=== PATIENT | male | born 1950 | race American Indian/Alaskan Native ===

== ENCOUNTER 2018-09-18 14:52 | Inpatient (IN) | payer MEDICARE ==
[2018-09-18] MEDS ORDERED: ASPIRIN PO ONE (14:58)
--- NOTE | 2018-09-18 14:58 | Emergency Department Report ---
Blank Doc - Documentation Documentation: This is a 67-year-old male that presents with chest pain. Stated started this morning. stated has SOB and radiating to left neck area. PMH includes CHF, a-fib, pulmonary edema, end stage kidney disease This initial assessment diagnostic orders/clinical plan/treatment(s) is/are subject to change based on patient's health status, clinical progression and re- assessment by fellow clinical providers in the ED. Further treatment and workup at subsequent clinical providers discretion. Patient/guardians urged not to elope from ED s their condition may be serious if not clinically assessed and managed. Initial orders include: 1-labs 2- chest xray 3- EKG
[2018-09-18] MEDS ORDERED: ASPIRIN ONE (15:02)
[2018-09-18 15:31] LABS: Basophils % (Auto) 0.5 % (0.0-1.8); Eosinophils % (Auto) 0.6 % (0.0-4.3); Hematocrit 34.9 % (35.5-45.6); Hemoglobin 11.2 gm/dl (11.8-15.2); Lymphocytes # (Auto) 0.6 K/mm3 (1.2-5.4); Lymphocytes % (Auto) 7.6 % (13.4-35.0); Mean Corpuscular HGB Conc 32 % (32-34); Mean Corpuscular Volume 92 fl (84-94); Monocytes % (Auto) 13.1 % (0.0-7.3); Platelet Count 134 K/mm3 (140-440); Red Cell Distribution Width 17.1 % (13.2-15.2)
[2018-09-18 15:38] LABS: Partial Thromboplastin Time 37.1 Sec. (24.2-36.6)
[2018-09-18 15:45] LABS: Albumin 3.7 g/dL (3.9-5); Calcium 10.3 mg/dL (8.4-10.2)
--- NOTE | 2018-09-18 16:07 | XRay Report ---
FINAL REPORT EXAM: XR CHEST ROUTINE 2V HISTORY: Chest Pain TECHNIQUE: Frontal and lateral views of the chest. PRIORS: Chest x-ray May 25, 2018. FINDINGS: Stable cardiomegaly. Stable elevated right hemidiaphragm. Small bilateral pleural effusions. No pneumothorax. No large con solidation. Mildly prominent bilateral pulmonary markings. There are no suspicious osseous lesions. Right upper thoracic vascular stent is unchanged. IMPRESSION: Suspect mild pulmonary vascular congestion. Small bilateral pleural effusions. Stable cardiomegaly.
[2018-09-18 16:19] LABS: INR 1.89 (0.87-1.13)
[2018-09-18 16:26] LABS: Chol/HDL Ratio 4.14 %
--- NOTE | 2018-09-18 16:38 | Emergency Department Report ---
ED Chest Pain HPI - General Chief Complaint: Chest Pain Stated Complaint: SEVERE NECK PAIN/CHEST PAIN Time Seen by Provider: 09/18/18 14:54 Source: patient Mode of arrival: Ambulatory Limitations: No Limitations - History of Present Illness Complaint: chest pain -: Sudden, This morning Time: 10:00 Onset: during rest Pain Location: left chest Pain Radiation: neck Severity: severe Severity scale (0 -10): 8 Quality: aching, pressure Consistency: now resolved Improves With: medication-other Worsens With: nothing re: denies: nausea, vomting Other Symptoms: cough Treatments Prior to Arrival: aspirin Aspirin use within the Past 7 Days: (1) Yes - Related Data Home Medications Medication Instructions Recorded Confirmed Last Taken Captopril (Nf) [Capoten (Nf)] 25 mg PO BID 05/25/18 05/25/18 Unknown Cinacalcet HCl [Sensipar] 90 mg PO DAILY 05/25/18 05/25/18 Unknown Furosemide [Lasix TAB] 40 mg PO QDAY 05/25/18 05/25/18 Unknown Hydralazine HCl 50 mg PO Q8H 05/25/18 05/25/18 Unknown Magnesium Oxide [Magnesium] 500 mg PO DAILY 05/25/18 05/25/18 Unknown Mycophenolate [Cellcept] 250 mg PO BID 05/25/18 05/25/18 Unknown NIFEdipine [Nifedipine ER] 30 mg PO BID 05/25/18 05/25/18 Unknown Pantoprazole [Protonix TAB] 40 mg PO QDAY 05/25/18 05/25/18 Unknown Potassium Chloride [Klor-Con] 20 meq PO BID 05/25/18 05/25/18 Unknown Tacrolimus [Prograf] 1 mg PO Q12H 05/25/18 05/25/18 Unknown Warfarin [Coumadin] 7.5 mg PO QDAY 05/25/18 05/25/18 Unknown predniSONE [Prednisone] 5 mg PO DAILY 05/25/18 05/25/18 Unknown Previous Rx's Medication Instructions Recorded Last Taken Type Polyethylene Glycol 3350 [Miralax 17 gm PO QDAY #30 powd.pack 05/27/18 Unknown Rx 3350] Allergies Allergy/AdvReac Type Severity Reaction Status Date / Time iodine Allergy Hives Verified 09/18/18 15:29 IVP DYE Allergy Hives Uncoded 08/31/13 09:00 Heart Score - HEART Score History: Highly suspicious EKG: Non-specific Age: > 65 Risk factors: > 3 risk factors or hx of atherosclerotic disease Troponin: 1-3x normal limit HEART Score: 8 - Critical Actions Critical Actions: >7 pts:50-65% risk of adverse cardiac event. Early invasive measures ED Review of Systems ROS: Stated complaint: SEVERE NECK PAIN/CHEST PAIN Other details as noted in HPI Comment: All other systems reviewed and negative Constitutional: denies: chills, fever Eyes: denies: eye pain, eye discharge, vision change ENT: denies: ear pain, throat pain Respiratory: cough, shortness of breath. denies: wheezing Cardiovascular: chest pain, edema. denies: palpitations Endocrine: no symptoms reported Gastrointestinal: denies: abdominal pain, nausea, diarrhea Genitourinary: denies: urgency, dysuria Musculoskeletal: denies: back pain, joint swelling, arthralgia Skin: denies: rash, lesions Neurological: denies: headache, weakness, paresthesias Psychiatric: denies: anxiety, depression Hematological/Lymphatic: denies: easy bleeding, easy bruising ED Past Medical Hx - Past Medical History Hx Hypertension: Yes Hx Congestive Heart Failure: Yes Hx Renal Disease: Yes (TRANSPLANT) Additional medical history: afib,PULMONARY EDEMA,ESRD - Surgical History Additional Surgical History: TRANSPLANT - Social History Smoking Status: Unknown if ever smoked Substance Use Type: None - Medications Home Medications: Home Medications Medication Instructions Recorded Confirmed Last Taken Type Captopril (Nf) [Capoten (Nf)] 25 mg PO BID 05/25/18 05/25/18 Unknown History Cinacalcet HCl [Sensipar] 90 mg PO DAILY 05/25/18 05/25/18 Unknown History Furosemide [Lasix TAB] 40 mg PO QDAY 05/25/18 05/25/18 Unknown History Hydralazine HCl 50 mg PO Q8H 05/25/18 05/25/18 Unknown History Magnesium Oxide [Magnesium] 500 mg PO DAILY 05/25/18 05/25/18 Unknown History Mycophenolate [Cellcept] 250 mg PO BID 05/25/18 05/25/18 Unknown History NIFEdipine [Nifedipine ER] 30 mg PO BID 05/25/18 05/25/18 Unknown History Pantoprazole [Protonix TAB] 40 mg PO QDAY 05/25/18 05/25/18 Unknown History Potassium Chloride [Klor-Con] 20 meq PO BID 05/25/18 05/25/18 Unknown History Tacrolimus [Prograf] 1 mg PO Q12H 05/25/18 05/25/18 Unknown History Warfarin [Coumadin] 7.5 mg PO QDAY 05/25/18 05/25/18 Unknown History predniSONE [Prednisone] 5 mg PO DAILY 05/25/18 05/25/18 Unknown History Polyethylene Glycol 3350 [Miralax 17 gm PO QDAY #30 powd.pack 05/27/18 Unknown Rx 3350] ED Physical Exam - General Limitations: No Limitations General appearance: alert, in no apparent distress - Head Head exam: Present: atraumatic, normocephalic - Eye Eye exam: Present: normal appearance, PERRL - ENT ENT exam: Present: normal exam, mucous membranes moist - Neck Neck exam: Present: normal inspection, full ROM. Absent: tenderness, meningismus - Respiratory Respiratory exam: Present: rales. Absent: respiratory distress - Cardiovascular Cardiovascular Exam: Present: regular rate, irregular rhythm, S3. Absent: systolic murmur, diastolic murmur, rubs, gallop - GI/Abdominal GI/Abdominal exam: Present: soft, normal bowel sounds. Absent: tenderness - Rectal Rectal exam: Present: deferred - Extremities Exam Extremities exam: Present: normal inspection, full ROM, normal capillary refill, pedal edema - Back Exam Back exam: Present: normal inspection, full ROM - Neurological Exam Neurological exam: Present: alert, oriented X3, CN II-XII intact - Psychiatric Psychiatric exam: Present: normal affect, normal mood - Skin Skin exam: Present: warm, dry, intact, normal color. Absent: rash ED Course Vital Signs 09/18/18 15:00 Temperature 97.6 F Pulse Rate 80 Respiratory 20 Rate Blood Pressure 154/105 O2 Sat by Pulse 98 Oximetry - Consultations Consultation #1: 09/18/18 17:34 I called and spoke with Dr Cody at [place] kidney transplant team and he recommend admitting the patient to the hospital here at [facility]. Consultation #2: 09/18/18 17:35 Dr Hess to admit patient for further management. LILY score - Lily Score Age > 65: (1) Yes Aspirin use within the Past 7 Days: (1) Yes 3 or more CAD Risk Factors: (1) Yes 2 or more Angina events in past 24 hrs: (1) Yes Known CAD with more than 50% Stenosis: (1) Yes Elevated Cardiac Markers: (1) Yes ST Deviation Greater than 0.5mm: (0) No LILY Score: 6 ED Medical Decision Making - Lab Data Result diagrams: 09/18/18 15:15 09/18/18 15:15 Lab Results 09/18/18 09/18/18 09/18/18 Range/Units 15:15 15:15 15:15 WBC 7.4 (4.5-11.0) K/mm3 RBC 3.80 (3.65-5.03) M/mm3 Hgb 11.2 L (11.8-15.2) gm/dl Hct 34.9 L (35.5-45.6) % MCV 92 (84-94) fl MCH 29 (28-32) pg MCHC 32 (32-34) % RDW 17.1 H (13.2-15.2) % Plt Count 134 L (140-440) K/mm3 Lymph % (Auto) 7.6 L (13.4-35.0) % [place] % (Auto) 13.1 H (0.0-7.3) % Eos % (Auto) 0.6 (0.0-4.3) % Baso % (Auto) 0.5 (0.0-1.8) % Lymph # 0.6 L (1.2-5.4) K/mm3 [place] # 1.0 H (0.0-0.8) K/mm3 Eos # 0.0 (0.0-0.4) K/mm3 Baso # 0.0 (0.0-0.1) K/mm3 Seg Neutrophils % 78.2 H (40.0-70.0) % Seg Neutrophils # 5.8 (1.8-7.7) K/mm3 PT 22.1 H (12.2-14.9) Sec. INR 1.89 H (0.87-1.13) APTT 37.1 H (24.2-36.6) Sec. Sodium 141 (137-145) mmol/L Potassium 3.8 (3.6-5.0) mmol/L Chloride 106.6 (98-107) mmol/L Carbon Dioxide 24 (22-30) mmol/L Anion Gap 14 mmol/L BUN 37 H (9-20) mg/dL Creatinine 2.4 H (0.8-1.5) mg/dL Estimated GFR 33 ml/min BUN/Creatinine Ratio 15 % Glucose 90 (75-100) mg/dL Calcium 10.3 H (8.4-10.2) mg/dL Total Bilirubin 0.60 (0.1-1.2) mg/dL AST 12 (5-40) units/L ALT 10 (7-56) units/L Alkaline Phosphatase 77 (35-129) units/L Troponin T 0.100 H (0.00-0.029) ng/mL Total Protein 6.0 L (6.3-8.2) g/dL Albumin 3.7 L (3.9-5) g/dL Albumin/Globulin Ratio 1.6 % Triglycerides 83 (2-149) mg/dL Cholesterol 236 H (50-199) mg/dL LDL Cholesterol Direct 182 H (50-130) mg/dL HDL Cholesterol 57 (40-59) mg/dL Cholesterol/HDL Ratio 4.14 % - EKG Data -: EKG Interpreted by Wa Rate: normal (64) - EKG Data When compared to previous EKG there are: no significant change (Compared to old EKG on 05/25/2019) Interpretation: nonspecific ST-T wave alicia, LVH 09/18/18 16:36 Atrial Fibrillation, Old anterior infarct. Lateral T wave inversion. No STEMI. - Radiology Data Radiology results: report reviewed, image reviewed CXR showed pleural effusion with increased pulmonary vascular markings consistent with CHF. - Medical Decision Making Chest Pain. ACS r/o M.I. Chronic kidney Disease. H/O [facility] transplant in 2014. Elevated Troponin, Patient is on Coumadin. I will admit to the hospitalist for further management and consult Cardiology. Critical care attestation.: If time is entered above; I have spent that time in minutes in the direct care of this critically ill patient, excluding procedure time. ED Disposition Clinical Impression: Elevated troponin, Kidney transplant recipient, ACS (acute coronary syndrome) Pulmonary edema Qualifiers: Chronicity: acute Qualified Code(s): J81.0 - Acute pulmonary edema CHF (congestive heart failure) Qualifiers: Heart failure type: diastolic Heart failure chronicity: chronic Qualified Code(s): I50.32 - Chronic diastolic (congestive) heart failure CKD (chronic kidney disease) Qualifiers: Chronic kidney disease stage: unspecified stage Qualified Code(s): N18.9 - Chronic kidney disease, unspecified Atrial fibrillation Qualifiers: Atrial fibrillation type: persistent Qualified Code(s): I48.1 - Persistent atrial fibrillation Disposition: OP ADMIT IP TO THIS HOSP Is pt being admited?: Yes Does the pt Need Aspirin: Yes Condition: Stable Instructions: Pulmonary Edema (ED) Time of Disposition: 17:40
[2018-09-18] MEDS ORDERED: NITRO-BID 2% TP ONE ×2 (17:06→17:27)
--- NOTE | 2018-09-18 17:32 | History and Physical Report ---
History of Present Illness Chief complaint: My neck hurts History of present illness: 67 YO Male with HTN, Atrial Fib on Therapeutic Anticoagulation, CKD S/P Renal Transplant on Graft Rejection Therapy, Malnutrition presents to ED for evaluation. Pt states that he has experienced sudden onset of pain in his neck that radiated down into his chest. Pt states that the pain is 8/10, severe, dull, radiates to and from his left neck, intermittent, not worsened with exertion or relieved with rest. Pt denies shortness of breath, fever, chills, palpitations, NVD, diaphoresis, trauma. Pt acknowledges decreased exercise chris erance. Pt transported to [facility] for further care and evaluation by his . Pt seen and evaluated in ED and found to have chest pain, Acute on Chronic Renal failure, as well as diastolic CHF. Pt admitted to telemetry. Cardiology team and Nephrology team consulted in ED. Past History Past Medical History: atrial fib, hypertension, renal failure Past Surgical History: valve replacement, Other (renal transplant, AVF) Social history: , lives with family. denies: smoking, alcohol abuse, prescription drug abuse Family history: CAD, hypertension, stroke Medications and Allergies Allergies Allergy/AdvReac Type Severity Reaction Status Date / Time iodine Allergy Hives Verified 09/18/18 15:29 IVP DYE Allergy Hives Uncoded 08/31/13 09:00 Home Medications Medication Instructions Recorded Confirmed Last Taken Type Captopril (Nf) [Capoten (Nf)] 25 mg PO BID 05/25/18 09/18/18 Unknown History Cinacalcet HCl [Sensipar] 90 mg PO HS 05/25/18 09/18/18 Unknown History Furosemide [Lasix TAB] 80 mg PO QDAY 05/25/18 09/18/18 Unknown History Hydralazine HCl 50 mg PO Q8H 05/25/18 09/18/18 Unknown History Mycophenolate [Cellcept] 250 mg PO BID 05/25/18 09/18/18 Unknown History NIFEdipine [Nifedipine ER] 60 mg PO BID 05/25/18 09/18/18 Unknown History Pantoprazole [Protonix TAB] 40 mg PO QDAY 05/25/18 09/18/18 Unknown History Potassium Chloride [Klor-Con] 20 meq PO BID 05/25/18 09/18/18 Unknown History Tacrolimus [Prograf] 1 mg PO Q12H 05/25/18 09/18/18 Unknown History Warfarin [Coumadin] 7.5 mg PO QDAY 05/25/18 09/18/18 Unknown History predniSONE [Prednisone] 5 mg PO DAILY 05/25/18 09/18/18 Unknown History Docusate Sodium [Colace CAP] 100 mg PO DAILY 09/18/18 09/18/18 Unknown History Multivitamin [Multiple Vitamins] 1 tab PO DAILY 09/18/18 09/18/18 Unknown His tory Review of Systems Constitutional: no weight loss, no weight gain, no fever, no chills Ears, nose, mouth and throat: no ear pain, no ear discharge, no tinnitis, no decreased hearing, no nose pain, no nasal congestion Cardiovascular: chest pain, no orthopnea, no palpitations, no edema, no shortness of breath, no dyspnea on exertion, no paroxysmal nocturnal dyspnea Respiratory: no cough, no cough with sputum, no excessive sputum, no hemoptysis Gastrointestinal: no nausea, no vomiting, no diarrhea Genitourinary Male: no dysuria, no hematuria, no flank pain Rectal: no pain, no incontinence, no bleeding Musculoskeletal: no neck stiffness, no neck pain, no shooting arm pain, no arm numbness/tingling Integumentary: no rash, no pruritis, no redness, no sores, no wounds Neurological: no paralysis, no weakness, no parathesias, no numbness, no tingling Psychiatric: no anxiety, no memory loss, no change in sleep habits, no sleep disturbances, no insomnia, no hypersomnia Endocrine: no cold intolerance, no heat intolerance, no polyphagia, no excessive thirst, no polydipsia, no polyuria Hematologic/Lymphatic: no easy bruising, no easy bleeding, no lymphadenopathy, no lymphedema Allergic/Immunologic: no urticaria, no allergic rhinitis, no persistent infections, no anaphylaxis Exam - Constitutional Vitals: Temp Pulse Resp BP Pulse Ox 97.6 F 80 20 154/105 98 09/18/18 15:00 09/18/18 15:00 09/18/18 15:00 09/18/18 15:00 09/18/18 15:00 General appearance: Present: mild distress - EENT Eyes: Present: PERRL ENT: hearing intact, clear oral mucosa - Neck Neck: Present: supple, normal ROM - Respiratory Respiratory effort: normal Respiratory: bilateral: CTA - Cardiovascular Heart Sounds: Present: S1 & S2. Absent: rub, click - Extremities Extremities: pulses symmetrical, No edema Peripheral Pulses: within normal limits - Abdominal General gastrointestinal: Present: soft, non-tender, non-distended, normal bowel sounds Male genitourinary: Present: normal - Integumentary Integumentary: Present: clear, warm, dry - Musculoskeletal Musculoskeletal: gait normal, strength equal bilaterally - Psychiatric Psychiatric: appropriate mood/affect, intact judgment & insight - Neurologic Neurologic: CNII-XII intact, moves all extremities Results - Labs CBC & Chem 7: 09/18/18 15:15 09/18/18 15:15 Labs: Abnormal lab results 09/18/18 09/18/18 09/18/18 Range/Units 15:15 15:15 15:15 Hgb 11.2 L (11.8-15.2) gm/dl Hct 34.9 L (35.5-45.6) % RDW 17.1 H (13.2-15.2) % Plt Count 134 L (140-440) K/mm3 Lymph % (Auto) 7.6 L (13.4-35.0) % [place] % (Auto) 13.1 H (0.0-7.3) % Lymph # 0.6 L (1.2-5.4) K/mm3 [place] # 1.0 H (0.0-0.8) K/mm3 Seg Neutrophils % 78.2 H (40.0-70.0) % PT 22.1 H (12.2-14.9) Sec. INR 1.89 H (0.87-1.13) APTT 37.1 H (24.2-36.6) Sec. BUN 37 H (9-20) mg/dL Creatinine 2.4 H (0.8-1.5) mg/dL Calcium 10.3 H (8.4-10.2) mg/dL Troponin T 0.100 H (0.00-0.029) ng/mL Total Protein 6.0 L (6.3-8.2) g/dL Albumin 3.7 L (3.9-5) g/dL Cholesterol 236 H (50-199) mg/dL LDL Cholesterol Direct 182 H (50-130) mg/dL Assessment and Plan - Patient Problems (1) ARF (acute renal failure) with tubular necrosis Current Visit: Yes Status: Acute Plan to address problem: IVF resuscitation, nephrology consulted, monitor uop q shift, avoid nephrotoxic agents. (2) HTN (hypertension) Current Visit: Yes Status: Acute Qualifiers: Hypertension type: essential hypertension Qualified Code(s): I10 - Essential (primary) hypertension Plan to address problem: monitor bp q shift, (3) Diastolic CHF Current Visit: Yes Status: Suspected Qualifiers: Heart failure chronicity: acute on chronic Qualified Code(s): I50.33 - Acute on chronic diastolic (congestive) heart failure Plan to address problem: Admit to telemetry, strict I/O, monitor uop q shift, daily weight, monitor bp q shift, cardiology consulted in ED, bnp, chest x ray, pulse oximetry (4) Atrial fibrillation Current Visit: Yes Status: Acute Qualifiers: Atrial fibrillation type: persistent Qualified Code(s): I48.1 - Persistent atrial fibrillation Plan to address problem: continue therapeutic anticoagulation, repeat INR, Initial INR is subtherqpeutic. (5) Kidney transplant recipient Current Visit: Yes Status: Acute Plan to address problem: Nephrology consulted in ED, continue prehospital medication. (6) Chest pain Current Visit: Yes Status: Acute Plan to address problem: Admit to telemetry, serial cardiac enzymes, cardiology consulted in ED, D dimer, therapeutic anticoagulation, review echo, morphine, supplemental oxygen,nitro, CT Neck to evaluate for pain that radiates to and from neck but is not reproducible upon palpitation, normal auscultation of neck vessels on exam. (7) DVT prophylaxis Current Visit: No Status: Acute Plan to address problem: SCD to BLE while in bed,
[2018-09-18] MEDS ORDERED: SODIUM CHLORIDE FLUSH SYRINGE 10 ML IV PRN ×2 (19:14→19:16)
[2018-09-18] MEDS ORDERED: ZOFRAN IV PRN (19:14)
[2018-09-18] MEDS ORDERED: TYLENOL PO PRN (19:14)
[2018-09-18] MEDS ORDERED: PROVENTIL IH PRN (19:14)
[2018-09-18] MEDS ORDERED: PEPCID PO SCH (22:00)
[2018-09-18] MEDS ORDERED: APRESOLINE IV PRN (22:24)
[2018-09-18] MEDS: PEPCID PO SCH (22:45)
[2018-09-18] MEDS: SODIUM CHLORIDE FLUSH SYRINGE 10 ML IV SCH (22:45)
[2018-09-19] MEDS ORDERED: NON-FORMULARY (Hydralazine Hcl [Hydralazine Hcl] 50 MG) PO SCH (07:45)
[2018-09-19 09:18] LABS: Hematocrit 34.8 % (35.5-45.6); Hemoglobin 11.4 gm/dl (11.8-15.2); Mean Corpuscular HGB Conc 33 % (32-34); Mean Corpuscular Volume 90 fl (84-94); Red Blood Count 3.89 M/mm3 (3.65-5.03); Red Cell Distribution Width 17.3 % (13.2-15.2)
[2018-09-19 09:29] LABS: Calcium 10.7 mg/dL (8.4-10.2)
[2018-09-19 10:00] LABS: Platelet Count 61 K/mm3 (140-440)
[2018-09-19] MEDS ORDERED: PROTONIX PO SCH (10:00)
[2018-09-19] MEDS ORDERED: NON-FORMULARY (Nifedipine [Nifedipine Er] 60 MG) PO SCH (10:00)
[2018-09-19] MEDS ORDERED: MULTIVITAMIN PO SCH (10:00)
[2018-09-19] MEDS ORDERED: COUMADIN PO SCH ×2 (10:00→17:00)
--- NOTE | 2018-09-19 10:40 | Cat Scan Report ---
CT SCAN OF THE CERVICAL SPINE: HISTORY: Neck pain. TECHNIQUE: Contiguous 1.25 mm axial images of the cervical spine were obtained. Sagittal and coronal reformatted images. FINDINGS: No relevant comparison at this facility. There is reversal of normal cervical lordosis. There appears to be fusion of the C4-5 disc space which may be congenital. There is severe degenerative disc disease at C3-4, C5-6 and C6-7. Moderate bilateral uncovertebral spurring is suspected at these levels bilaterally. The remaining disc levels are within normal limits. The facet joints are in appropriate relationship. No significant hypertrophic changes. No obvious acute fracture, bony destruction or bone lesion. Although intraspinal contents can be obscured on CT, no large epidural process is appreciated. IMPRESSION: Reversal of the normal cervical lordosis. Severe degenerative disc disease as outlined above. Apparent congenital disc fusion at C4-5. No acute process is detected on noncontrast CT.
--- NOTE | 2018-09-19 12:20 | Consultation ---
HISTORY OF PRESENT ILLNESS: The patient is a 67-year-old male who normally goes to [place] and he has a history of heart failure, leaky valve, hypertension and kidney transplant. It has been a while since he has had any stress testing or echocardiography. He is on medications for atrial fibrillation. He presented with neck pain that radiated to the chest and had a pleuritic component. It also would hurt to cough. There was no tenderness. Did not describe any exertional chest pain, he is relatively inactive. He occasionally has dyspnea on exertion. He has been having ankle edema. He cannot tell me which valve leaks. He does not watch his weight. 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 There is no history of coronary disease or strokes. The pain was prolonged and continues to be there to a mild degree. PAST MEDICAL HISTORY: Smoking: None. Alcohol: No heavy use. MEDICATIONS: See the nurse's list. OPERATIONS: Renal transplant. ALLERGIES: IODINE, IVP DYE. REVIEW OF SYSTEMS: He is inactive due to right knee problems. He did not describe any other medical problems or complaints. PHYSICAL EXAMINATION: GENERAL: Well-developed, well-nourished, no acute distress, alert, oriented and cooperative. Mental status normal. EYES, NOSE, AND THROAT: Unremarkable. NECK: Reveals JVD. There are no bruits. Neck is supple, no masses. LUNGS: Diminished breath sounds. No labored respirations. No rales or rhonchi. HEART: Irregular rhythm with a grade 2 systolic murmur along the left sternal border and a grade 2 diastolic murmur heard on both sides of the sternum. ABDOMEN: Soft, nontender, no masses. EXTREMITIES: No cyanosis, clubbing. Mild pedal edema. Peripheral pulses are intact, but diminished. NEUROLOGICAL: Symmetrical. DIAGNOSTIC DATA: EKG: Atrial fibrillation, possible prior septal infarct, LVH with repolarization abnormality. IMPRESSION: 1. Atypical chest pain suggestive of musculoskeletal etiology and no significant elevation of troponin. Troponin is probably elevated due to chronic kidney disease. Watch for evidence of pulmonary embolus or aortic dissection. 2. Congestive heart failure. 3. Aortic regurgitation murmur. 4. Uncontrolled hypertension. 5. Chronic kidney disease, status post renal transplant. 6. Hyperlipidemia. 7. Atrial fibrillation, on anticoagulation. 8. Thrombocytopenia. PLAN: Treat for heart failure, hypertension and perform echocardiography. Encourage dietary restrictions, daily weights, daily blood pressures. Thank you for this consultation. JOB# [id number] MORTEZA/TARA
[2018-09-19] MEDS: PEPCID PO SCH ×2 (12:37→22:07)
[2018-09-19] MEDS: LASIX PO SCH (12:37)
[2018-09-19] MEDS: CELLCEPT PO SCH ×2 (12:37→22:07)
[2018-09-19] MEDS: DELTASONE PO SCH (12:37)
[2018-09-19] MEDS: COLACE PO SCH (12:37)
[2018-09-19] MEDS ORDERED: APRESOLINE PO SCH ×2 (14:00)
--- NOTE | 2018-09-19 14:14 | Progress Note ---
Assessment and Plan (1) Chest pain monitor with serial cardiac enzymes, cont therapeutic anticoagulation, review echo, place on morphine, supplemental oxygen,nitro patch, CT Neck to evaluate for pain that radiates to and from neck but is not reproducible upon palpitation, normal auscultation of neck vessels on exam. cardiology consulted in ED - will follow recommendation (2) HTN (hypertension) monitor bp q shift, resume home meds (3) Diastolic CHF strict I/O, monitor uop q shift, daily weight, monitor bp q shift, cardiology consulted in ED, Preserved EF on echo on 05/2018 (4) Atrial fibrillation continue therapeutic anticoagulation, repeat INR, Initial INR is subtherqpeutic. (5) Kidney transplant recipient Nephrology consulted in ED, continue prehospital medication. (6) CKD with h/o renal transplant cont IVF resuscitation, nephrology consulted, monitor uop q shift, avoid nephrotoxic agents. cont home meds - anti graft rejection therapy (7) DVT prophylaxis SCD to BLE while in bed, Brief History: 67 YO Male with HTN, Atrial Fib on Therapeutic Anticoagulation, CKD S/P Renal Transplant on Graft Rejection Therapy, Malnutrition presents to ED for evaluation of sudden onset of pain in his neck that radiated down into his chest. Pt transported to [facility] for further care and evaluation by his . Pt seen and evaluated in ED and found to have chest pain, possible diastolic CHF. Pt admitted to telemetry. Cardiology team and Nephrology team consulted in ED. Hospitalist Physical exam: GENERAL: well-developed and well-nourished lying on bed appeared to be in no discomfort. HEENT: Normocephalic. Atraumatic. No conjunctival congestion or icterus. Patient has moist mucous membranes. NECK: Supple. Trachea midline. CHEST/LUNGS: Clear to auscultated bilaterally, breathing nonlabored. No wheezes crackles or rhonchi. HEART/CARDIOVASCULAR: Regular in rate and rhythm. S1 and S2 positive. ABDOMEN: Abdomen is soft, nontender. Patient has normal bowel sounds. SKIN: There is no rash. Warm and dry. NEURO: No focal motor deficit. Follows command. MUSCULOSKELETAL: No joint effusion or tenderness. EXTRIMITY: No edema, no cyanosis or clubbing. PSYCH: Cooperative. Subjective Date of service: 09/19/18 Interval history: Patient seen and examined. Medical records and medication list reviewed. No acute event overnight noted by the RN. Patient c/o intermittent chest pain but denies difficulty breathing. Patient is tolerating diet. Discussed plan of care at bedside with patient. Objective - Constitutional Vitals: Vital Signs - 12hr 09/19/18 09/19/18 09/19/18 04:50 08:54 10:38 Temperature 98.2 F 97.5 F L Pulse Rate 58 L 67 69 Respiratory 16 18 Rate Blood Pressure 159/84 173/97 O2 Sat by Pulse 97 96 Oximetry - Labs CBC & Chem 7: 09/19/18 08:41 09/19/18 08:41 Labs: Abnormal lab results 09/18/18 09/18/18 09/18/18 Range/Units 15:15 15:15 15:15 Hgb 11.2 L (11.8-15.2) gm/dl Hct 34.9 L (35.5-45.6) % RDW 17.1 H (13.2-15.2) % Plt Count 134 L (140-440) K/mm3 Lymph % (Auto) 7.6 L (13.4-35.0) % [place]roy[place] % (Auto) 13.1 H (0.0-7.3) % Lymph # 0.6 L (1.2-5.4) K/mm3 [place] # 1.0 H (0.0-0.8) K/mm3 Seg Neutrophils % 78.2 H (40.0-70.0) % PT 22.1 H (12.2-14.9) Sec. INR 1.89 H (0.87-1.13) APTT 37.1 H (24.2-36.6) Sec. D-Dimer (0-234) ng/mlDDU Chloride (98-107) mmol/L Carbon Dioxide (22-30) mmol/L BUN 37 H (9-20) mg/dL Creatinine 2.4 H (0.8-1.5) mg/dL Calcium 10.3 H (8.4-10.2) mg/dL Troponin T 0.100 H (0.00-0.029) ng/mL Total Protein 6.0 L (6.3-8.2) g/dL Albumin 3.7 L (3.9-5) g/dL Cholesterol 236 H (50-199) mg/dL LDL Cholesterol Direct 182 H (50-130) mg/dL 09/18/18 09/18/18 09/18/18 Range/Units 15:15 17:59 22:45 Hgb (11.8-15.2) gm/dl Hct (35.5-45.6) % RDW (13.2-15.2) % Plt Count (140-440) K/mm3 Lymph % (Auto) (13.4-35.0) % Arroyo % (Auto) (0.0-7.3) % Lymph # (1.2-5.4) K/mm3 [place] # (0.0-0.8) K/mm3 Seg Neutrophils % (40.0-70.0) % PT (12.2-14.9) Sec. INR (0.87-1.13) APTT (24.2-36.6) Sec. D-Dimer 766.2 H (0-234) ng/mlDDU Chloride (98-107) mmol/L Carbon Dioxide (22-30) mmol/L BUN (9-20) mg/dL Creatinine (0.8-1.5) mg/dL Calcium (8.4-10.2) mg/dL Troponin T 0.102 H* 0.091 H (0.00-0.029) ng/mL Total Protein (6.3-8.2) g/dL Albumin (3.9-5) g/dL Cholesterol (50-199) mg/dL LDL Cholesterol Direct (50-130) mg/dL 09/18/18 09/19/18 09/19/18 Range/Units 22:45 01:05 08:41 Hgb 11.4 L (11.8-15.2) gm/dl Hct 34.8 L (35.5-45.6) % RDW 17.3 H (13.2-15.2) % Plt Count 61 L (140-440) K/mm3 Lymph % (Auto) (13.4-35.0) % Arroyo % (Auto) (0.0-7.3) % Lymph # (1.2-5.4) K/mm3 [place] # (0.0-0.8) K/mm3 Seg Neutrophils % (40.0-70.0) % PT 23.1 H (12.2-14.9) Sec. INR 2.00 H (0.87-1.13) APTT (24.2-36.6) Sec. D-Dimer (0-234) ng/mlDDU Chloride (98-107) mmol/L Carbon Dioxide (22-30) mmol/L BUN (9-20) mg/dL Creatinine (0.8-1.5) mg/dL Calcium (8.4-10.2) mg/dL Troponin T 0.092 H (0.00-0.029) ng/mL Total Protein (6.3-8.2) g/dL Albumin (3.9-5) g/dL Cholesterol (50-199) mg/dL LDL Cholesterol Direct (50-130) mg/dL 09/19/18 Range/Units 08:41 Hgb (11.8-15.2) gm/dl Hct (35.5-45.6) % RDW (13.2-15.2) % Plt Count (140-440) K/mm3 Lymph % (Auto) (13.4-35.0) % Arroyo % (Auto) (0.0-7.3) % Lymph # (1.2-5.4) K/mm3 [place] # (0.0-0.8) K/mm3 Seg Neutrophils % (40.0-70.0) % PT (12.2-14.9) Sec. INR (0.87-1.13) APTT (24.2-36.6) Sec. D-Dimer (0-234) ng/mlDDU Chloride 107.1 H (98-107) mmol/L Carbon Dioxide 20 L (22-30) mmol/L BUN 32 H (9-20) mg/dL Creatinine 2.2 H (0.8-1.5) mg/dL Calcium 10.7 H (8.4-10.2) mg/dL Troponin T (0.00-0.029) ng/mL Total Protein (6.3-8.2) g/dL Albumin (3.9-5) g/dL Cholesterol (50-199) mg/dL LDL Cholesterol Direct (50-130) mg/dL
[2018-09-19] MEDS: PROGRAF PO SCH ×2 (16:27→22:12)
[2018-09-19] MEDS: POTASSIUM CHLORIDE PO SCH ×2 (16:27→22:08)
[2018-09-19] MEDS: APRESOLINE PO SCH ×2 (16:27→22:07)
[2018-09-19] MEDS: PROCARDIA XL PO SCH ×2 (16:27→22:07)
[2018-09-19] MEDS: HALFPRIN EC PO SCH (16:30)
[2018-09-19] MEDS: SODIUM CHLORIDE FLUSH SYRINGE 10 ML IV SCH ×2 (21:30→22:14)
[2018-09-19] MEDS ORDERED: NON-FORMULARY (Cinacalcet Hcl [Sensipar] 90 MG) PO SCH (22:00)
[2018-09-19] MEDS ORDERED: SENSIPAR PO SCH (22:00)
[2018-09-20] MEDS: APRESOLINE PO SCH ×2 (05:31→15:52)
[2018-09-20 07:44] LABS: INR 1.72 (0.87-1.13)
--- NOTE | 2018-09-20 10:08 | Consultation ---
History of Present Illness - History of Present Illness Thank you for the consultation Patient was evaluated on 09/19/2018 Time of service 9:45 in the morning Source of information: Patient himself as well as clinic records History of presenting illness Patient is 67-year-old -[place] male who has been admitted here for wo rkup of chest pain, patient has known history of kidney transplant in fact was last seen in our office on 05/25/2018 he does have history of cough chronic swelling in both lower extremity as well as the kidney transplant in January 2015 patient also has had BK virus infection. He has issues with noncompliance with his fluid and sodium intake and occasionally does have worsening swelling this time however doing much better he also suffers from chronic hypercalcemia, secondary hyperparathyroidism as well as anemia of chronic kidney disease. Patient concurrently does have history of cardiomyopathy as well as congestive heart failure and history of proteinuria. He is currently not been taking any form of non-steroidal drugs. 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: No acute distress HEENT: Normocephalic/atraumatic skull oral mucosa moist minimal pallor no icterus or uremic order Neck: Supple without any thyromegaly nodular mass or JVD Chest: Clear to auscultation anteriorly few faint basilar crackles otherwise unremarkable Heart: Regular rate and rhythm S1 and S2 heard no S3-S4 no pericardial rub Abdomen: Soft nontender no guarding rigidity rebound organomegaly no suprapubic masses, no CVA tenderness no renal bruit Back: No CVA tenderness Derm: No petechial rashes dry skin Extremity: Pulses palpable no peripheral cyanosis, 1+ edema dry skin Neurological: Alert awake follows commands Psychiatric: No agitation and aggression Labs and x-rays: Were reviewed from this admission Assessment and plan; Chest pain: Workup in progress Hypertension and volume: Patient needs to do better with fluid and sodium issues this has been a chronic issue in the outpatient setting Pending a CT scan of the neck Kidney transplant recipient continue the current dose of immunosuppressants, continue to monitor renal function avoid nephrotoxic medication History of congestive heart failure cardiomyopathy, proteinuria, secondary hyperparathyroidism He must follow renal and cardiac diet ad a detailed discussion with patient about the plan of care from renal standpoint. All questions were answered labs and pertinent imaging findings were explained to the patient and simple Jordanian. Advised patient to make an appointment for follow-up within a week of the discharge, for proper renal care We'll continue to follow and make recommendation from renal standpoint Thank you for the consultation. Past History Past Medical History: atrial fib, hypertension, renal failure Past Surgical History: valve replacement, Other (renal transplant, AVF) Social history: , lives with family. denies: smoking, alcohol abuse, pr escription drug abuse Family history: CAD, hypertension, stroke Medications and Allergies Allergies Allergy/AdvReac Type Severity Reaction Status Date / Time iodine Allergy Hives Verified 09/18/18 15:29 IVP DYE Allergy Hives Uncoded 08/31/13 09:00 Home Medications Medication Instructions Recorded Confirmed Last Taken Type Captopril (Nf) [Capoten (Nf)] 25 mg PO BID 05/25/18 09/18/18 Unknown History Cinacalcet HCl [Sensipar] 90 mg PO HS 05/25/18 09/18/18 Unknown History Furosemide [Lasix TAB] 80 mg PO QDAY 05/25/18 09/18/18 Unknown History Hydralazine HCl 50 mg PO Q8H 05/25/18 09/18/18 Unknown History Mycophenolate [Cellcept] 250 mg PO BID 05/25/18 09/18/18 Unknown History NIFEdipine [Nifedipine ER] 60 mg PO BID 05/25/18 09/18/18 Unknown History Pantoprazole [Protonix TAB] 40 mg PO QDAY 05/25/18 09/18/18 Unknown History Potassium Chloride [Klor-Con] 20 meq PO BID 05/25/18 09/18/18 Unknown History Tacrolimus [Prograf] 1 mg PO Q12H 05/25/18 09/18/18 Unknown History Warfarin [Coumadin] 7.5 mg PO QDAY 05/25/18 09/18/18 Unknown History predniSONE [Prednisone] 5 mg PO DAILY 05/25/18 09/18/18 Unknown History Docusate Sodium [Colace CAP] 100 mg PO DAILY 09/18/18 09/18/18 Unknown History Multivitamin [Multiple Vitamins] 1 tab PO DAILY 09/18/18 09/18/18 Unknown History Active Meds: Active Medications Acetaminophen (Tylenol) 650 mg PO Q4H PRN PRN Reason: Pain MILD(1-3)/Fever >100.5/NAVARRETE Albuterol (Proventil) 2.5 mg IH Q4HRT PRN PRN Reason: Shortness Of Breath Aspirin (Halfprin Ec) 81 mg PO QDAY [facility] Last Admin: 09/19/18 16:30 Dose: 81 mg Documented by: Atorvastatin Calcium (Lipitor) 40 mg PO QHS [facility] Last Admin: 09/19/18 22:07 Dose: 40 mg Documented by: Cinacalcet (Sensipar) 90 mg PO QHS [facility] Last Admin: 09/19/18 22:07 Dose: 90 mg Documented by: Docusate Sodium (Colace) 100 mg PO DAILY [facility] Last Admin: 09/19/18 12:37 Dose: 100 mg Documented by: Famotidine (Pepcid) 10 mg PO BID [facility] Last Admin: 09/19/18 22:07 Dose: 10 mg Documented by: Furosemide (Lasix) 80 mg PO QDAY [facility] Last Admin: 09/19/18 12:37 Dose: 80 mg Documented by: Hydralazine HCl (Apresoline) 10 mg IV Q6H PRN PRN Reason: Hypertension Last Admin: 09/18/18 22:45 Dose: 10 mg Documented by: Hydralazine HCl (Apresoline) 50 mg PO Q8HR [facility] Last Admin: 09/20/18 05:31 Dose: 50 mg Documented by: Mycophenolate Mofetil (Cellcept) 250 mg PO BID [facility] Last Admin: 09/19/18 22:07 Dose: 250 mg Documented by: Nifedipine (Procardia Xl) 60 mg PO BID [facility] Last Admin: 09/19/18 22:07 Dose: 60 mg Documented by: Ondansetron HCl (Zofran) 4 mg IV Q8H PRN PRN Reason: Nausea And Vomiting Pantoprazole Sodium (Protonix) 40 mg PO QDAY [facility] Last Admin: 09/19/18 12:37 Dose: 40 mg Documented by: Potassium Chloride (Potassium Chloride) 20 meq PO BID [facility] Last Admin: 09/19/18 22:08 Dose: 20 meq Documented by: Prednisone (Deltasone) 5 mg PO DAILY [facility] Last Admin: 09/19/18 12:37 Dose: 5 mg Documented by: Sodium Chloride (Sodium Chloride Flush Syringe 10 Ml) 10 ml IV BID [facility] Last Admin: 09/19/18 22:14 Dose: 10 ml Documented by: Sodium Chloride (Sodium Chloride Flush Syringe 10 Ml) 10 ml IV PRN PRN PRN Reason: LINE FLUSH Tacrolimus (Prograf) 1 mg PO Q12H [facility] Last Admin: 09/19/18 22:12 Dose: 1 mg Documented by: Warfarin Sodium (Coumadin) 7.5 mg PO DAILY@1700 [facility] Last Admin: 09/19/18 16:31 Dose: 7.5 mg Documented by: Exam - Vital Signs Vital signs: Vital Signs Temp Pulse Resp BP Pulse Ox 97.6 F 80 20 154/105 98 09/18/18 15:00 09/18/18 15:00 09/18/18 15:00 09/18/18 15:00 09/18/18 15:00 Results - Lab Results 09/19/18 08:41 09/19/18 08:41 Most recent lab results Calcium 10.7 mg/dL (8.4-10.2) H 09/19/18 08:41
--- NOTE | 2018-09-20 10:11 | Progress Note ---
Subjective Interval history: Patient was seen today for follow-up on multiple renal related issues Events of this hospitalization noted Patient claims to be taking Sensipar in the outpatient setting His chest pain and neck pain is better Patient denies having any chest pain pressure or shortness of breath Vitals labs intake output medications were reviewed Social history: Reviewed Allergies: Reviewed Family history: Reviewed Physical examination HEENT: Oral mucosa moist no pallor or icterus Neck: Supple no JVD Chest: Clear to auscultation anteriorly CVS: Regular rate and rhythm S1 and S2 heard Abdomen: Soft nontender no suprapubic masses no organomegaly appreciable Extremity: Dry skin less than 1+ peripheral edema Musculoskeletal: No joint effusion noted in knees and ankle Neurological: Alert awake Dermatology: No petechial rashes Psychiatry: No evidence of any agitation and aggression noted Assessment and plan Kidney transplant recipient: Continue the current doses of immunosuppressants, including prednisone CellCept as well as tacrolimus Renal function has been stable creatinine was 2.4 in May 2018 Congestive heart failure hypertension continue with diuretic for now, ejection fraction appears to be preserved Atrial fibrillation currently and anticoagulation Mild metabolic acidosis: Patient needs to be monitored for now Hypercalcemia chronic to monitor and follow check parathyroid level avoid any calcium or multivitamin, continue with Sensipar for now Creatinine currently around 2.4 Anemia likely in chronic kidney disease patient also does have thrombocytopenia needs to be monitored, avoid hydralazine in patients with thrombocytopenia Patient was adequately counseled and educated regarding multiple renal related issues Pertinent lab findings were discussed with patient, patient does exhibit good understanding of renal issues We'll continue to follow and make recommendation from renal standpoint Objective - Vital Signs Vital signs: Vital Signs - 12hr 09/19/18 09/20/18 09/20/18 23:30 05:29 05:31 Temperature 98.4 F 97.5 F L Pulse Rate 60 59 L 61 Respiratory 18 16 Rate Blood Pressure 171/82 147/74 147/74 O2 Sat by Pulse 97 93 Oximetry 09/20/18 09/20/18 08:27 08:28 Temperature 99.4 F Pulse Rate 89 Respiratory 20 Rate Blood Pressure 149/84 O2 Sat by Pulse 97 99 Oximetry - Lab 09/19/18 08:41 09/19/18 08:41 Most recent lab results Calcium 10.7 mg/dL (8.4-10.2) H 09/19/18 08:41 Medications & Allergies - Medications Allergies/Adverse Reactions: Allergies iodine Allergy (Verified 09/18/18 15:29) Hives IVP DYE Allergy (Uncoded 08/31/13 09:00) Hives Home Medications: Home Medications Medication Instructions Recorded Confirmed Last Taken Type Captopril (Nf) [Capoten (Nf)] 25 mg PO BID 05/25/18 09/18/18 Unknown History Cinacalcet HCl [Sensipar] 90 mg PO HS 05/25/18 09/18/18 Unknown History Furosemide [Lasix TAB] 80 mg PO QDAY 05/25/18 09/18/18 Unknown History Hydralazine HCl 50 mg PO Q8H 05/25/18 09/18/18 Unknown History Mycophenolate [Cellcept] 250 mg PO BID 05/25/18 09/18/18 Unknown History NIFEdipine [Nifedipine ER] 60 mg PO BID 05/25/18 09/18/18 Unknown History Pantoprazole [Protonix TAB] 40 mg PO QDAY 05/25/18 09/18/18 Unknown History Potassium Chloride [Klor-Con] 20 meq PO BID 05/25/18 09/18/18 Unknown History Tacrolimus [Prograf] 1 mg PO Q12H 05/25/18 09/18/18 Unknown History Warfarin [Coumadin] 7.5 mg PO QDAY 05/25/18 09/18/18 Unknown History predniSONE [Prednisone] 5 mg PO DAILY 05/25/18 09/18/18 Unknown History Docusate Sodium [Colace CAP] 100 mg PO DAILY 09/18/18 09/18/18 Unknown History Multivitamin [Multiple Vitamins] 1 tab PO DAILY 09/18/18 09/18/18 Unknown H istory Active Medications: Generic Name Dose Route Start Last Admin Trade Name Freq PRN Reason Stop Dose Admin Acetaminophen 650 mg 09/18/18 19:14 Tylenol PO Q4H PRN Pain MILD(1-3)/Fever >100.5/NAVARRETE Albuterol 2.5 mg 09/18/18 19:14 Proventil IH Q4HRT PRN Shortness Of Breath Aspirin 81 mg 09/19/18 10:00 09/19/18 16:30 Halfprin Ec PO 81 mg QDAY [facility] Administration Atorvastatin Calcium 40 mg 09/19/18 22:00 09/19/18 22:07 Lipitor PO 40 mg QHS [facility] Administration Cinacalcet 90 mg 09/19/18 22:00 09/19/18 22:07 Sensipar PO 90 mg QHS [facility] Administration Docusate Sodium 100 mg 09/19/18 10:00 09/19/18 12:37 Colace PO 100 mg DAILY [facility] Administration Famotidine 10 mg 09/18/18 22:00 09/19/18 22:07 Pepcid PO 10 mg BID [facility] Administration Furosemide 80 mg 09/19/18 10:00 09/19/18 12:37 Lasix PO 80 mg QDAY [facility] Administration Hydralazine HCl 10 mg 09/18/18 22:24 09/18/18 22:45 Apresoline IV 10 mg Q6H PRN Administration Hypertension Hydralazine HCl 50 mg 09/19/18 14:00 09/20/18 05:31 Apresoline PO 50 mg Q8HR [facility] Administration Mycophenolate Mofetil 250 mg 09/19/18 10:00 09/19/18 22:07 Cellcept PO 250 mg BID [facility] Administration Nifedipine 60 mg 09/19/18 13:15 09/19/18 22:07 Procardia Xl PO 60 mg BID [facility] Administration Ondansetron HCl 4 mg 09/18/18 19:14 Zofran IV Q8H PRN Nausea And Vomiting Pantoprazole Sodium 40 mg 09/19/18 10:00 09/19/18 12:37 Protonix PO 40 mg QDAY [facility] Administration Potassium Chloride 20 meq 09/19/18 10:00 09/19/18 22:08 Potassium Chloride PO 20 meq BID [facility] Administration Prednisone 5 mg 09/19/18 10:00 09/19/18 12:37 Deltasone PO 5 mg DAILY [facility] Administration Sodium Chloride 10 ml 09/18/18 22:00 09/19/18 22:14 Sodium Chloride Flush Syringe 10 Ml IV 10 ml BID [facility] Administration Sodium Chloride 10 ml 09/18/18 19:14 Sodium Chloride Flush Syringe 10 Ml IV PRN PRN LINE FLUSH Tacrolimus 1 mg 09/19/18 08:00 09/19/18 22:12 Prograf PO 1 mg Q12H [facility] Administration Warfarin Sodium 7.5 mg 09/19/18 17:00 09/19/18 16:31 Coumadin PO 7.5 mg DAILY@1700 [facility] Administration
[2018-09-20] MEDS: PROCARDIA XL PO SCH (10:40)
[2018-09-20] MEDS: DELTASONE PO SCH (10:41)
[2018-09-20] MEDS: PROGRAF PO SCH (10:41)
[2018-09-20] MEDS: CELLCEPT PO SCH (10:41)
[2018-09-20] MEDS: HALFPRIN EC PO SCH (10:41)
[2018-09-20] MEDS: LASIX PO SCH (10:41)
[2018-09-20] MEDS: COLACE PO SCH (10:41)
[2018-09-20] MEDS: POTASSIUM CHLORIDE PO SCH (10:41)
--- NOTE | 2018-09-20 11:05 | Progress Note ---
Assessment and Plan Hypertension, poorly controlled Chronic renal failure prior renal transplant Valvular heart disease moderate AI by echo 11/2017. mild AI with severe LA dilatation. Normal EF 55% by echo 05/2018. Atrial fibrillation, persistent on anticoagulation with Coumadin. H/O Diastolic heart failure H/O Prostate cancer treated with brachytherapy and radiation Marked cachexia Hypertension Thrombocytopenia Conservative cardiac management. 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 Subjective Date of service: 09/20/18 Interval history: Patient reports he is feeling better. He denies chest pain. Noted a significant drop in platelets, from 134,000 on yesterday to 61,000 today. Objective Vital Signs Temp Pulse Pulse Resp BP Pulse Ox 09/20/18 08:28 99 09/20/18 08:27 99.4 F 89 20 149/84 97 09/20/18 05:31 61 147/74 09/20/18 05:29 97.5 F L 59 L 16 147/74 93 09/19/18 23:30 98.4 F 60 18 171/82 97 09/19/18 22:07 70 159/91 09/19/18 22:00 70 20 97 09/19/18 21:43 64 18 156/91 97 09/19/18 19:10 51 L 09/19/18 15:43 59 L 168/86 98 - Physical Examination General: No Apparent Distress HEENT: Positive: PERRL Cardiac: Positive: irregularly irregular, Systolic Murmur Lungs: Positive: Decreased Breath Sounds Neuro: Positive: Grossly Intact - Labs and Meds Coagulation 09/20/18 Range/Units 07:19 PT 20.6 H (12.2-14.9) Sec. INR 1.72 H (0.87-1.13)
--- NOTE | 2018-09-20 15:02 | Discharge Summary ---
Providers - Providers Date of Admission: 09/18/18 19:14 Date of discharge: 09/20/18 Attending physician: DEANGELO VINCENT 09/18/18 Consult to Cardiac Rehabilitation [CONS] Routine Reason For Exam: Phase I 09/18/18 17:42 Consult to Physician [CONS] Routine Comment: Consulting Provider: ERIN PLASCENCIA Physician Instructions: Reason For Exam: Chest Pain, Elevated Troponin 09/18/18 19:16 Consult to Physician [CONS] Routine Comment: Consulting Provider: AUNG ALAMO Physician Instructions: Reason For Exam: renal failure Primary care physician: DOROTHEA ADAMES Hospitalization Condition: Stable Hospital course: Patient is a 67 yo man with a history of HTN, Atrial Fib on Therapeutic Anticoagulation, CKD S/P Renal Transplant on Graft Rejection Therapy, Malnutrition presents to ED for evaluation of sudden onset of pain in his neck that radiated down into his chest. Pt transported to [facility] for further care and evaluation by his . Pt seen and evaluated in ED and found to have chest pain, Pt admitted to telemetry. Cardiology team and Nephrology team consulted in ED. Chest pain, msk, costochondritis suspected, Cardiology evaluated HTN (hypertension), poorly controlled, monitor bp q shift, resume home meds Chronic Diastolic CHF, not acute Kidney transplant recipient, Nephrology consulted in ED, continue prehospital medication. CKD 3/4, with h/o renal transplant,at baseline Valvular heart disease, moderate AI by echo 11/2017. Mild AI with severe LA dilatation. Normal EF 55% by echo 05/2018. Atrial fibrillation, persistent, on anticoagulation with Coumadin. H/O Diastolic heart failure H/O Prostate cancer treated with brachytherapy and radiation Thrombocytopenia Neck pain; osteoarthritis, nothing acute on CT neck Disposition: DC-01 TO HOME OR SELFCARE Time spent for discharge: 33 minutes Core Measure Documentation - Palliative Care Palliative Care/ Comfort Measures: Not Applicable - Core Measures Any of the following diagnoses?: none - VTE Discharge Requirements Deep Vein Thrombosis/Pulmonary Embolism Present on Admission: No Has pt received <5 days of overlap therapy or INR<2.0: No Anticoagulant overlap therapy prescribed at discharge: No Contraindication No Overlap Therapy order at DC: Not Indicated Exam - Physical Exam Narrative exam: Hospitalist Physical exam: GENERAL: well-developed and well-nourished lying on bed appeared to be in no discomfort. HEENT: Normocephalic. Atraumatic. No conjunctival congestion or icterus. Patient has moist mucous membranes. NECK: Supple. Trachea midline. CHEST/LUNGS: Clear to auscultated bilaterally, breathing nonlabored. No wheezes crackles or rhonchi. HEART/CARDIOVASCULAR: Regular in rate and rhythm. S1 and S2 positive. ABDOMEN: Abdomen is soft, nontender. Patient has normal bowel sounds. SKIN: There is no rash. Warm and dry. NEURO: No focal motor deficit. Follows command. MUSCULOSKELETAL: No joint effusion or tenderness. EXTRIMITY: No edema, no cyanosis or clubbing. PSYCH: Cooperative. - Constitutional Vitals: Temp Pulse Resp BP Pulse Ox 99.4 F 85 20 149/84 99 09/20/18 08:27 09/20/18 10:00 09/20/18 08:27 09/20/18 08:27 09/20/18 08:28 Plan Activity: other (no strenous activity unless cleared by Cardiology) Diet: low salt, diabetic Follow up with: DOROTHEA ADAMES [Primary Care Provider] - 7 Days ERIN PLASCENCIA MD [Staff Physician] - 3 Days Forms: Warfarin Discharge Instruction
[2018-09-20 15:30] VITALS: BP 147/81
== END 2018-09-20 20:40 | disposition home or self-care (01) | DRG 205 ==
LOC: ED 14:52 → 4A 19:14
PROVIDERS: ADMIT Internal Medicine; ATTEND Internal Medicine
DX: M94.0 Chondrocostal junction syndrome [Tietze] (principal); N17.0 Acute kidney failure with tubular necrosis; Z94.0 Kidney transplant status; I50.32 Chronic diastolic (congestive) heart failure; I13.0 Hypertensive heart and chronic kidney disease with heart failure and stage 1 through stage 4 chronic kidney disease, or unspecified chronic kidney disease; I48.1 Persistent atrial fibrillation; E46 Unspecified protein-calorie malnutrition; I42.9 Cardiomyopathy, unspecified; E87.2 Acidosis; I38 Endocarditis, valve unspecified; R64 Cachexia; N25.81 Secondary hyperparathyroidism of renal origin; N18.4 Chronic kidney disease, stage 4 (severe); E83.52 Hypercalcemia; R07.89 Other chest pain; M19.91 Primary osteoarthritis, unspecified site; D63.1 Anemia in chronic kidney disease; Z85.46 Personal history of malignant neoplasm of prostate; D69.6 Thrombocytopenia, unspecified; Z68.20 Body mass index [BMI] 20.0-20.9, adult; Z82.49 Family history of ischemic heart disease and other diseases of the circulatory system
CPT/HCPCS: 36415; 71046; 72125; 80048; 80053; 80061; 84484; 85025; 85027; 85379; 85610; 85730; 87116; 93005; 93010; G0378; A9270-GY; J0360; J7507; J7512; J7517

== ENCOUNTER 2019-04-05 12:19 | Inpatient (IN) | payer MEDICARE ==
--- NOTE | 2019-04-05 12:31 | Event Note ---
ED Screening Note Date of service: 04/05/19 Time: 12:30 ED Screening Note: was sent by PCP for abnormal labs bilateral kidney transplant This initial assessment/diagnostic orders/clinical plan/treatment(s) is/are subject to change based on patients health status, clinical progression and re-assessment by fellow clinical providers in the ED. Further treatment and workup at subsequent clinical providers discretion. Patient/guardian urged not to elope from the ED as their condition may be serious if not clinically assessed and managed. Initial orders include: labs ordered
[2019-04-05 14:02] LABS: Basophils # (Auto) 0.1 K/mm3 (0.0-0.1); Eosinophils % (Auto) 0.2 % (0.0-4.3); Hematocrit 28.7 % (35.5-45.6); Hemoglobin 9.2 gm/dl (11.8-15.2); Lymphocytes # (Auto) 0.3 K/mm3 (1.2-5.4); Lymphocytes % (Auto) 3.5 % (13.4-35.0); Mean Corpuscular HGB Conc 32 % (32-34); Mean Corpuscular Volume 90 fl (84-94); Monocytes # (Auto) 0.6 K/mm3 (0.0-0.8); Monocytes % (Auto) 7.4 % (0.0-7.3); Platelet Count 182 K/mm3 (140-440); Red Blood Count 3.18 M/mm3 (3.65-5.03); Red Cell Distribution Width 16.9 % (13.2-15.2)
[2019-04-05 14:13] LABS: Calcium 11.4 mg/dL (8.4-10.2)
[2019-04-05] MEDS ORDERED: NACL 0.9% 500 ML 500 ML IV ONE (14:57)
--- NOTE | 2019-04-05 14:59 | Emergency Department Report ---
ED General Adult HPI - General Chief complaint: Recheck/Abnormal Lab/Rx Stated complaint: ABNORMAL LAB WORK/KIDNEY Time Seen by Provider: 04/05/19 12:29 Source: RN notes reviewed, old records reviewed Mode of arrival: Wheelchair Limitations: Altered Mental Status, Physical Limitation - History of Present Illness Initial comments: This is a 68-year-old gentleman. This patient is not known to this provider previously. History obtained from old medical records and from nursing documentation. Past medical records/history include hypertension, A. fib on anticoagulation, renal insufficiency, status post renal transplant, in the past has been on graft rejection therapy, uncertain if on antirejection meds at this time, malnutrition, left upper extremity fistula Patient reportedly sent to the ER for evaluation of worsening renal insufficiency as per primary care doctor. However, the patient is altered. He cannot tell me why he is here. He cannot answer whether or not he is having any pain. He does not know what medications he is taking. We have attempted to contact the patient's or collateral information, and left a voicemail for call back, as nobody has answered. In the emergency room, the patient is sleepy but arousable, moving 4 extremities and protecting his airway. No additional history is available at this time. -: unknown Radiation: other Quality: other Consistency: other Improves with: other Worsens with: other Associated Symptoms: other - Related Data Home Medications Medication Instructions Recorded Confirmed Last Taken Captopril (Nf) [Capoten (Nf)] 25 mg PO BID 05/25/18 09/18/18 Unknown Cinacalcet HCl [Sensipar] 90 mg PO HS 05/25/18 09/18/18 Unknown Furosemide [Lasix TAB] 80 mg PO QDAY 05/25/18 09/18/18 Unknown Hydralazine HCl 50 mg PO Q8H 05/25/18 09/18/18 Unknown Mycophenolate [Cellcept] 250 mg PO BID 05/25/18 09/18/18 Unknown NIFEdipine [Nifedipine ER] 60 mg PO BID 05/25/18 09/18/18 Unknown Pantoprazole [Protonix TAB] 40 mg PO QDAY 05/25/18 09/18/18 Unknown Potassium Chloride [Klor-Con] 20 meq PO BID 05/25/18 09/18/18 Unknown Tacrolimus [Prograf] 1 mg PO Q12H 05/25/18 09/18/18 Unknown Warfarin [Coumadin] 7.5 mg PO QDAY 05/25/18 09/18/18 Unknown predniSONE [Prednisone] 5 mg PO DAILY 05/25/18 09/18/18 Unknown Docusate Sodium [Colace CAP] 100 mg PO DAILY 09/18/18 09/18/18 Unknown Multivitamin [Multiple Vitamins] 1 tab PO DAILY 09/18/18 09/18/18 Unknown Allergies Allergy/AdvReac Type Severity Reaction Status Date / Time iodine Allergy Hives Verified 09/18/18 15:29 IVP DYE Allergy Hives Uncoded 08/31/13 09:00 ED Review of Systems ROS: Stated complaint: ABNORMAL LAB WORK/KIDNEY Other details as noted in HPI Comment: Unobtainable due to pts medical conditions ED Past Medical Hx - Past Medical History Hx Hypertension: Yes Hx Heart Attack/AMI: No Hx Congestive Heart Failure: Yes Hx Deep Vein Thrombosis: No Hx Renal Disease: No Hx Kidney Stones: No Additional medical history: afib,PULMONARY EDEMA,ESRD - Surgical History Hx Coronary Stent: No Hx Pacemaker: No Hx Internal Defibrillator: No Additional Surgical History: TRANSPLANT - Social History Smoking Status: Never Smoker Substance Use Type: None - Medications Home Medications: Home Medications Medication Instructions Recorded Confirmed Last Taken Type Captopril (Nf) [Capoten (Nf)] 25 mg PO BID 05/25/18 09/18/18 Unknown History Cinacalcet HCl [Sensipar] 90 mg PO HS 05/25/18 09/18/18 Unknown History Furosemide [Lasix TAB] 80 mg PO QDAY 05/25/18 09/18/18 Unknown History Hydralazine HCl 50 mg PO Q8H 05/25/18 09/18/18 Unknown History Mycophenolate [Cellcept] 250 mg PO BID 05/25/18 09/18/18 Unknown History NIFEdipine [Nifedipine ER] 60 mg PO BID 05/25/18 09/18/18 Unknown History Pantoprazole [Protonix TAB] 40 mg PO QDAY 05/25/18 09/18/18 Unknown History Potassium Chloride [Klor-Con] 20 meq PO BID 05/25/18 09/18/18 Unknown History Tacrolimus [Prograf] 1 mg PO Q12H 05/25/18 09/18/18 Unknown History Warfarin [Coumadin] 7.5 mg PO QDAY 05/25/18 09/18/18 Unknown History predniSONE [Prednisone] 5 mg PO DAILY 05/25/18 09/18/18 Unknown History Docusate Sodium [Colace CAP] 100 mg PO DAILY 09/18/18 09/18/18 Unknown History Multivitamin [Multiple Vitamins] 1 tab PO DAILY 09/18/18 09/18/18 Unknown History ED Physical Exam - General Limitations: Altered Mental Status General appearance: lethargic - Head Head exam: Present: atraumatic, normocephalic - Eye Eye exam: Present: normal appearance, PERRL, EOMI - ENT ENT exam: Present: normal exam, normal orophraynx, mucous membranes moist, normal external ear exam - Neck Neck exam: Present: normal inspection. Absent: tenderness, meningismus - Respiratory Respiratory exam: Present: decreased breath sounds. Absent: respiratory distress, wheezes, rales, rhonchi, stridor - Cardiovascular Cardiovascular Exam: Present: regular rate, irregular rhythm, normal heart sounds. Absent: bradycardia, tachycardia, systolic murmur, diastolic murmur, r ubs, gallop - GI/Abdominal GI/Abdominal exam: Present: soft. Absent: distended, tenderness, guarding, rebound, rigid, pulsatile mass - Rectal Rectal exam: Present: normal inspection, normal rectal tone, heme (-) stool, ot her (chaperoned by manolo Jiménez). Absent: heme (+) stool, black stool, bloody stool - Extremities Exam Extremities exam: Present: normal inspection (left upper extremity fistula, noted, with no redness, pus or streaking), pedal edema, other (2+ pulses noted in the bilateral upper, lower extremities. Compartments soft. No long bony tenderness. The pelvis is stable.). Absent: tenderness, calf tenderness - Back Exam Back exam: Absent: tenderness, CVA tenderness (R), CVA tenderness (L), paraspinal tenderness, vertebral tenderness - Neurological Exam Neurological exam: Present: altered, other (patient groans when he is examined. Occasionally moves 4 extremities. There is no facial droop. A detailed neurologic examination is not possible secondary to altered mental status) - Skin Skin exam: Present: warm ED Course Vital Signs 04/05/19 04/05/19 04/05/19 12:28 14:08 16:04 Temperature 98.1 F 97.5 F L Pulse Rate 78 60 70 Respiratory 22 16 16 Rate Blood Pressure 147/60 Blood Pressure 176/83 164/59 [Right] O2 Sat by Pulse 93 96 100 Oximetry 04/05/19 04/05/19 17:22 18:27 Temperature 98 F Pulse Rate 64 76 Respiratory 16 16 Rate Blood Pressure Blood Pressure 152/92 178/82 [Right] O2 Sat by Pulse 98 98 Oximetry - Reevaluation(s) Reevaluation #1: 04/05/19 16:10 Differential diagnosis, including but not limited to: Intracranial hemorrhage, intra-abdominal hemorrhage, pneumonia, urinary tract infection, acute on chronic renal insufficiency, toxic encephalopathy, metabolic encephalopathy, multifocal encephalopathy Assessment and plan: 68-year-old gentleman, with evidence of worsening renal insufficiency, today, creatinine is 2.1, also found to have pulmonary vascular congestion and lower extremity edema, without documented fever. Hemoglobin, hematocrit lower than when compared to prior values. The patient is guaiac negative. No additional collateral information is available at this time. We have consulted nephrology, Dr. Irene, and her group will follow in cons ultation. CT scan of the brain, abdomen and pelvis pending at this time. Patient guaiac-negative on rectal exam. Additional laboratory studies ordered. Patient appears to be volume overloaded, therefore, we will withhold fluids at this time. We will discuss diuretics with nephrology. Plan to admit once initial diagnostics have resulted. Reevaluation #2: 04/05/19 18:[address] Yang to admit Reevaluation #3: 04/05/19 18:31 ct abd pelvis negative for acute disease ED Medical Decision Making - Lab Data Result diagrams: 04/05/19 13:40 04/05/19 13:40 Vital Signs 04/05/19 04/05/19 12:28 14:08 Temperature 98.1 F Pulse Rate 78 60 Respiratory 22 16 Rate Blood Pressure 147/60 Blood Pressure 176/83 [Right] O2 Sat by Pulse 93 96 Oximetry Temp Pulse Resp BP Pulse Ox 98.1 F 60 16 176/83 96 04/05/19 12:28 04/05/19 14:08 04/05/19 14:08 04/05/19 14:08 04/05/19 14:08 Lab Results 08/28/19 08/28/19 08/28/19 Range/Units 13:40 13:40 15:20 WBC 8.4 (4.5-11.0) K/mm3 RBC 3.18 L (3.65-5.03) M/mm3 Hgb 9.2 L (11.8-15.2) gm/dl Hct 28.7 L (35.5-45.6) % MCV 90 (84-94) fl MCH 29 (28-32) pg MCHC 32 (32-34) % RDW 16.9 H (13.2-15.2) % Plt Count 182 (140-440) K/mm3 Lymph % (Auto) 3.5 L (13.4-35.0) % [place] % (Auto) 7.4 H (0.0-7.3) % Eos % (Auto) 0.2 (0.0-4.3) % Baso % (Auto) 1.0 (0.0-1.8) % Lymph # 0.3 L (1.2-5.4) K/mm3 [place] # 0.6 (0.0-0.8) K/mm3 Eos # 0.0 (0.0-0.4) K/mm3 Baso # 0.1 (0.0-0.1) K/mm3 Seg Neutrophils % 87.9 H (40.0-70.0) % Seg Neutrophils # 7.3 (1.8-7.7) K/mm3 PT 30.7 H (12.2-14.9) Sec. INR 3.01 H (0.87-1.13) Sodium 142 (137-145) mmol/L Potassium 3.8 (3.6-5.0) mmol/L Chloride 101.2 (98-107) mmol/L Carbon Dioxide 24 (22-30) mmol/L Anion Gap 21 mmol/L BUN 76 H (9-20) mg/dL Creatinine 4.1 H (0.8-1.5) mg/dL Estimated GFR 18 ml/min BUN/Creatinine Ratio 19 % Glucose 118 H (75-100) mg/dL Calcium 11.4 H (8.4-10.2) mg/dL - EKG Data -: EKG Interpreted by [facility] - EKG Data 04/05/19 16:33 This is atrial fibrillation, slow ventricular rate, 66 bpm, motion artifact, QTC 444 ms, no endorsement of chest pain, the EKG is abnormal, the EKG is not cons istent with ST elevation myocardial infarction - Radiology Data Radiology results: report reviewed, image reviewed Print Report Referring Physician: NEDA JOHNS Patient Name: SARAH THORNE Date of : 1950 Sex: Male Report Date: 2019-04-05 Report Status: Finalized Findings [facility] [address] [place] [address] XRay Report Signed Patient: SARAH THORNE MR#: [id number] : 1950 Acct:[id number] Age/Sex: 68 / M ADM Date: 04/05/19 Loc: ED Attending Dr: Ordering Physician: NEDA JOHNS MD Date of Service: 04/05/19 Procedure(s): XR chest 1V ap Accession Number(s): [id number] cc: NEDA JOHNS MD Fluoro Time In Minutes: CHEST 1 VIEW 04/05/2019 3:00 PM INDICATION / CLINICAL INFORMATION: Altered mental status. COMPARISON: 2 views of the chest from 09/18/2018. FINDINGS: SUPPORT DEVICES: None. HEART / MEDIASTINUM: Stable cardiomegaly and central vascular congestion. The right brachycephalic vein stent is unchanged. LUNGS / PLEURA: Generalized interstitial prominence is nonspecific. A small left pleural effusion is again seen. No pneumothorax is seen. ADDITIONAL FINDINGS: No significant additional findings. IMPRESSION: 1. No acute abnormality of the chest. 2. Additional stable findings as above. Signer Name: Pako Patricia MD Signed: 04/05/2019 3:22 PM Workstation Name: [id number] Transcribed By: ISIDRA Dictated By: Pako Patricia MD Electronically Authenticated By: Pako Patricia MD Signed Date/Time: 04/05/19 1522 COMPARISON: 01/14/2015 FINDINGS: There is a small right pleural effusion. Soft tissue contrast is poor due to lack of intra-abdominal fat. Small low-density liver lesions are probably cysts and appear unchanged. The spleen, pancreas and adrenal glands are grossly normal. There are atrophic, cystic kidneys consistent with chronic renal failure with renal calculi and calcifications seen as well. There is moderate vascular calcification without aneurysm. No gross gallbladder or biliary tree abnormality. No fluid or adenopathy in the upper abdomen. CT of the pelvis shows an apparent right iliac fossa renal transplant. Penile prosthesis is seen with reservoir in the left pelvis and brachytherapy seeds in the prostate. There is generalized soft tissue edema. There is no definite bowel obstruction or inflammatory process. In particular there is no intraperitoneal or retroperitoneal hemorrhage. IMPRESSION: No definite acute abnormality. Automated exposure control was utilized to diminish radiation dose. Signer Name: Keegan Johnson MD Signed: 04/05/2019 6:05 PM Workstation Name: [id number] Transcribed By: MAGGIE Dictated By: Keegan Johnson MD Electronically Au thenticated By: Keegan Johnson MD Signed Date/Time: 04/05/[address] head negative for acute findings Critical care attestation.: If time is entered above; I have spent that time in minutes in the direct care of this critically ill patient, excluding procedure time. ED Disposition Clinical Impression: Acute on chronic renal failure, Encephalopathy acute Disposition: DC-09 OP ADMIT IP TO THIS HOSP Is pt being admited?: Yes Condition: Fair Referrals: MADHU FLOYD MD [Primary Care Provider] - 3-5 Days
--- NOTE | 2019-04-05 15:27 | XRay Report ---
CHEST 1 VIEW 04/05/2019 3:00 PM INDICATION / CLINICAL INFORMATION: Altered mental status. COMPARISON: 2 views of the chest from 09/18/2018. FINDINGS: SUPPORT DEVICES: None. HEART / MEDIASTINUM: Stable cardiomegaly and central vascular congestion. The right brachycephalic ve in stent is unchanged. LUNGS / PLEURA: Generalized interstitial prominence is nonspecific. A small left pleural effusion is again seen. No pneumothorax is seen. ADDITIONAL FINDINGS: No significant additional findings. IMPRESSION: 1. No acute abnormality of the chest. 2. Additional stable findings as above. Signer Name: Pako Patricia MD Signed: 04/05/2019 3:22 PM Workstation Name: [id number]
[2019-04-05 15:56] LABS: INR 3.01 (0.87-1.13)
[2019-04-05 16:00] LABS: Partial Thromboplastin Time 65.1 Sec. (24.2-36.6)
--- NOTE | 2019-04-05 16:27 | Consultation ---
History of Present Illness - Reason for Consult acute renal failure - History of Present Illness 68-year-old gentleman with medical history significant for hypertension,congestive heart failure , Previous ESRD with Left arm AVF follows at [facility] follows with Dr. dial, Kidney transplant january 2015 now with worsening renal function , per office records creatinine was 3. 8 on 03/14 , creatinine was 2. 49, 05/2018 , creatinine was 3.11 on December 01 2018 . he admits to edema , denies any PND symptoms , denies any NSAID use , denies any dysuria or hematuria. He was thought to be confused in the emergency room. However was able to provide some history for me His medications include : Tacrolimus 1mg q 12hrs Cellcept 500mg 3 tabs bid Prednisone 5mg daily pantoprazole 40mg qd, sensipar 90mg warfarin 7.5mg qd potassium 20meq qd torsemide 40mg daily nifedipine 60mg daily Medications and Allergies Allergies Allergy/AdvReac Type Severity Reaction Status Date / Time iodine Allergy Hives Verified 09/18/18 15:29 IVP DYE Allergy Hives Uncoded 08/31/13 09:00 Home Medications Medication Instructions Recorded Confirmed Last Taken Type Captopril (Nf) [Capoten (Nf)] 25 mg PO BID 05/25/18 09/18/18 Unknown History Cinacalcet HCl [Sensipar] 90 mg PO HS 05/25/18 09/18/18 Unknown History Furosemide [Lasix TAB] 80 mg PO QDAY 05/25/18 09/18/18 Unknown History Hydralazine HCl 50 mg PO Q8H 05/25/18 09/18/18 Unknown History Mycophenolate [Cellcept] 250 mg PO BID 05/25/18 09/18/18 Unknown History NIFEdipine [Nifedipine ER] 60 mg PO BID 05/25/18 09/18/18 Unknown History Pantoprazole [Protonix TAB] 40 mg PO QDAY 05/25/18 09/18/18 Unknown History Potassium Chloride [Klor-Con] 20 meq PO BID 05/25/18 09/18/18 Unknown History Tacrolimus [Prograf] 1 mg PO Q12H 05/25/18 09/18/18 Unknown History Warfarin [Coumadin] 7.5 mg PO QDAY 05/25/18 09/18/18 Unknown History predniSONE [Prednisone] 5 mg PO DAILY 05/25/18 09/18/18 Unknown History Docusate Sodium [Colace CAP] 100 mg PO DAILY 09/18/18 09/18/18 Unknown History Multivitamin [Multiple Vitamins] 1 tab PO DAILY 09/18/18 09/18/18 Unknown History Review of Systems Constitutional: weight gain, no fever, no chills Ears, nose, mouth and throat: no ear pain, no ear discharge Cardiovascular: edema, no chest pain, no orthopnea, no palpitations, no shortness of breath Respiratory: no cough Gastrointestinal: no abdominal pain, no nausea, no vomiting Genitourinary Male: no dysuria, no hematuria Musculoskeletal: no neck stiffness, no neck pain Integumentary: no deferred, no rash, no blisters Neurological: no head injury, no transient paralysis Psychiatric: no anxiety, no memory loss Endocrine: no cold intolerance, no heat intolerance Hematologic/Lymphatic: no easy bruising, no easy bleeding Exam - Vital Signs Vital signs: Vital Signs Temp Pulse Resp BP Pulse Ox 98.1 F 78 22 147/60 93 04/05/19 12:28 04/05/19 12:28 04/05/19 12:28 04/05/19 12:28 04/05/19 12:28 - General Appearance General appearance: well-developed, well-nourished EENT: ATNC, PERRL Neck: Present: neck supple Respiratory: Clear to Ascultation Heart: regular, S1S2 Gastrointestinal: Present: normal, normoactive bowel sounds Integumentary: no rash Neurologic: alert and oriented x3, CN 3-12 intact Psychiatric: mood/affect appropriate Results - Lab Results 04/05/19 13:40 04/05/19 13:40 Most recent lab results Calcium 11.4 mg/dL (8.4-10.2) H 04/05/19 13:40 Magnesium 2.20 mg/dL (1.7-2.3) 04/05/19 15:20 - Image Kidney/bladder ultrasound: other (I reviewed chest x-ray with patchy opacities and perihilar opacity consistent with edema. ) Assessment and Plan - Patient Problems (1) Acute on chronic renal failure Current Visit: Yes Status: Acute Plan to address problem: Acute on chronic renal failure Creatinine has been worsening over the past year Apparently creatinine was 2.5 in May 2018 and then worsened to 3.1 in Amry of this year subsequently 3.8 early this month Obtain urinalysis Obtain renal ultrasound Obtain serologies We'll start diuretics Bumex 1 mg daily Strict input and output Check tacrolimus level (2) CHF (congestive heart failure) Current Visit: No Status: Acute Qualifiers: Heart failure type: diastolic Heart failure chronicity: chronic Qualified Code(s): I50.32 - Chronic diastolic (congestive) heart failure Plan to address problem: Congestive heart failure Chest x-ray with evidence of pulmonary congestion does have ankle edema. We'll starts Bumex 1 mg daily for now Low-salt diet Obtain echocardiogram (3) Renal transplant failure and rejection Current Visit: Yes Status: Acute Plan to address problem: Renal transplant failure Unclear if there is evidence of rejection Also unclear if the kidney has been biopsy in the past by transplant nephrology We'll need to discuss with patient's primary transplant [facility] possible nephrosclerosis versus rejection We'll need to determine if he needs to be transferred to [place] for further measures and treatment of a transplant versus dialysis if his renal function worsens Check tacrolimus level (4) HTN (hypertension) Current Visit: Yes Status: Acute Plan to address problem: Hypertension uncontrolled Resume home medications list obtained from clinic
[2019-04-05] MEDS ORDERED: BUMEX IV ONE (16:48)
[2019-04-05] MEDS ORDERED: PROCARDIA XL PO ONE (17:00)
--- NOTE | 2019-04-05 17:34 | Cat Scan Report ---
CT of the head without contrast INDICATION: Acute altered mental status.. TECHNIQUE: Routine CT head without contrast. All CT scans at this location are performed using CT dos e reduction for ALARA by means of automated exposure control. COMPARISON: None. FINDINGS: BRAIN / INTRACRANIAL CONTENTS: No acute hemorrhage, mass effect, midline shift, or hydrocephalus. No appreciable acute large territorial or lacunar infarct. There is a tiny chronic-appearing lacune in t he left thalamus. There are moderate areas of hypoattenuation in the white matter of the cerebral hem ispheres. Given the location and appearance, these most likely reflect chronic microvascular angiopat hic change. These are considered to be advanced (even for the patient's age) and probably indicate ch ronic hypertension, diabetes, and/or chronic kidney disease. This also appears to be resulting in kristine tral volume loss with ex vacuo dilation of the ventricular system. ORBITS: Glaucoma reservoir present in the left orbit. SINUSES / MASTOIDS: There is nonaggressive fluid partially opacifying the right mastoid and right mid dle ear with under aeration of the right mastoid, likely developmental. ADDITIONAL FINDINGS: None. IMPRESSION: 1. No acute hemorrhage or other acute intracranial abnormality. 2. Moderate cerebral white matter hypoattenuation with pattern most suggestive of chronic microvascul ar angiopathic change. 3. Chronic appearing lacunar infarct in the left thalamus. Signer Name: Jim Cruz MD Signed: 04/05/2019 5:29 PM Workstation Name: [id number]
--- NOTE | 2019-04-05 18:10 | Cat Scan Report ---
CT of the abdomen and pelvis without contrast INDICATION: Abdominal pain, bleeding COMPARISON: 01/14/2015 FINDINGS: There is a small right pleural effusion. Soft tissue contrast is poor due to lack of intra- abdominal fat. Small low-density liver lesions are probably cysts and appear unchanged. The spleen, p ancreas and adrenal glands are grossly normal. There are atrophic, cystic kidneys consistent with chr onic renal failure with renal calculi and calcifications seen as well. There is moderate vascular nico cification without aneurysm. No gross gallbladder or biliary tree abnormality. No fluid or adenopathy in the upper abdomen. CT of the pelvis shows an apparent right iliac fossa renal transplant. Penile prosthesis is seen with reservoir in the left pelvis and brachytherapy seeds in the prostate. There is generalized soft tiss ue edema. There is no definite bowel obstruction or inflammatory process. In particular there is no i ntraperitoneal or retroperitoneal hemorrhage. IMPRESSION: No definite acute abnormality. Automated exposure control was utilized to diminish radiation dose. Signer Name: Keegan Johnson MD Signed: 04/05/2019 6:05 PM Workstation Name: [id number]
[2019-04-05 20:36] LABS: Bilirubin,Urine Negative (Negative); Blood,Urine Small (Negative); Color,Urine Yellow (Yellow)
[2019-04-05 20:37] LABS: Mucus,Urine Few /HPF; Urobilinogen,Urine < 2.0 mg/dL (<2.0)
--- NOTE | 2019-04-05 20:47 | Ultrasound Report ---
] Renal transplant ultrasound INDICATION: Renal failure FINDINGS: The renal transplant measures 9 cm in length. It shows good cortical thickness of normal ec hogenicity. No cystic or solid renal masses. There is no hydronephrosis or obstruction. There is good arterial flow to the right kidney with no definite evidence for renal artery occlusion. The [facility] r ight kidney measures 6.9 cm in length and may be hydronephrotic. Signer Name: Keegan Johnson MD Signed: 04/05/2019 8:42 PM Workstation Name: [id number]
[2019-04-05] MEDS ORDERED: CELLCEPT PO SCH (22:00)
[2019-04-05] MEDS ORDERED: CAPTOPRIL 25 MG PO SCH (22:30)
[2019-04-05] MEDS ORDERED: TYLENOL PO PRN (22:38)
[2019-04-05] MEDS ORDERED: DILAUDID IV PRN (22:38)
[2019-04-05] MEDS ORDERED: SODIUM CHLORIDE FLUSH SYRINGE 10 ML IV PRN (22:38)
[2019-04-05] MEDS ORDERED: REGLAN IV PRN (22:38)
[2019-04-05] MEDS ORDERED: ZOFRAN IV PRN (22:38)
[2019-04-05] MEDS ORDERED: PROGRAF PO SCH (23:00)
[2019-04-05] MEDS ORDERED: NACL 0.9% 1000 ML 1,000 ML IV SCH (23:00)
[2019-04-06] MEDS: CELLCEPT PO SCH ×2 (04:25→10:05)
[2019-04-06] MEDS: PROCARDIA XL PO SCH ×3 (04:26→16:52)
[2019-04-06] MEDS: PROGRAF PO SCH ×3 (04:26→19:00)
[2019-04-06] MEDS: POTASSIUM CHLORIDE PO SCH ×2 (04:27→10:05)
[2019-04-06] MEDS: APRESOLINE PO SCH ×3 (04:38→12:51)
[2019-04-06 05:22] LABS: Basophils # (Auto) 0.1 K/mm3 (0.0-0.1); Basophils % (Auto) 1.3 % (0.0-1.8); Eosinophils % (Auto) 0.3 % (0.0-4.3); Hemoglobin 7.9 gm/dl (11.8-15.2); Lymphocytes # (Auto) 0.3 K/mm3 (1.2-5.4); Mean Corpuscular HGB Conc 32 % (32-34); Mean Corpuscular Volume 91 fl (84-94); Monocytes # (Auto) 0.6 K/mm3 (0.0-0.8); Monocytes % (Auto) 6.3 % (0.0-7.3); Platelet Count 206 K/mm3 (140-440); Red Blood Count 2.73 M/mm3 (3.65-5.03); Red Cell Distribution Width 16.7 % (13.2-15.2)
[2019-04-06 05:35] LABS: Albumin 2.9 g/dL (3.9-5); Calcium 11.6 mg/dL (8.4-10.2)
--- NOTE | 2019-04-06 07:47 | History and Physical Report ---
History of Present Illness Date of examination: 04/05/19 Date of admission: 04/05/19 18:06 Chief complaint: Worsening renal function per PCP History of present illness: 68-year-old AAM with pmh of hypertension, A. fib on anticoagulation, renal insufficiency, status post renal transplant, in the past has been on graft rejection therapy, uncertain if on antirejection meds at this time, malnutrition, left upper extremity fistula presents to ED for evaluation of wo rsening renal insufficiency as per primary care doctor. However, the patient is altered. He cannot tell why he is here. He cannot answer whether or not he is having any pain. He does not know what medications he is taking. We have attempted to contact the patient's or collateral information, and left a voicemail for call back, as nobody has answered. In the emergency room, the patient is sleepy but arousable, moving 4 extremities and protecting his airway. No additional history is available at this time. Past Medical History Hypertension: Yes Congestive Heart Failure: Yes Additional medical history: A fib PULMONARY EDEMA ESRD Surgical History Additional Surgical History:Renal TRANSPLANT Social History Smoking Status: Never Smoker Substance Use Type: None Family History Htn Medications Home Medications: Home Medications Medication Instructions Recorded Confirmed Last Taken Type Captopril (Nf) [Capoten (Nf)] 25 mg PO BID 05/25/18 09/18/18 Unknown History Cinacalcet HCl [Sensipar] 90 mg PO HS 05/25/18 09/18/18 Unknown History Furosemide [Lasix TAB] 80 mg PO QDAY 05/25/18 09/18/18 Unknown History Hydralazine HCl 50 mg PO Q8H 05/25/18 09/18/18 Unknown History Mycophenolate [Cellcept] 250 mg PO BID 05/25/18 09/18/18 Unknown History NIFEdipine [Nifedipine ER] 60 mg PO BID 05/25/18 09/18/18 Unknown History Pantoprazole [Protonix TAB] 40 mg PO QDAY 05/25/18 09/18/18 Unknown History Potassium Chloride [Klor-Con] 20 meq PO BID 05/25/18 09/18/18 Unknown History Tacrolimus [Prograf] 1 mg PO Q12H 05/25/18 09/18/18 Unknown History Warfarin [Coumadin] 7.5 mg PO QDAY 05/25/18 09/18/18 Unknown History predniSONE [Prednisone] 5 mg PO DAILY 05/25/18 09/18/18 Unknown History Docusate Sodium [Colace CAP] 100 mg PO DAILY 09/18/18 09/18/18 Unknown History Multivitamin [Multiple Vitamins] 1 tab PO DAILY 09/18/18 09/18/18 Unknown History Review of Systems ROS: Stated complaint: ABNORMAL LAB WORK/KIDNEY Other details as noted in HPI Comment: Unobtainable due to pts medical conditions Medications and Allergies Allergies Allergy/AdvReac Type Severity Reaction Status Date / Time iodine Allergy Hives Verified 09/18/18 15:29 IVP DYE Allergy Hives Uncoded 08/31/13 09:00 Home Medications Medication Instructions Recorded Confirmed Last Taken Type Captopril (Nf) [Capoten (Nf)] 25 mg PO BID 05/25/18 09/18/18 Unknown History Cinacalcet HCl [Sensipar] 90 mg PO HS 05/25/18 09/18/18 Unknown History Furosemide [Lasix TAB] 80 mg PO QDAY 05/25/18 09/18/18 Unknown History Hydralazine HCl 50 mg PO Q8H 05/25/18 09/18/18 Unknown History Mycophenolate [Cellcept] 250 mg PO BID 05/25/18 09/18/18 Unknown History NIFEdipine [Nifedipine ER] 60 mg PO BID 05/25/18 09/18/18 Unknown History Pantoprazole [Protonix TAB] 40 mg PO QDAY 05/25/18 09/18/18 Unknown History Potassium Chloride [Klor-Con] 20 meq PO BID 05/25/18 09/18/18 Unknown History Tacrolimus [Prograf] 1 mg PO Q12H 05/25/18 09/18/18 Unknown History Warfarin [Coumadin] 7.5 mg PO QDAY 05/25/18 09/18/18 Unknown History predniSONE [Prednisone] 5 mg PO DAILY 05/25/18 09/18/18 Unknown History Docusate Sodium [Colace CAP] 100 mg PO DAILY 09/18/18 09/18/18 Unknown History Multivitamin [Multiple Vitamins] 1 tab PO DAILY 09/18/18 09/18/18 Unknown H istory Active Meds: Active Medications Acetaminophen (Tylenol) 650 mg PO Q4H PRN PRN Reason: Pain MILD(1-3)/Fever >100.5/NAVARRETE Cinacalcet (Sensipar) 90 mg PO HS [facility] Docusate Sodium (Colace) 100 mg PO DAILY [facility] Famotidine (Pepcid) 10 mg PO BID [facility] Hydralazine HCl (Apresoline) 50 mg PO Q8H [facility] Last Admin: 04/06/19 04:38 Dose: 50 mg Documented by: Hydromorphone HCl (Dilaudid) 0.5 mg IV Q3H PRN PRN Reason: Pain , Severe (7-10) Sodium Chloride (Nacl 0.9% 1000 Ml) 1,000 mls @ 75 mls/hr IV DIRECT [facility] Metoclopramide HCl (Reglan) 5 mg IV Q6H PRN PRN Reason: Nausea And Vomiting Miscellaneous Medication (Captopril (Nf)) 25 mg PO BID [facility] Multivitamins (Theragran Tab) 1 each PO DAILY [facility] Mycophenolate Mofetil (Cellcept) 250 mg PO BID [facility] Last Admin: 04/06/19 04:25 Dose: 250 mg Documented by: Nifedipine (Procardia Xl) 60 mg PO BID@0800,1700 [facility] Last Admin: 04/06/19 04:26 Dose: 60 mg Documented by: Ondansetron HCl (Zofran) 4 mg IV Q8H PRN PRN Reason: Nausea And Vomiting Pantoprazole Sodium (Protonix) 40 mg PO QDAY [facility] Potassium Chloride (Potassium Chloride) 20 meq PO BID [facility] Last Admin: 04/06/19 04:27 Dose: 20 meq Documented by: Prednisone (Deltasone) 5 mg PO DAILY [facility] Sodium Chloride (Sodium Chloride Flush Syringe 10 Ml) 10 ml IV BID [facility] Sodium Chloride (Sodium Chloride Flush Syringe 10 Ml) 10 ml IV PRN PRN PRN Reason: LINE FLUSH Tacrolimus (Prograf) 1 mg PO Q12HR [facility] Last Admin: 04/06/19 04:26 Dose: 1 mg Documented by: Tacrolimus (Prograf) 1 mg PO Q12HR [facility] Last Admin: 04/06/19 04:35 Dose: 1 mg Documented by: Warfarin Sodium (Coumadin) 7.5 mg PO QDAY [facility]; Protocol Exam - Constitutional Vitals: Temp Pulse Resp BP Pulse Ox 97.5 F L 85 18 178/84 96 04/06/19 02:00 04/06/19 02:00 04/06/19 02:00 04/06/19 02:00 04/06/19 02:00 General appearance: Present: no acute distress, well-nourished - EENT Eyes: Present: PERRL ENT: hearing intact, clear oral mucosa - Neck Neck: Present: supple, normal ROM - Respiratory Respiratory effort: normal Respiratory: bilateral: CTA - Cardiovascular Heart Sounds: Present: S1 & S2. Absent: rub, click - Extremities Extremities: no ischemia, pulses intact, pulses symmetrical, No edema Peripheral Pulses: within normal limits - Abdominal General gastrointestinal: Present: soft, non-tender, non-distended, normal bowel sounds Male genitourinary: Present: normal - Integumentary Integumentary: Present: clear, warm, dry - Musculoskeletal Musculoskeletal: strength equal bilaterally, generalized weakness - Psychiatric Psychiatric: other (Lethargic) - Neurologic Neurologic: CNII-XII intact, moves all extremities Results - Labs CBC & Chem 7: 04/06/19 04:49 04/06/19 04:49 Labs: Laboratory Last Values WBC 9.5 K/mm3 (4.5-11.0) 04/06/19 04:49 RBC 2.73 M/mm3 (3.65-5.03) L 04/06/19 04:49 Hgb 7.9 gm/dl (11.8-15.2) L 04/06/19 04:49 Hct 25.0 % (35.5-45.6) L 04/06/19 04:49 MCV 91 fl (84-94) 04/06/19 04:49 MCH 29 pg (28-32) 04/06/19 04:49 MCHC 32 % (32-34) 04/06/19 04:49 RDW 16.7 % (13.2-15.2) H 04/06/19 04:49 Plt Count 206 K/mm3 (140-440) 04/06/19 04:49 Lymph % (Auto) 3.0 % (13.4-35.0) L 04/06/19 04:49 [place] % (Auto) 6.3 % (0.0-7.3) 04/06/19 04:49 Eos % (Auto) 0.3 % (0.0-4.3) 04/06/19 04:49 Baso % (Auto) 1.3 % (0.0-1.8) 04/06/19 04:49 Lymph # 0.3 K/mm3 (1.2-5.4) L 04/06/19 04:49 Rabun # 0.6 K/mm3 (0.0-0.8) 04/06/19 04:49 Eos # 0.0 K/mm3 (0.0-0.4) 04/06/19 04:49 Baso # 0.1 K/mm3 (0.0-0.1) 04/06/19 04:49 Seg Neutrophils % 89.1 % (40.0-70.0) H 04/06/19 04:49 Seg Neutrophils # 8.5 K/mm3 (1.8-7.7) H 04/06/19 04:49 PT 30.7 Sec. (12.2-14.9) H 04/05/19 15:20 INR 3.01 (0.87-1.13) H 04/05/19 15:20 APTT 65.1 Sec. (24.2-36.6) H* 04/05/19 15:20 Sodium 141 mmol/L (137-145) 04/06/19 04:49 Potassium 4.4 mmol/L (3.6-5.0) 04/06/19 04:49 Chloride 101.6 mmol/L (98-107) 04/06/19 04:49 Carbon Dioxide 22 mmol/L (22-30) 04/06/19 04:49 22 mmol/L 04/06/19 04:49 BUN 78 mg/dL (9-20) H 04/06/19 04:49 4.0 mg/dL (0.8-1.5) H 04/06/19 04:49 Estimated GFR 18 ml/min 04/06/19 04:49 20 % 04/06/19 04:49 Glucose 109 mg/dL (75-100) H 04/06/19 04:49 5.6 % (4-6) 04/05/19 13:40 Lactic Acid 0.80 mmol/L (0.7-2.0) 04/05/19 15:20 Calcium 11.6 mg/dL (8.4-10.2) H 04/06/19 04:49 Magnesium 2.20 mg/dL (1.7-2.3) 04/05/19 15:20 0.40 mg/dL (0.1-1.2) 04/06/19 04:49 AST 31 units/L (5-40) 04/06/19 04:49 ALT 12 units/L (7-56) 04/06/19 04:49 87 units/L (35-129) 04/06/19 04:49 18.0 umol/L (25-60) L 04/05/19 15:20 22 units/L (55-170) L 04/05/19 15:20 NT-Pro-B Natriuret Pep > 30029 pg/mL (0-900) H 04/05/19 15:38 6.3 g/dL (6.3-8.2) 04/06/19 04:49 2.9 g/dL (3.9-5) L 04/06/19 04:49 0.9 % 04/06/19 04:49 TSH 3.670 mlU/mL (0.270-4.200) 04/05/19 15:20 Yellow (Yellow) 04/05/19 19:58 Slightly cloudy (Clear) 04/05/19 19:58 6.0 (5.0-7.0) 04/05/19 19:58 Ur Specific [place] 1.010 (1.003-1.030) 04/05/19 19:58 100 mg/dl mg/dL (Negative) 04/05/19 19:58 Negative mg/dL (Negative) 04/05/19 19:58 Negative mg/dL (Negative) 04/05/19 19:58 Small (Negative) A 04/05/19 19:58 Negative (Negative) 04/05/19 19:58 Negative (Negative) 04/05/19 19:58 < 2.0 mg/dL (<2.0) 04/05/19 19:58 Ur Leukocyte Esterase Large (Negative) 04/05/19 19:58 28.0 /HPF (0.0-6.0) H 04/05/19 19:58 5.0 /HPF (0.0-6.0) 04/05/19 19:58 U Epithel Cells (Auto) < 1.0 /HPF (0-13.0) 04/05/19 19:58 Few /HPF 04/05/19 19:58 Salicylates < 0.3 mg/dL (2.8-20.0) L 04/05/19 15:20 Acetaminophen < 5.0 ug/mL (10.0-30.0) L 04/05/19 15:20 Plasma/Serum Alcohol < 0.01 % (0-0.07) 04/05/19 15:20 Short CBC 04/05/19 04/06/19 Range/Units 13:40 04:49 WBC 8.4 9.5 (4.5-11.0) K/mm3 Hgb 9.2 L 7.9 L (11.8-15.2) gm/dl Hct 28.7 L 25.0 L (35.5-45.6) % Plt Count 182 206 (140-440) K/mm3 BMP 04/05/19 04/06/19 13:40 04:49 Sodium 142 141 Potassium 3.8 4.4 Chloride 101.2 101.6 Carbon Dioxide 24 22 BUN 76 H 78 H Creatinine 4.1 H 4.0 H Glucose 118 H 109 H Calcium 11.4 H 11.6 H Cardiac Enzymes 04/05/19 Range/Units 15:20 Total Creatine Kinase 22 L (55-170) units/L Liver Function 04/06/19 Range/Units 04:49 Total Bilirubin 0.40 (0.1-1.2) mg/dL AST 31 (5-40) units/L ALT 12 (7-56) units/L Alkaline Phosphatase 87 (35-129) units/L Albumin 2.9 L (3.9-5) g/dL Urine 04/05/19 Range/Units 19:58 Urine Color Yellow (Yellow) Urine pH 6.0 (5.0-7.0) Ur Specific [place] 1.010 (1.003-1.030) Urine Protein 100 mg/dl (Negative) mg/dL Urine Glucose (UA) Negative (Negative) mg/dL - Imaging and Cardiology EKG: report reviewed (Afib LVH) Chest x-ray: report reviewed (NAF) CT scan - abdomen: report reviewed (NAF) CT Scan - head: report reviewed Imaging and Cardiology: Head CT IMPRESSION: 1. No acute hemorrhage or other acute intracranial abnormality. 2. Moderate cerebral white matter hypoattenuation with pattern most suggestive of chronic microvascular angiopathic change. 3. Chronic appearing lacunar infarct in the left thalamus. Assessment and Plan Advance Directives: Yes (Full code) VTE prophylaxis?: Chemical Plan of care discussed with patient/family: Yes - Patient Problems (1) DION (acute kidney injury) Current Visit: Yes Status: Acute Plan to address problem: Baseline BUN?Cr was 32/2.2 on 09/19/18 Today BUn/cr is 76/4.1 IV fluids for now On Iv Lasix 80 mg po qd Will hold for one or 2 days Will also get Echo --for EF He maybe getting excessive lasix (2) HTN (hypertension) Current Visit: Yes Status: Chronic Qualifiers: Hypertension type: essential hypertension Qualified Code(s): I10 - Esse ntial (primary) hypertension Plan to address problem: Cont antihypertensives (3) Acute encephalopathy Current Visit: Yes Status: Acute Plan to address problem: Etiology unclear Dehydration??/Volume depletionFluid challenge (4) Afib Current Visit: Yes Status: Chronic Qualifiers: Atrial fibrillation type: chronic Qualified Code(s): I48.2 - Chronic atrial fibrillation Plan to address problem: COnt Coumadin (5) CHF (congestive heart failure) Current Visit: Yes Status: Chronic Qualifiers: Heart failure type: combined systolic and diastolic Plan to address problem: Check Echo for EF (6) GERD (gastroesophageal reflux disease) Current Visit: Yes Status: Chronic Qualifiers: Esophagitis presence: without esophagitis Qualified Code(s): K21.9 - Gastro-esophageal reflux disease without esophagitis Plan to address problem: on ppi's (7) DVT prophylaxis Current Visit: Yes Status: Acute Plan to address problem: On Heparin and GI prophylaxis
[2019-04-06] MEDS: COLACE PO SCH (09:11)
[2019-04-06] MEDS: PEPCID PO SCH (09:11)
[2019-04-06] MEDS: THERAGRAN Tab PO SCH (09:11)
[2019-04-06] MEDS: DELTASONE PO SCH (09:12)
[2019-04-06] MEDS: SODIUM CHLORIDE FLUSH SYRINGE 10 ML IV SCH (09:12)
[2019-04-06] MEDS: PROTONIX PO SCH (09:12)
--- NOTE | 2019-04-06 09:36 | Progress Note ---
Assessment and Plan - Patient Problems (1) Acute on chronic renal failure Current Visit: Yes Status: Acute Plan to address problem: Acute on chronic renal failure Creatinine has been worsening over the past year Apparently creatinine was 2.5 in May 2018 and then worsened to 3.1 in November of this year subsequently 3.8 early this month I reviewed urinalysis with isosthenuria possible tubular injury proteinuria noted with few red blood cells I reviewed renal ultrasound which showed normal kidney transplant allograft with good vascular supply Obtain serologies received diuretics Bumex 1 mg daily Strict input and output Check tacrolimus level (2) CHF (congestive heart failure) Current Visit: No Status: Acute Qualifiers: Heart failure type: diastolic Heart failure chronicity: chronic Qualified Code(s): I50.32 - Chronic diastolic (congestive) heart failure Plan to address problem: Congestive heart failure Chest x-ray with evidence of pulmonary congestion does have ankle edema. Received Bumex 1 mg daily for now Low-salt diet Obtain echocardiogram (3) Renal transplant failure and rejection Current Visit: Yes Status: Acute Plan to address problem: Renal transplant failure Unclear if there is evidence of rejection Also unclear if the kidney has been biopsy in the past by transplant nephrology We'll need to discuss with patient's primary transplant [employer] at [facility] possible nephrosclerosis versus rejection We'll need to determine if he needs to be transferred to [place] for further measures and treatment of a transplant versus dialysis if his renal function worsens Check tacrolimus level I have called the kidney transplant clinic at [facility] Awaiting callback from kidney transplant physician (4) HTN (hypertension) Current Visit: Yes Status: Chronic Qualifiers: Hypertension type: essential hypertension Qualified Code(s): I10 - Essential (primary) hypertension Plan to address problem: Hypertension uncontrolled Resume home medications list obtained from clinic Subjective Interval history: 68-year-old gentleman with medical history significant for hypertension,congestive heart failure , Previous ESRD with Left arm AVF follows at [facility] follows with Dr. dial, Kidney transplant january 2015 now with worsening renal function , per office records creatinine was 3. 8 on 03/14 , creatinine was 2. 49, 05/2018 , creatinine was 3.11 on December 01 2018. patient seen today He denies any orthopnea or pnd He appears frustrated about his care I called the [facility] kidney transplant group at [facility] and was told he was last seen on March [address] [place] and impression was was renal function in the setting of diuresis congestive heart failure and that he might need dialysis in the next year there was no plan to biopsy the patient per last clinic note. I discussed with the kidney tutor coordinator regarding his recent admission the kidney tutor coordinator Will arrange for the transplant conductor and engineer to contact us, I have provided a callback number Objective - Vital Signs Vital signs: Vital Signs - 12hr 04/06/19 04/06/19 04/06/19 02:00 07:58 08:27 Temperature 97.5 F L 97.9 F Pulse Rate 85 85 85 Respiratory 18 18 Rate Blood Pressure 178/84 121/58 121/58 O2 Sat by Pulse 96 96 Oximetry - General Appearance General appearance: well-developed, well-nourished EENT: ATNC, PERRL, mucous membranes moist Neck: no JVD Respiratory: Present: Clear to Ascultation Cardiology: regular, S1S2 Gastrointestinal: normal, normoactive bowel sounds Integumentary: no rash Neurologic: no focal deficit, CN 3-12 intact Musculoskeletal: deferred - Lab 04/06/19 04:49 04/06/19 04:49 Most recent lab results Calcium 11.6 mg/dL (8.4-10.2) H 04/06/19 04:49 Magnesium 2.20 mg/dL (1.7-2.3) 04/05/19 15:20 - Imaging Chest x-ray: image reviewed Medications & Allergies - Medications Allergies/Adverse Reactions: Allergies iodine Allergy (Verified 09/18/18 15:29) Hives IVP DYE Allergy (Uncoded 08/31/13 09:00) Hives Home Medications: Home Medications Medication Instructions Recorded Confirmed Last Taken Type Captopril (Nf) [Capoten (Nf)] 25 mg PO BID 05/25/18 04/06/19 04/04/19 08:00 History Cinacalcet HCl [Sensipar] 90 mg PO HS 05/25/18 04/06/19 04/04/19 21:00 History Furosemide [Lasix TAB] 80 mg PO QDAY 05/25/18 04/06/19 04/05/19 08:00 History Hydralazine HCl 50 mg PO Q8H 05/25/18 04/06/19 04/05/19 08:00 History Mycophenolate [Cellcept] 250 mg PO BID 05/25/18 04/06/19 04/05/19 08:00 History NIFEdipine [Nifedipine ER] 60 mg PO BID 05/25/18 04/06/19 04/05/19 08:00 History Pantoprazole [Protonix TAB] 40 mg PO QDAY 05/25/18 04/06/19 04/05/19 08:00 History Potassium Chloride [Klor-Con] 20 meq PO BID 05/25/18 04/06/19 04/05/19 08:00 History Tacrolimus [Prograf] 1 mg PO Q12H 05/25/18 04/06/19 04/05/19 08:00 History Warfarin [Coumadin] 7.5 mg PO QDAY 05/25/18 04/06/19 Unknown History predniSONE [Prednisone] 5 mg PO DAILY 05/25/18 04/06/19 04/05/19 08:00 History Docusate Sodium [Colace CAP] 100 mg PO DAILY 09/18/18 04/06/19 04/05/19 08:00 History Multivitamin [Multiple Vitamins] 1 tab PO DAILY 09/18/18 04/06/19 04/05/19 08:00 History Active Medications: Generic Name Dose Route Start Last Admin Trade Name Freq PRN Reason Stop Dose Admin Acetaminophen 650 mg 04/05/19 22:38 Tylenol PO Q4H PRN Pain MILD(1-3)/Fever >100.5/NAVARRETE Cinacalcet 90 mg 04/06/19 22:00 Sensipar PO HS [facility] Docusate Sodium 100 mg 04/06/19 10:00 04/06/19 09:11 Colace PO 100 mg DAILY [facility] Administration Famotidine 10 mg 04/06/19 10:00 04/06/19 09:11 Pepcid PO 10 mg BID [facility] Administration Heparin Sodium (Porcine) 5,000 unit 04/06/19 10:00 Heparin SUB-Q Q12HR [facility] Hydralazine HCl 50 mg 04/06/19 00:00 04/06/19 08:27 Apresoline PO Not Given Q8H [facility] Hydromorphone HCl 0.5 mg 04/05/19 22:38 Dilaudid IV Q3H PRN Pain , Severe (7-10) Sodium Chloride 1,000 mls @ 75 mls/hr 04/05/19 23:00 Nacl 0.9% 1000 Ml IV DIRECT [facility] Metoclopramide HCl 5 mg 04/05/19 22:38 Reglan IV Q6H PRN Nausea And Vomiting Miscellaneous Medication 25 mg 04/05/19 22:30 Captopril (Nf) PO BID [facility] Multivitamins 1 each 04/06/19 10:00 04/06/19 09:11 Theragran Tab PO 1 each DAILY [facility] Administration Mycophenolate Mofetil 250 mg 04/05/19 23:00 04/06/19 04:25 Cellcept PO 250 mg BID [facility] Administration Nifedipine 60 mg 04/05/19 22:30 04/06/19 08:28 Procardia Xl PO Not Given BID@0800,1700 [facility] Ondansetron HCl 4 mg 04/05/19 22:38 Zofran IV Q8H PRN Nausea And Vomiting Pantoprazole Sodium 40 mg 04/06/19 10:00 04/06/19 09:12 Protonix PO 40 mg QDAY [facility] Administration Potassium Chloride 20 meq 04/05/19 23:00 04/06/19 04:27 Potassium Chloride PO 20 meq BID [facility] Administration Prednisone 5 mg 04/06/19 10:00 04/06/19 09:12 Deltasone PO 5 mg DAILY [facility] Administration Sodium Chloride 10 ml 04/06/19 10:00 04/06/19 09:12 Sodium Chloride Flush Syringe 10 Ml IV 10 ml BID [facility] Administration Sodium Chloride 10 ml 04/05/19 22:38 Sodium Chloride Flush Syringe 10 Ml IV PRN PRN LINE FLUSH Tacrolimus 1 mg 04/06/19 19:00 Prograf PO Q12H [facility] Warfarin Sodium 7.5 mg 04/06/19 10:00 Coumadin PO QDAY [facility] Protocol
[2019-04-06] MEDS ORDERED: COUMADIN PO SCH ×3 (10:00→21:00)
[2019-04-06] MEDS ORDERED: HEPARIN SUB-Q SCH (10:00)
--- NOTE | 2019-04-06 12:24 | Progress Note ---
Assessment and Plan 68-year-old AAM with pmh of hypertension, A. fib on anticoagulation, renal insufficiency, status post renal transplant, in the past has been on graft rejection therapy, uncertain if on antirejection meds at this time, malnutrition, left upper extremity fistula presents to ED for evaluation of worsening renal insufficiency as per primary care doctor. However, the patient is altered. He cannot tell why he is here. He cannot answer whether or not he is having any pain. He does not know what medications he is taking. We have attempted to contact the patient's or collateral information, and left a voicemail for call back, as nobody has answered. In the emergency room, the patient is sleepy but arousable, moving 4 extremities and protecting his airway. No additional history is available at this time. - Acute on chronic renal failure Status post renal transplant Discussed with entry level lab technician and who intimated that the transplant unit at [place] was aware that patient's was undergoing rejection High biopsy of the kidney that showed interstitial changes. Recommended proceeding with renal replacement therapy - Acute metabolic encephalopathy Due to renal failure and other comorbid conditions Continue treatment of bilateral factors - Atrial fibrillation With controlled Anticoagulated with Coumadin - UTI Urine culture obtained F/u with the result of the same culture With IV Rocephin - GERD Continue PPI - Acute on chronic combined systolic and diastolic heart failure Diuresis, beta emily, we will hold ACEI because of acute on chronic renal failure DVT prophylaxis already on Coumadin CODE STATUS patient is full code Time spent 32 minutes Subjective Date of service: 04/06/19 Principal diagnosis: acute metabolic encephalopathy, acute on CKD, Interval history: Patient lying flat in bed in no obvious distress. Denies any chest pain. No fever. Objective - Exam Narrative Exam: Constitutional: Well-nourished well-developed. In no distress Head: Normocephalic atraumatic Eyes: Pupils are equal round and reactive to light Nose: No enlarged turbinates, no septal deviation. Mouth: Moist mucous membranes. Neck: Supple no thyromegaly. No bruit. No JVD Heart: Regular rate and rhythm, S1-S2 normal. No rubs murmurs or gallop Lungs: Please breath sounds bilaterally. no rales or rhonchi Abdomen: Soft, nontender. Bowel sound are present. Extremities: No edema, no cyanosis, no clubbing. Neuro: Alert oriented Oriented x3. No focal sensory or motor deficit. Skin: No rashes or hyperpigmented spots Musculoskeletal system: No joint pain or swelling Hematological: No petechia or subcutanous hemorrhages. Immunological: No multiple septic spots on the skin Lymphatic: No generalized lymphadenopathy Psychiatry: Euthymic. Calm. - Constitutional Vitals: Vital Signs - 12hr 04/06/19 04/06/19 04/06/19 02:00 07:58 08:27 Temperature 97.5 F L 97.9 F Pulse Rate 85 85 85 Respiratory 18 18 Rate Blood Pressure 178/84 121/58 121/58 O2 Sat by Pulse 96 96 Oximetry - Labs CBC & Chem 7: 04/06/19 04:49 04/06/19 04:49 Labs: Abnormal lab results 04/05/19 04/05/19 04/05/19 Range/Units 13:40 13:40 15:20 RBC 3.18 L (3.65-5.03) M/mm3 Hgb 9.2 L (11.8-15.2) gm/dl Hct 28.7 L (35.5-45.6) % RDW 16.9 H (13.2-15.2) % Lymph % (Auto) 3.5 L (13.4-35.0) % Mora % (Auto) 7.4 H (0.0-7.3) % Lymph # 0.3 L (1.2-5.4) K/mm3 Seg Neutrophils % 87.9 H (40.0-70.0) % Seg Neutrophils # (1.8-7.7) K/mm3 PT 30.7 H (12.2-14.9) Sec. INR 3.01 H (0.87-1.13) APTT 65.1 H* (24.2-36.6) Sec. BUN 76 H (9-20) mg/dL Creatinine 4.1 H (0.8-1.5) mg/dL Glucose 118 H (75-100) mg/dL Calcium 11.4 H (8.4-10.2) mg/dL Ammonia (25-60) umol/L Total Creatine Kinase (55-170) units/L NT-Pro-B Natriuret Pep (0-900) pg/mL Albumin (3.9-5) g/dL Urine Blood (Negative) Urine WBC (Auto) (0.0-6.0) /HPF Salicylates (2.8-20.0) mg/dL Acetaminophen (10.0-30.0) ug/mL 04/05/19 04/05/19 04/05/19 Range/Units 15:20 15:20 15:20 RBC (3.65-5.03) M/mm3 Hgb (11.8-15.2) gm/dl Hct (35.5-45.6) % RDW (13.2-15.2) % Lymph % (Auto) (13.4-35.0) % Mora % (Auto) (0.0-7.3) % Lymph # (1.2-5.4) K/mm3 Seg Neutrophils % (40.0-70.0) % Seg Neutrophils # (1.8-7.7) K/mm3 PT (12.2-14.9) Sec. INR (0.87-1.13) APTT (24.2-36.6) Sec. BUN (9-20) mg/dL Creatinine (0.8-1.5) mg/dL Glucose (75-100) mg/dL Calcium (8.4-10.2) mg/dL Ammonia 18.0 L (25-60) umol/L Total Creatine Kinase 22 L (55-170) units/L NT-Pro-B Natriuret Pep (0-900) pg/mL Albumin (3.9-5) g/dL Urine Blood (Negative) Urine WBC (Auto) (0.0-6.0) /HPF Salicylates < 0.3 L (2.8-20.0) mg/dL Acetaminophen (10.0-30.0) ug/mL 04/05/19 04/05/19 04/05/19 Range/Units 15:20 15:38 19:58 RBC (3.65-5.03) M/mm3 Hgb (11.8-15.2) gm/dl Hct (35.5-45.6) % RDW (13.2-15.2) % Lymph % (Auto) (13.4-35.0) % Mora % (Auto) (0.0-7.3) % Lymph # (1.2-5.4) K/mm3 Seg Neutrophils % (40.0-70.0) % Seg Neutrophils # (1.8-7.7) K/mm3 PT (12.2-14.9) Sec. INR (0.87-1.13) APTT (24.2-36.6) Sec. BUN (9-20) mg/dL Creatinine (0.8-1.5) mg/dL Glucose (75-100) mg/dL Calcium (8.4-10.2) mg/dL Ammonia (25-60) umol/L Total Creatine Kinase (55-170) units/L NT-Pro-B Natriuret Pep > 90838 H (0-900) pg/mL Albumin (3.9-5) g/dL Urine Blood Small A (Negative) Urine WBC (Auto) 28.0 H (0.0-6.0) /HPF Salicylates (2.8-20.0) mg/dL Acetaminophen < 5.0 L (10.0-30.0) ug/mL 04/06/19 04/06/19 Range/Units 04:49 04:49 RBC 2.73 L (3.65-5.03) M/mm3 Hgb 7.9 L (11.8-15.2) gm/dl Hct 25.0 L (35.5-45.6) % RDW 16.7 H (13.2-15.2) % Lymph % (Auto) 3.0 L (13.4-35.0) % Mora % (Auto) (0.0-7.3) % Lymph # 0.3 L (1.2-5.4) K/mm3 Seg Neutrophils % 89.1 H (40.0-70.0) % Seg Neutrophils # 8.5 H (1.8-7.7) K/mm3 PT (12.2-14.9) Sec. INR (0.87-1.13) APTT (24.2-36.6) Sec. BUN 78 H (9-20) mg/dL Creatinine 4.0 H (0.8-1.5) mg/dL Glucose 109 H (75-100) mg/dL Calcium 11.6 H (8.4-10.2) mg/dL Ammonia (25-60) umol/L Total Creatine Kinase (55-170) units/L NT-Pro-B Natriuret Pep (0-900) pg/mL Albumin 2.9 L (3.9-5) g/dL Urine Blood (Negative) Urine WBC (Auto) (0.0-6.0) /HPF Salicylates (2.8-20.0) mg/dL Acetaminophen (10.0-30.0) ug/mL
--- NOTE | 2019-04-06 13:19 | Consultation ---
History of Present Illness Consult date: 04/06/19 Consult reason: congestive heart failure History of present illness: 68-year-old man with multiple medical problems, ostensibly referred to the hospital by his outpatient doctor due to abnormal labs. Patient is unable to provide a history, it is unclear if he had any symptoms associated with the abnormal labs. Laboratory exam in the hospital show a chronic anemia, chronic kidney disease with current creatinine of 4.0, and a coagulopathy with INR of 3.0 on warfarin therapy. Medical history is notable for severe renal failure, status post renal transplant, permanent atrial fibrillation, sick sinus syndrome status post leadl ess pacemaker implant. Noninvasive cardiac workup with echocardiogram 8 months ago showed normal left ventricular systolic function, ejection fraction 55-60%, moderately severe left ventricular hypertrophy, and severe pulmonary hypertension with a pulmonary artery systolic pressure of 68. Patient is currently on the medical floor, breathing comfortably on room air, no acute distress. He appears markedly cachectic, chronically ill-appearing. EKG is atrial fibrillation with well-controlled ventricular rate, left ventricle hypertrophy with repolarization abnormalities of LVH. Chest x-ray reveals cardiomegaly and mild pulmonary vascular congestion. Past History Past Medical History: atrial fib, hypertension, renal failure Medications and Allergies Allergies Allergy/AdvReac Type Severity Reaction Status Date / Time iodine Allergy Hives Verified 09/18/18 15:29 IVP DYE Allergy Hives Uncoded 08/31/13 09:00 Home Medications Medication Instructions Recorded Confirmed Last Taken Type Captopril (Nf) [Capoten (Nf)] 25 mg PO BID 05/25/18 04/06/19 04/04/19 08:00 History Cinacalcet HCl [Sensipar] 90 mg PO HS 05/25/18 04/06/19 04/04/19 21:00 History Furosemide [Lasix TAB] 80 mg PO QDAY 05/25/18 04/06/19 04/05/19 08:00 History Hydralazine HCl 50 mg PO Q8H 05/25/18 04/06/19 04/05/19 08:00 History Mycophenolate [Cellcept] 250 mg PO BID 05/25/18 04/06/19 04/05/19 08:00 History NIFEdipine [Nifedipine ER] 60 mg PO BID 05/25/18 04/06/19 04/05/19 08:00 History Pantoprazole [Protonix TAB] 40 mg PO QDAY 05/25/18 04/06/19 04/05/19 08:00 History Potassium Chloride [Klor-Con] 20 meq PO BID 05/25/18 04/06/19 04/05/19 08:00 History Tacrolimus [Prograf] 1 mg PO Q12H 05/25/18 04/06/19 04/05/19 08:00 History Warfarin [Coumadin] 7.5 mg PO QDAY 05/25/18 04/06/19 Unknown History predniSONE [Prednisone] 5 mg PO DAILY 05/25/18 04/06/19 04/05/19 08:00 History Docusate Sodium [Colace CAP] 100 mg PO DAILY 09/18/18 04/06/19 04/05/19 08:00 Hi story Multivitamin [Multiple Vitamins] 1 tab PO DAILY 09/18/18 04/06/19 04/05/19 08:00 History Active Meds: Active Medications Acetaminophen (Tylenol) 650 mg PO Q4H PRN PRN Reason: Pain MILD(1-3)/Fever >100.5/NAVARRETE Carvedilol (Coreg) 3.125 mg PO BID [facility] Cinacalcet (Sensipar) 90 mg PO HS [facility] Docusate Sodium (Colace) 100 mg PO DAILY [facility] Last Admin: 04/06/19 09:11 Dose: 100 mg Documented by: Famotidine (Pepcid) 10 mg PO BID [facility] Last Admin: 04/06/19 09:11 Dose: 10 mg Documented by: Hydralazine HCl (Apresoline) 50 mg PO Q8H [facility] Last Admin: 04/06/19 12:51 Dose: 50 mg Documented by: Hydromorphone HCl (Dilaudid) 0.5 mg IV Q3H PRN PRN Reason: Pain , Severe (7-10) Sodium Chloride (Nacl 0.9% 1000 Ml) 1,000 mls @ 75 mls/hr IV DIRECT [facility] Ceftriaxone Sodium (Rocephin/Ns 1 Gm/50 Ml) 1 gm in 50 mls @ 100 mls/hr IV Q24HR [facility] Metoclopramide HCl (Reglan) 5 mg IV Q6H PRN PRN Reason: Nausea And Vomiting Miscellaneous Medication (Captopril (Nf)) 25 mg PO BID [facility] Multivitamins (Theragran Tab) 1 each PO DAILY [facility] Last Admin: 04/06/19 09:11 Dose: 1 each Documented by: Mycophenolate Mofetil (Cellcept) 250 mg PO BID [facility] Last Admin: 04/06/19 10:05 Dose: Not Given Documented by: Nifedipine (Procardia Xl) 60 mg PO BID@0800,1700 [facility] Last Admin: 04/06/19 08:28 Dose: Not Given Documented by: Ondansetron HCl (Zofran) 4 mg IV Q8H PRN PRN Reason: Nausea And Vomiting Pantoprazole Sodium (Protonix) 40 mg PO QDAY [facility] Last Admin: 04/06/19 09:12 Dose: 40 mg Documented by: Potassium Chloride (Potassium Chloride) 20 meq PO BID [facility] Last Admin: 04/06/19 10:05 Dose: Not Given Documented by: Prednisone (Deltasone) 5 mg PO DAILY [facility] Last Admin: 04/06/19 09:12 Dose: 5 mg Documented by: Sodium Chloride (Sodium Chloride Flush Syringe 10 Ml) 10 ml IV BID [facility] Last Admin: 04/06/19 09:12 Dose: 10 ml Documented by: Sodium Chloride (Sodium Chloride Flush Syringe 10 Ml) 10 ml IV PRN PRN PRN Reason: LINE FLUSH Tacrolimus (Prograf) 1 mg PO Q12H [facility] Warfarin Sodium (Coumadin) 7.5 mg PO QDAY [facility]; Protocol Review of Systems ROS unobtainable: due to mental status Physical Examination Vital Signs Temp Pulse Resp BP Pulse Ox 98.1 F 78 22 147/60 93 04/05/19 12:28 04/05/19 12:28 04/05/19 12:28 04/05/19 12:28 04/05/19 12:28 General appearance: no acute distress HEENT: Positive: PERRL Neck: Positive: neck supple Cardiac: Positive: irregularly irregular Lungs: Positive: Decreased Breath Sounds Neuro: Positive: Weakness Abdomen: Positive: Soft Male genitourinary: Positive: deferred Skin: Positive: Clear Extremities: Absent: edema Results 04/06/19 04:49 04/06/19 04:49 Cardiac Enzymes 04/06/19 Range/Units 04:49 AST 31 (5-40) units/L Coagulation 04/05/19 Range/Units 15:20 PT 30.7 H (12.2-14.9) Sec. INR 3.01 H (0.87-1.13) APTT 65.1 H* (24.2-36.6) Sec. CBC 04/05/19 04/06/19 Range/Units 13:40 04:49 WBC 8.4 9.5 (4.5-11.0) K/mm3 RBC 3.18 L 2.73 L (3.65-5.03) M/mm3 Hgb 9.2 L 7.9 L (11.8-15.2) gm/dl Hct 28.7 L 25.0 L (35.5-45.6) % Plt Count 182 206 (140-440) K/mm3 Lymph # 0.3 L 0.3 L (1.2-5.4) K/mm3 [place] # 0.6 0.6 (0.0-0.8) K/mm3 Eos # 0.0 0.0 (0.0-0.4) K/mm3 Baso # 0.1 0.1 (0.0-0.1) K/mm3 Comprehensive Metabolic Panel 04/05/19 04/06/19 Range/Units 13:40 04:49 Sodium 142 141 (137-145) mmol/L Potassium 3.8 4.4 (3.6-5.0) mmol/L Chloride 101.2 101.6 (98-107) mmol/L Carbon Dioxide 24 22 (22-30) mmol/L BUN 76 H 78 H (9-20) mg/dL Creatinine 4.1 H 4.0 H (0.8-1.5) mg/dL Glucose 118 H 109 H (75-100) mg/dL Calcium 11.4 H 11.6 H (8.4-10.2) mg/dL AST 31 (5-40) units/L ALT 12 (7-56) units/L Alkaline Phosphatase 87 (35-129) units/L Total Protein 6.3 (6.3-8.2) g/dL Albumin 2.9 L (3.9-5) g/dL EKG interpretations - Telemetry EKG Rhythm: Atrial Fibrillation Assessment and Plan - Patient Problems (1) Fluid overload Current Visit: Yes Status: Acute Plan to address problem: Patient's chest x-ray shows evidence of mild fluid overload, management of fluid overload will depend on status of renal function. (2) Chronic atrial fibrillation Current Visit: Yes Status: Acute Plan to address problem: Chronic atrial fibrillation on a rate control strategy and oral anticoagulation with warfarin.
[2019-04-06] MEDS: ROCEPHIN/NS 1 GM/50 ML 1 GM/50 ML BAG IV SCH (13:56)
[2019-04-06] MEDS: COREG PO SCH (13:58)
[2019-04-06] MEDS ORDERED: VANCOMYCIN PHARMACY TO DOSE IV SCH (15:00)
[2019-04-06] MEDS ORDERED: VANCOMYCIN/NS 1 GM/250 ML 1 GM/250 ML BAG IV ONE (16:00)
[2019-04-06] MEDS ORDERED: BUMEX IV ONE (16:42)
[2019-04-06] MEDS ORDERED: PROCRIT IV ONE (19:00)
[2019-04-06 20:31] LABS: INR 2.92 (0.87-1.13)
[2019-04-07] MEDS: CELLCEPT PO SCH ×3 (00:34→22:05)
[2019-04-07] MEDS: PEPCID PO SCH ×2 (00:34→09:42)
[2019-04-07] MEDS: SENSIPAR PO SCH ×2 (00:35→22:05)
[2019-04-07] MEDS: APRESOLINE PO SCH ×4 (00:36→20:00)
[2019-04-07] MEDS: SODIUM CHLORIDE FLUSH SYRINGE 10 ML IV SCH ×3 (00:37→22:05)
[2019-04-07 05:09] LABS: INR 2.97 (0.87-1.13)
[2019-04-07] MEDS: COREG PO SCH ×3 (07:50→22:00)
[2019-04-07] MEDS: PROGRAF PO SCH ×2 (08:00→18:50)
[2019-04-07] MEDS: PROCARDIA XL PO SCH ×2 (08:01→16:37)
--- NOTE | 2019-04-07 09:41 | Progress Note ---
Assessment and Plan Volume overload Chronic renal failure status post renal transplant with current creatinine of 4.0 Chronic anemia Permanent Afib on warfarin therapy Hx of Sick sinus syndrome status post leadless pacemaker implant. Hypertension Valvular heart disease An echocardiogram done this admission shows mild to moderate AI with severely dilated left. There is moderate left ventricular hypertrophy and moderate to severe pulmonary hypertension with a RVSP of 59. Normal left ventricular systolic function, ejection fraction 55-60% Conservative cardiac management. Subjective Date of service: 04/07/19 Principal diagnosis: acute metabolic encephalopathy, acute on CKD, Interval history: Patient denies chest pain, shortness of breath and palpitations. Objective Vital Signs Temp Pulse Resp BP BP Pulse Ox 04/07/19 08:01 125/64 04/07/19 07:40 97.6 F 70 20 90/56 04/07/19 07:39 97.6 F 70 20 90/56 98 04/07/19 01:51 98.4 F 85 18 142/76 95 04/06/19 19:02 97.7 F 75 18 129/56 100 04/06/19 16:31 71 127/69 99 04/06/19 14:00 97.6 F 18 111/75 04/06/19 13:58 82 136/69 04/06/19 13:48 77 95 04/06/19 12:51 82 136/69 04/06/19 10:48 12 - Physical Examination General: No Apparent Distress HEENT: Positive: PERRL Neck: Positive: neck supple Cardiac: Positive: irregularly irregular Lungs: Positive: Decreased Breath Sounds Neuro: Positive: Weakness Extremities: Present: +1 Edema - Labs and Meds Coagulation 04/06/19 04/07/19 Range/Units 19:57 04:11 PT 30.0 H 30.4 H (12.2-14.9) Sec. INR 2.92 H 2.97 H (0.87-1.13) - Imaging and Cardiology EKG: report reviewed (Afib LVH)
[2019-04-07] MEDS: THERAGRAN Tab PO SCH (09:42)
[2019-04-07] MEDS: DELTASONE PO SCH (09:43)
[2019-04-07] MEDS: COLACE PO SCH (09:43)
[2019-04-07] MEDS: PROTONIX PO SCH (09:44)
[2019-04-07] MEDS: BUMEX IV SCH (09:44)
[2019-04-07] MEDS ORDERED: VANCOMYCIN/NS 1 GM/250 ML 1 GM/250 ML BAG IV ONE (10:00)
[2019-04-07] MEDS: ROCEPHIN/NS 1 GM/50 ML 1 GM/50 ML BAG IV SCH (10:17)
[2019-04-07 10:27] LABS: Calcium 10.9 mg/dL (8.4-10.2)
--- NOTE | 2019-04-07 16:39 | Progress Note ---
Assessment and Plan - Patient Problems (1) Acute on chronic renal failure Current Visit: Yes Status: Acute Plan to address problem: Acute on chronic renal failure Creatinine has been worsening over the past year Apparently creatinine was 2.5 in May 2018 and then worsened to 3.1 in November of this year subsequently 3.8 early this month I reviewed urinalysis with isosthenuria possible tubular injury proteinuria noted with few red blood cells I reviewed renal ultrasound which showed normal kidney transplant allograft with good vascular supply received diuretics Bumex 1 mg daily Strict input and output Check tacrolimus level We'll need outpatient follow-up initiation of dialysis likely out patient's only if patient has worsening shortness of breath or deterioration of his kidney function (2) CHF (congestive heart failure) Current Visit: No Status: Acute Qualifiers: Heart failure type: diastolic Heart failure chronicity: chronic Qualified Code(s): I50.32 - Chronic diastolic (congestive) heart failure Plan to address problem: Congestive heart failure Chest x-ray with evidence of pulmonary congestion does have ankle edema. Received Bumex 1 mg daily for now Low-salt diet reviewed echocardiogram severe pulmonary hypertension with preserved ejection fraction (3) Renal transplant failure and rejection Current Visit: Yes Status: Acute Plan to address problem: Renal transplant failure Unclear if there is evidence of rejection Also unclear if the kidney has been biopsy in the past by transplant nephrology We'll need to discuss with patient's primary transplant [employer] at [facility] possible nephrosclerosis versus rejection We'll need to determine if he needs to be transferred to [place] for further measures and treatment of a transplant versus dialysis if his renal function worsens Check tacrolimus level I have called the kidney transplant clinic at [facility] Discussed with the goal for tacrolimus 3-5 (4) HTN (hypertension) Current Visit: Yes Status: Chronic Qualifiers: Hypertension type: essential hypertension Qualified Code(s): I10 - Essential (primary) hypertension Plan to address problem: Hypertension uncontrolled Resume home medications list obtained from clinic Subjective Principal diagnosis: acute metabolic encephalopathy, acute on CKD, Interval history: 68-year-old gentleman with medical history significant for hypertension,congestive heart failure , Previous ESRD with Left arm AVF follows at [facility] follows with Dr. dial, Kidney transplant january 2015 now with worsening renal function , per office records creatinine was 3. 8 on 03/14 , creatinine was 2. 49, 05/2018 , creatinine was 3.11 on December 01 2018. patient seen today He denies any orthopnea or pnd Urine output is not robust however he doesn't appear to be in any distress Obtain repeat chest x-ray I called the [facility] transplant group at [facility] and was told he was last seen on March [address] [place] however he has severe interstitial fibrosis and therefore the allograft is not expected to improve Objective - Vital Signs Vital signs: Vital Signs - 12hr 04/07/19 04/07/19 04/07/19 07:39 07:40 08:01 Temperature 97.6 F 97.6 F Pulse Rate 70 70 Respiratory 20 20 Rate Blood Pressure 90/56 125/64 Blood Pressure 90/56 [Right] O2 Sat by Pulse 98 Oximetry 04/07/19 04/07/19 04/07/19 09:49 10:00 12:12 Temperature Pulse Rate 76 70 Respiratory 16 Rate Blood Pressure 130/69 142/60 Blood Pressure [Right] O2 Sat by Pulse 96 Oximetry 04/07/19 04/07/19 12:23 13:00 Temperature 97.4 F L Pulse Rate 70 Respiratory Rate Blood Pressure 142/60 Blood Pressure [Right] O2 Sat by Pulse Oximetry - General Appearance General appearance: well-developed, well-nourished EENT: ATNC, PERRL, mucous membranes moist Neck: no JVD Respiratory: Present: Clear to Ascultation, Decreased Breath Sounds Cardiology: regular, S1S2 Gastrointestinal: normal, normoactive bowel sounds Integumentary: no rash Neurologic: alert and oriented x3, CN 3-12 intact Psychiatric: mood/affect appropriate - Lab 04/06/19 04:49 04/07/19 10:04 Most recent lab results Calcium 10.9 mg/dL (8.4-10.2) H 04/07/19 10:04 Magnesium 2.20 mg/dL (1.7-2.3) 04/05/19 15:20 - Imaging Chest x-ray: image reviewed (I reviewed CXR with hazy bilateral perihilar opacity) Medications & Allergies - Medications Allergies/Adverse Reactions: Allergies iodine Allergy (Verified 09/18/18 15:29) Hives IVP DYE Allergy (Uncoded 08/31/13 09:00) Hives Home Medications: Home Medications Medication Instructions Recorded Confirmed Last Taken Type Captopril (Nf) [Capoten (Nf)] 25 mg PO BID 05/25/18 04/06/19 04/04/19 08:00 History Cinacalcet HCl [Sensipar] 90 mg PO HS 05/25/18 04/06/19 04/04/19 21:00 History Furosemide [Lasix TAB] 80 mg PO QDAY 05/25/18 04/06/19 04/05/19 08:00 History Hydralazine HCl 50 mg PO Q8H 05/25/18 04/06/19 04/05/19 08:00 History Mycophenolate [Cellcept] 250 mg PO BID 05/25/18 04/06/19 04/05/19 08:00 History NIFEdipine [Nifedipine ER] 60 mg PO BID 05/25/18 04/06/19 04/05/19 08:00 History Pantoprazole [Protonix TAB] 40 mg PO QDAY 05/25/18 04/06/19 04/05/19 08:00 History Potassium Chloride [Klor-Con] 20 meq PO BID 05/25/18 04/06/19 04/05/19 08:00 History Tacrolimus [Prograf] 1 mg PO Q12H 05/25/18 04/06/19 04/05/19 08:00 History Warfarin [Coumadin] 7.5 mg PO QDAY 05/25/18 04/06/19 Unknown History predniSONE [Prednisone] 5 mg PO DAILY 05/25/18 04/06/19 04/05/19 08:00 History Docusate Sodium [Colace CAP] 100 mg PO DAILY 09/18/18 04/06/19 04/05/19 08:00 History Multivitamin [Multiple Vitamins] 1 tab PO DAILY 09/18/18 04/06/19 04/05/19 08:00 History Active Medications: Generic Name Dose Route Start Last Admin Trade Name Freq PRN Reason Stop Dose Admin Acetaminophen 650 mg 04/05/19 22:38 Tylenol PO Q4H PRN Pain MILD(1-3)/Fever >100.5/NAVARRETE Bumetanide 1 mg 04/07/19 10:00 04/07/19 09:44 Bumex IV 1 mg DAILY [facility] Administration Carvedilol 3.125 mg 04/06/19 13:00 04/07/19 09:49 Coreg PO 3.125 mg BID [facility] Administration Cinacalcet 90 mg 04/06/19 22:00 04/07/19 00:35 Sensipar PO 90 mg HS [facility] Administration Docusate Sodium 100 mg 04/06/19 10:00 04/07/19 09:43 Colace PO 100 mg DAILY [facility] Administration Hydralazine HCl 50 mg 04/06/19 12:00 04/07/19 12:23 Apresoline PO Not Given Q8H [facility] Hydromorphone HCl 0.5 mg 04/05/19 22:38 Dilaudid IV Q3H PRN Pain , Severe (7-10) Ceftriaxone Sodium 1 gm in 50 mls @ 100 mls/hr 04/06/19 14:00 04/07/19 10:17 Rocephin/Ns 1 Gm/50 Ml IV 100 mls/hr Q24HR [facility] Administration Metoclopramide HCl 5 mg 04/05/19 22:38 Reglan IV Q6H PRN Nausea And Vomiting Miscellaneous Medication 25 mg 04/05/19 22:30 Captopril (Nf) PO BID [facility] Multivitamins 1 each 04/06/19 10:00 04/07/19 09:42 Theragran Tab PO 1 each DAILY [facility] Administration Mycophenolate Mofetil 750 mg 04/06/19 22:00 04/07/19 10:00 Cellcept PO 750 mg BID [facility] Administration Nifedipine 60 mg 04/05/19 22:30 04/07/19 08:01 Procardia Xl PO 60 mg BID@0800,1700 [facility] Administration Ondansetron HCl 4 mg 04/05/19 22:38 Zofran IV Q8H PRN Nausea And Vomiting Pantoprazole Sodium 40 mg 04/06/19 10:00 04/07/19 09:44 Protonix PO 40 mg QDAY [facility] Administration Prednisone 5 mg 04/06/19 10:00 04/07/19 09:43 Deltasone PO 5 mg DAILY [facility] Administration Sodium Chloride 10 ml 04/06/19 10:00 04/07/19 10:18 Sodium Chloride Flush Syringe 10 Ml IV 10 ml BID [facility] Administration Sodium Chloride 10 ml 04/05/19 22:38 Sodium Chloride Flush Syringe 10 Ml IV PRN PRN LINE FLUSH Tacrolimus 1 mg 04/06/19 19:00 04/07/19 08:00 Prograf PO 1 mg Q12H [facility] Administration Warfarin Sodium 5 mg 04/07/19 17:00 Coumadin PO DAILY@1700 [facility]
[2019-04-07] MEDS ORDERED: COUMADIN PO SCH (17:00)
[2019-04-08 06:37] LABS: INR 3.71 (0.87-1.13)
[2019-04-08] MEDS: PROGRAF PO SCH ×2 (07:52→18:06)
[2019-04-08] MEDS: PROCARDIA XL PO SCH ×2 (07:53→17:12)
[2019-04-08] MEDS: ROCEPHIN/NS 1 GM/50 ML 1 GM/50 ML BAG IV SCH (10:22)
[2019-04-08] MEDS: CELLCEPT PO SCH ×2 (10:22→22:23)
[2019-04-08] MEDS: DELTASONE PO SCH (10:24)
[2019-04-08] MEDS: COREG PO SCH ×2 (10:24→22:23)
[2019-04-08] MEDS: COLACE PO SCH (10:24)
[2019-04-08] MEDS: PROTONIX PO SCH (10:24)
[2019-04-08] MEDS: THERAGRAN Tab PO SCH (10:24)
[2019-04-08] MEDS: BUMEX IV SCH (10:24)
[2019-04-08] MEDS: SODIUM CHLORIDE FLUSH SYRINGE 10 ML IV SCH ×2 (10:25→22:24)
[2019-04-08] MEDS: APRESOLINE PO SCH ×3 (10:25→21:21)
[2019-04-08 10:49] LABS: Calcium 9.8 mg/dL (8.4-10.2)
--- NOTE | 2019-04-08 11:26 | Progress Note ---
Assessment and Plan - Patient Problems (1) Fluid overload Current Visit: Yes Status: Acute Plan to address problem: Patient's chest x-ray shows evidence of mild fluid overload, management of fluid overload per nephrology recommendations. (2) Chronic atrial fibrillation Current Visit: Yes Status: Acute Plan to address problem: Chronic atrial fibrillation on a rate control strategy and oral anticoagulation with warfarin. Subjective Date of service: 04/08/19 Principal diagnosis: acute metabolic encephalopathy, acute on CKD, Interval history: Patient is comfortable in no acute distress. No new cardiac complaints. Objective Vital Signs Temp Pulse Resp BP Pulse Ox 04/08/19 07:37 97.8 F 77 20 190/99 99 04/08/19 01:42 97.4 F L 69 18 137/65 90 04/07/19 22:00 16 04/07/19 20:23 97.4 F L 73 18 146/60 94 04/07/19 16:46 70 138/64 93 04/07/19 13:00 97.4 F L 04/07/19 12:23 70 142/60 04/07/19 12:12 70 142/60 96 - Physical Examination General: No Apparent Distress, Cachectic HEENT: Positive: PERRL Neck: Positive: neck supple Cardiac: Positive: Reg Rate and Rhythm Lungs: Positive: Decreased Breath Sounds Neuro: Positive: Weakness Abdomen: Positive: Soft Skin: Positive: Clear Extremities: Absent: edema - Labs and Meds Coagulation 04/08/19 Range/Units 06:07 PT 36.2 H (12.2-14.9) Sec. INR 3.71 H (0.87-1.13) Comprehensive Metabolic Panel 04/08/19 Range/Units 10:02 Sodium 140 (137-145) mmol/L Potassium 3.4 L (3.6-5.0) mmol/L Chloride 104.3 (98-107) mmol/L Carbon Dioxide 19 L (22-30) mmol/L BUN 79 H (9-20) mg/dL Creatinine 3.9 H (0.8-1.5) mg/dL Glucose 138 H (75-100) mg/dL Calcium 9.8 (8.4-10.2) mg/dL - Imaging and Cardiology EKG: report reviewed (Afib LVH)
[2019-04-08] MEDS ORDERED: VANCOMYCIN 500 MG in NACL 0.9% 100 ML IV ONE (16:00)
--- NOTE | 2019-04-08 16:07 | Progress Note ---
Assessment and Plan 68-year-old AAM with pmh of hypertension, A. fib on anticoagulation, renal insufficiency, status post renal transplant, in the past has been on graft rejection therapy, uncertain if on antirejection meds at this time, malnutrition, left upper extremity fistula presents to ED for evaluation of worsening renal insufficiency as per primary care doctor. However, the patient is altered. He cannot tell why he is here. He cannot answer whether or not he is having any pain. He does not know what medications he is taking. We have attempted to contact the patient's or collateral information, and left a voicemail for call back, as nobody has answered. In the emergency room, the patient is sleepy but arousable, moving 4 extremities and protecting his airway. No additional history is available at this time. - Acute on chronic renal failure Status post renal transplant Discussed with siderographer and who intimated that the transplant unit at [place] was aware that patient's was undergoing rejection High biopsy of the kidney that showed interstitial changes. Recommended proceeding with renal replacement therapy when appropriate - Acute metabolic encephalopathy Due to renal failure and other comorbid conditions Continue treatment of underlying factorsl factors - Atrial fibrillation Rate controlled Anticoagulated with Coumadin - UTI Urine culture obtained No organism grown. Contaminated With IV Rocephin - GERD Continue PPI - Acute on chronic combined systolic and diastolic heart failure Diuresis, beta emily, we will hold ACEI because of acute on chronic renal failure DVT prophylaxis already on Coumadin CODE STATUS patient is full code Time spent 32 minutes Subjective Date of service: 04/08/19 Principal diagnosis: acute metabolic encephalopathy, acute on CKD, Interval history: Patient lying flat in bed in no obvious distress. Denies any chest pain. No fever. Objective - Exam Narrative Exam: Constitutional: Well-nourished well-developed. In no distress Head: Normocephalic atraumatic Eyes: Pupils are equal round and reactive to light Nose: No enlarged turbinates, no septal deviation. Mouth: Moist mucous membranes. Neck: Supple no thyromegaly. No bruit. No JVD Heart: Regular rate and rhythm, S1-S2 normal. No rubs murmurs or gallop Lungs: Please breath sounds bilaterally. no rales or rhonchi Abdomen: Soft, nontender. Bowel sound are present. Extremities: No edema, no cyanosis, no clubbing. Neuro: Alert oriented Oriented x3. No focal sensory or motor deficit. Skin: No rashes or hyperpigmented spots Musculoskeletal system: No joint pain or swelling Hematological: No petechia or subcutanous hemorrhages. Immunological: No multiple septic spots on the skin Lymphatic: No generalized lymphadenopathy Psychiatry: Euthymic. Calm. - Constitutional Vitals: Vital Signs - 12hr 04/08/19 04/08/19 07:37 14:01 Temperature 97.8 F 98.0 F Pulse Rate 77 Respiratory 20 20 Rate Blood Pressure 190/99 164/82 O2 Sat by Pulse 99 Oximetry - Labs CBC & Chem 7: 04/06/19 04:49 04/08/19 10:02 Labs: Abnormal lab results 04/08/19 04/08/19 Range/Units 06:07 10:02 PT 36.2 H (12.2-14.9) Sec. INR 3.71 H (0.87-1.13) Potassium 3.4 L (3.6-5.0) mmol/L Carbon Dioxide 19 L (22-30) mmol/L BUN 79 H (9-20) mg/dL Creatinine 3.9 H (0.8-1.5) mg/dL Glucose 138 H (75-100) mg/dL
[2019-04-08] MEDS ORDERED: COUMADIN NO DOSE TODAY PO ONE (17:00)
--- NOTE | 2019-04-08 17:13 | Progress Note ---
Assessment and Plan - Patient Problems (1) Acute on chronic renal failure Current Visit: Yes Status: Acute Plan to address problem: Acute on chronic renal failure Creatinine has been worsening over the past year Apparently creatinine was 2.5 in May 2018 and then worsened to 3.1 in November of this year subsequently 3.8 early this month I reviewed urinalysis with isosthenuria possible tubular injury proteinuria noted with few red blood cells I reviewed renal ultrasound which showed normal kidney transplant allograft with good vascular supply received diuretics Bumex 1 mg daily Strict input and output Check tacrolimus level PLEASE AVOID SUPRATHERAPEUTIC LEVELS OF VANCOMYCIN VANCOMYCIN TROUGH OF 16 TODAY AND AN ADDITIONAL DOSE WAS ORDERED. We'll need outpatient follow-up initiation of dialysis likely out patient's only if patient has worsening shortness of breath or deterioration of his kidney function (2) CHF (congestive heart failure) Current Visit: No Status: Acute Qualifiers: Heart failure type: diastolic Heart failure chronicity: chronic Qualified Code(s): I50.32 - Chronic diastolic (congestive) heart failure Plan to address problem: Congestive heart failure Chest x-ray with evidence of pulmonary congestion does have ankle edema. Received Bumex 1 mg daily for now Low-salt diet reviewed echocardiogram severe pulmonary hypertension with preserved ejection fraction (3) Renal transplant failure and rejection Current Visit: Yes Status: Acute Plan to address problem: Renal transplant failure Unclear if there is evidence of rejection Also unclear if the kidney has been biopsy in the past by transplant nephrology We'll need to discuss with patient's primary transplant Fin[facility] possible nephrosclerosis versus rejection We'll need to determine if he needs to be transferred to [place] for further measures and treatment of a transplant versus dialysis if his renal function worsens Check tacrolimus level I have called the kidney transplant clinic at [facility] Discussed with the goal for tacrolimus 3-5 (4) HTN (hypertension) Current Visit: Yes Status: Chronic Qualifiers: Hypertension type: essential hypertension Qualified Code(s): I10 - Essential (primary) hypertension Plan to address problem: Hypertension uncontrolled Resume home medications list obtained from clinic Subjective Principal diagnosis: acute metabolic encephalopathy, acute on CKD, Interval history: 68-year-old gentleman with medical history significant for hypertension,congestive heart failure , Previous ESRD with Left arm AVF follows at [facility] follows with Dr. dial, Kidney transplant january 2015 now with worsening renal function , per office records creatinine was 3. 8 on 03/14 , creatinine was 2. 49, 05/2018 , creatinine was 3.11 on December 01 2018. patient seen today He denies any orthopnea or pnd Denies any fevers or chills. Objective - Vital Signs Vital signs: Vital Signs - 12hr 04/08/19 04/08/19 07:37 14:01 Temperature 97.8 F 98.0 F Pulse Rate 77 Respiratory 20 20 Rate Blood Pressure 190/99 164/82 O2 Sat by Pulse 99 Oximetry - General Appearance General appearance: well-developed, well-nourished EENT: ATNC, PERRL Neck: no JVD Respiratory: Present: Clear to Ascultation Cardiology: regular, S1S2 Gastrointestinal: normal, normoactive bowel sounds Integumentary: no rash Neurologic: alert and oriented x3, CN 3-12 intact Musculoskeletal: deferred - Lab 04/06/19 04:49 04/08/19 10:02 Most recent lab results Calcium 9.8 mg/dL (8.4-10.2) 04/08/19 10:02 Magnesium 2.20 mg/dL (1.7-2.3) 04/05/19 15:20 - Imaging Chest x-ray: image reviewed (I reviewed CXR with patchy opacities. ) Medications & Allergies - Medications Allergies/Adverse Reactions: Allergies iodine Allergy (Verified 09/18/18 15:29) Hives IVP DYE Allergy (Uncoded 08/31/13 09:00) Hives Home Medications: Home Medications Medication Instructions Recorded Confirmed Last Taken Type Captopril (Nf) [Capoten (Nf)] 25 mg PO BID 05/25/18 04/06/19 04/04/19 08:00 His tory Cinacalcet HCl [Sensipar] 90 mg PO HS 05/25/18 04/06/19 04/04/19 21:00 History Furosemide [Lasix TAB] 80 mg PO QDAY 05/25/18 04/06/19 04/05/19 08:00 History Hydralazine HCl 50 mg PO Q8H 05/25/18 04/06/19 04/05/19 08:00 History Mycophenolate [Cellcept] 250 mg PO BID 05/25/18 04/06/19 04/05/19 08:00 History NIFEdipine [Nifedipine ER] 60 mg PO BID 05/25/18 04/06/19 04/05/19 08:00 History Pantoprazole [Protonix TAB] 40 mg PO QDAY 05/25/18 04/06/19 04/05/19 08:00 History Potassium Chloride [Klor-Con] 20 meq PO BID 05/25/18 04/06/19 04/05/19 08:00 History Tacrolimus [Prograf] 1 mg PO Q12H 05/25/18 04/06/19 04/05/19 08:00 History Warfarin [Coumadin] 7.5 mg PO QDAY 05/25/18 04/06/19 Unknown History predniSONE [Prednisone] 5 mg PO DAILY 05/25/18 04/06/19 04/05/19 08:00 History Docusate Sodium [Colace CAP] 100 mg PO DAILY 09/18/18 04/06/19 04/05/19 08:00 History Multivitamin [Multiple Vitamins] 1 tab PO DAILY 09/18/18 04/06/19 04/05/19 08:00 History Active Medications: Generic Name Dose Route Start Last Admin Trade Name Freq PRN Reason Stop Dose Admin Acetaminophen 650 mg 04/05/19 22:38 Tylenol PO Q4H PRN Pain MILD(1-3)/Fever >100.5/NAVARRETE Bumetanide 1 mg 04/07/19 10:00 04/08/19 10:24 Bumex IV 1 mg DAILY MASON Administration Carvedilol 3.125 mg 04/06/19 13:00 04/08/19 10:24 Coreg PO 3.125 mg BID MASON Administration Cinacalcet 90 mg 04/06/19 22:00 04/07/19 22:05 Sensipar PO 90 mg HS MASON Administration Docusate Sodium 100 mg 04/06/19 10:00 04/08/19 10:24 Colace PO 100 mg DAILY MASON Administration Hydralazine HCl 50 mg 04/06/19 12:00 04/08/19 14:35 Apresoline PO 50 mg Q8H MASON Administration Hydromorphone HCl 0.5 mg 04/05/19 22:38 Dilaudid IV Q3H PRN Pain , Severe (7-10) Ceftriaxone Sodium 1 gm in 50 mls @ 100 mls/hr 04/06/19 14:00 04/08/19 10:22 Rocephin/Ns 1 Gm/50 Ml IV 100 mls/hr Q24HR MASON Administration Vancomycin HCl 500 mg/ Sodium 110 mls @ 66.667 mls/hr 04/08/19 16:00 Chloride IV 04/08/19 17:38 ONCE ONE Metoclopramide HCl 5 mg 04/05/19 22:38 Reglan IV Q6H PRN Nausea And Vomiting Miscellaneous Medication 25 mg 04/05/19 22:30 Captopril (Nf) PO BID MASON Multivitamins 1 each 04/06/19 10:00 04/08/19 10:24 Theragran Tab PO 1 each DAILY MASON Administration Mycophenolate Mofetil 750 mg 04/06/19 22:00 04/08/19 10:22 Cellcept PO 750 mg BID MASON Administration Nifedipine 60 mg 04/05/19 22:30 04/08/19 07:53 Procardia Xl PO 60 mg BID@0800,1700 MASON Administration Ondansetron HCl 4 mg 04/05/19 22:38 Zofran IV Q8H PRN Nausea And Vomiting Pantoprazole Sodium 40 mg 04/06/19 10:00 04/08/19 10:24 Protonix PO 40 mg QDAY MASON Administration Prednisone 5 mg 04/06/19 10:00 04/08/19 10:24 Deltasone PO 5 mg DAILY MASON Administration Sodium Chloride 10 ml 04/06/19 10:00 04/08/19 10:25 Sodium Chloride Flush Syringe 10 Ml IV 10 ml BID MASON Administration Sodium Chloride 10 ml 04/05/19 22:38 Sodium Chloride Flush Syringe 10 Ml IV PRN PRN LINE FLUSH Tacrolimus 1 mg 04/06/19 19:00 04/08/19 07:52 Prograf PO 1 mg Q12H MASON Administration
--- NOTE | 2019-04-08 17:48 | XRay Report ---
Chest single view INDICATION: Dyspnea IMPRESSION: Severe bilateral cardiopulmonary edema with pleural effusions. Cardiomegaly Signer Name: Robert Yousif MD Signed: 04/08/2019 5:44 PM Workstation Name: [id number]
[2019-04-08] MEDS: SENSIPAR PO SCH (22:22)
[2019-04-09] MEDS ORDERED: APRESOLINE IV PRN (02:41)
[2019-04-09] MEDS: APRESOLINE PO SCH ×3 (05:00→20:39)
[2019-04-09] MEDS: PROGRAF PO SCH ×2 (06:17→18:03)
[2019-04-09 08:48] LABS: INR 3.44 (0.87-1.13)
--- NOTE | 2019-04-09 09:53 | Progress Note ---
Assessment and Plan Assessment and plan: 68-year-old AAM with pmh of hypertension, A. fib on anticoagulation, renal insufficiency, status post renal transplant, in the past has been on graft rejection therapy, uncertain if on antirejection meds at this time, malnutrition, left upper extremity fistula presents to ED for evaluation of worsening renal insufficiency as per primary care doctor. However, the patient is altered. He cannot tell why he is here. He cannot answer whether or not he is having any pain. He does not know what medications he is taking. We have attempted to contact the patient's or collateral information, and left a voicemail for call back, as nobody has answered. In the emergency room, the patient is sleepy but arousable, moving 4 extremities and protecting his airway. No additional history is available at this time. - Acute on chronic renal failure Status post renal transplant Discussed with general milling superintendent and who intimated that the transplant unit at [place] was aware that patient's was undergoing rejection High biopsy of the kidney that showed interstitial changes. Recommended proceeding with renal replacement therapy when appropriate - Acute metabolic encephalopathy Due to renal failure and other comorbid conditions Continue treatment of underlying factors factors - Atrial fibrillation Rate controlled Anticoagulated with Coumadin - UTI Urine culture obtained Blood cx yielded gram positive cocci in pairs for which pt was commence on Vanc and Rocephin vanc has been discontinued, [place] considering renal transplant Discussed with Pharmacy, start renally dosed po augmenting till ID eval culture showed E Fecalis. Will awit ID final input - GERD Continue PPI - Acute on chronic combined systolic and diastolic heart failure Diuresis, beta emily, we will hold ACEI because of acute on chronic renal failure DVT prophylaxis already on Coumadin CODE STATUS patient is full code Anticipate discharge in am History Interval history: Patient seen and examined, complaints of generalized weakness, no other major issues reported. Tolerating meds and diet Hospitalist Physical - Physical exam Narrative exam: Constitutional: Well-nourished well-developed. In no distress, generalized weakness Head: Normocephalic atraumatic Eyes: Pupils are equal round and reactive to light Nose: No enlarged turbinates, no septal deviation. Mouth: Moist mucous membranes. Neck: Supple no thyromegaly. No bruit. No JVD Heart: Regular rate and rhythm, S1-S2 normal. No rubs murmurs or gallop Lungs: Please breath sounds bilaterally. no rales or rhonchi Abdomen: Soft, nontender. Bowel sound are present. Extremities: No edema, no cyanosis, no clubbing. Neuro: Alert oriented Oriented x3. No focal sensory or motor deficit. Skin: No rashes or hyperpigmented spots Musculoskeletal system: No joint pain or swelling Hematological: No petechia or subcutanous hemorrhages. Immunological: No multiple septic spots on the skin Lymphatic: No generalized lymphadenopathy Psychiatry: Euthymic. Calm. - Constitutional Vitals: Temp Pulse Resp BP Pulse Ox 97.4 F L 54 L 18 126/59 98 04/09/19 07:26 04/09/19 07:26 04/09/19 07:26 04/09/19 07:26 04/09/19 07:26 General appearance: Present: no acute distress Results - Labs CBC & Chem 7: 04/06/19 04:49 04/09/19 09:30 Labs: Laboratory Last Values WBC 9.5 K/mm3 (4.5-11.0) 04/06/19 04:49 RBC 2.73 M/mm3 (3.65-5.03) L 04/06/19 04:49 Hgb 7.9 gm/dl (11.8-15.2) L 04/06/19 04:49 Hct 25.0 % (35.5-45.6) L 04/06/19 04:49 MCV 91 fl (84-94) 04/06/19 04:49 MCH 29 pg (28-32) 04/06/19 04:49 MCHC 32 % (32-34) 04/06/19 04:49 RDW 16.7 % (13.2-15.2) H 04/06/19 04:49 Plt Count 206 K/mm3 (140-440) 04/06/19 04:49 Lymph % (Auto) 3.0 % (13.4-35.0) L 04/06/19 04:49 [place] % (Auto) 6.3 % (0.0-7.3) 04/06/19 04:49 Eos % (Auto) 0.3 % (0.0-4.3) 04/06/19 04:49 Baso % (Auto) 1.3 % (0.0-1.8) 04/06/19 04:49 Lymph # 0.3 K/mm3 (1.2-5.4) L 04/06/19 04:49 [place] # 0.6 K/mm3 (0.0-0.8) 04/06/19 04:49 Eos # 0.0 K/mm3 (0.0-0.4) 04/06/19 04:49 Baso # 0.1 K/mm3 (0.0-0.1) 04/06/19 04:49 Seg Neutrophils % 89.1 % (40.0-70.0) H 04/06/19 04:49 Seg Neutrophils # 8.5 K/mm3 (1.8-7.7) H 04/06/19 04:49 PT 34.1 Sec. (12.2-14.9) H 04/09/19 08:08 INR 3.44 (0.87-1.13) H 04/09/19 08:08 APTT 65.1 Sec. (24.2-36.6) H* 04/05/19 15:20 Sodium 140 mmol/L (137-145) 04/08/19 10:02 Potassium 3.4 mmol/L (3.6-5.0) L 04/08/19 10:02 Chloride 104.3 mmol/L (98-107) 04/08/19 10:02 Carbon Dioxide 19 mmol/L (22-30) L 04/08/19 10:02 20 mmol/L 04/08/19 10:02 BUN 79 mg/dL (9-20) H 04/08/19 10:02 3.9 mg/dL (0.8-1.5) H 04/08/19 10:02 Estimated GFR 19 ml/min 04/08/19 10:02 20 % 04/08/19 10:02 Glucose 138 mg/dL (75-100) H 04/08/19 10:02 5.6 % (4-6) 04/05/19 13:40 Lactic Acid 0.80 mmol/L (0.7-2.0) 04/05/19 15:20 Calcium 9.8 mg/dL (8.4-10.2) 04/08/19 10:02 Magnesium 2.20 mg/dL (1.7-2.3) 04/05/19 15:20 0.40 mg/dL (0.1-1.2) 04/06/19 04:49 AST 31 units/L (5-40) 04/06/19 04:49 ALT 12 units/L (7-56) 04/06/19 04:49 87 units/L (35-129) 04/06/19 04:49 18.0 umol/L (25-60) L 04/05/19 15:20 22 units/L (55-170) L 04/05/19 15:20 NT-Pro-B Natriuret Pep > 43482 pg/mL (0-900) H 04/05/19 15:38 6.3 g/dL (6.3-8.2) 04/06/19 04:49 2.9 g/dL (3.9-5) L 04/06/19 04:49 0.9 % 04/06/19 04:49 TSH 3.670 mlU/mL (0.270-4.200) 04/05/19 15:20 Yellow (Yellow) 04/05/19 19:58 Slightly cloudy (Clear) 04/05/19 19:58 6.0 (5.0-7.0) 04/05/19 19:58 Ur Specific [place] 1.010 (1.003-1.030) 04/05/19 19:58 100 mg/dl mg/dL (Negative) 04/05/19 19:58 Negative mg/dL (Negative) 04/05/19 19:58 Negative mg/dL (Negative) 04/05/19 19:58 Small (Negative) A 04/05/19 19:58 Negative (Negative) 04/05/19 19:58 Negative (Negative) 04/05/19 19:58 < 2.0 mg/dL (<2.0) 04/05/19 19:58 Ur Leukocyte Esterase Large (Negative) 04/05/19 19:58 28.0 /HPF (0.0-6.0) H 04/05/19 19:58 5.0 /HPF (0.0-6.0) 04/05/19 19:58 U Epithel Cells (Auto) < 1.0 /HPF (0-13.0) 04/05/19 19:58 Few /HPF 04/05/19 19:58 Random Vancomycin 16.2 ug/mL (0-40.0) 04/08/19 13:27 Salicylates < 0.3 mg/dL (2.8-20.0) L 04/05/19 15:20 Acetaminophen < 5.0 ug/mL (10.0-30.0) L 04/05/19 15:20 Plasma/Serum Alcohol < 0.01 % (0-0.07) 04/05/19 15:20 Immunofix Electrophor see below 04/05/19 17:17 Active Medications - Current Medications Current Medications: Generic Name Dose Route Start Last Admin Trade Name Freq PRN Reason Stop Dose Admin Acetaminophen 650 mg 04/05/19 22:38 Tylenol PO Q4H PRN Pain MILD(1-3)/Fever >100.5/NAVARRETE Bumetanide 1 mg 04/07/19 10:00 04/08/19 10:24 Bumex IV 1 mg DAILY MASON Administration Carvedilol 3.125 mg 04/06/19 13:00 04/08/19 22:23 Coreg PO 3.125 mg BID MASON Administration Cinacalcet 90 mg 04/06/19 22:00 04/08/19 22:22 Sensipar PO 90 mg HS MASON Administration Docusate Sodium 100 mg 04/06/19 10:00 04/08/19 10:24 Colace PO 100 mg DAILY MASON Administration Hydralazine HCl 50 mg 04/06/19 12:00 04/09/19 05:00 Apresoline PO 50 mg Q8H MASON Administration Hydralazine HCl 10 mg 04/09/19 02:41 04/09/19 02:56 Apresoline IV 10 mg Q4HR PRN Administration Blood Pressure Hydromorphone HCl 0.5 mg 04/05/19 22:38 Dilaudid IV Q3H PRN Pain , Severe (7-10) Ceftriaxone Sodium 1 gm in 50 mls @ 100 mls/hr 04/06/19 14:00 04/08/19 10:22 Rocephin/Ns 1 Gm/50 Ml IV 100 mls/hr Q24HR MASON Administration Metoclopramide HCl 5 mg 04/05/19 22:38 Reglan IV Q6H PRN Nausea And Vomiting Miscellaneous Medication 25 mg 04/05/19 22:30 Captopril (Nf) PO BID MASON Multivitamins 1 each 04/06/19 10:00 04/08/19 10:24 Theragran Tab PO 1 each DAILY MASON Administration Mycophenolate Mofetil 750 mg 04/06/19 22:00 04/08/19 22:23 Cellcept PO 750 mg BID MASON Administration Nifedipine 60 mg 04/05/19 22:30 04/08/19 17:12 Procardia Xl PO 60 mg BID@0800,1700 MASON Administration Ondansetron HCl 4 mg 04/05/19 22:38 Zofran IV Q8H PRN Nausea And Vomiting Pantoprazole Sodium 40 mg 04/06/19 10:00 04/08/19 10:24 Protonix PO 40 mg QDAY MASON Administration Prednisone 5 mg 04/06/19 10:00 04/08/19 10:24 Deltasone PO 5 mg DAILY MASON Administration Sodium Chloride 10 ml 04/06/19 10:00 04/08/19 22:24 Sodium Chloride Flush Syringe 10 Ml IV 10 ml BID MASON Administration Sodium Chloride 10 ml 04/05/19 22:38 Sodium Chloride Flush Syringe 10 Ml IV PRN PRN LINE FLUSH Tacrolimus 1 mg 04/06/19 19:00 04/09/19 06:17 Prograf PO 1 mg Q12H MASON Administration Nutrition/Malnutrition Assess - Dietary Evaluation Nutrition/Malnutrition Findings: Nutrition Notes Start: 04/06/19 11:57 Freq: Status: Active Protocol: Document 04/06/19 12:00 LM (Rec: 04/06/19 12:38 LM [email or web address]) Nutrition Notes Need for Assessment generated from: Education,Low BMI Initial or Follow up Assessment Current Diagnosis Acute Kidney Injury,CKD(stage I-IV),Hypertension,Heart Failure Other Pertinent Diagnosis renal transplant failure Current Diet Renal diet Labs/Tests BUN 78 Cr 4.0 BG 109 Pertinent Medications Coumadin Height 5 ft 7 in Weight 49 kg Usual Body Weight 52 kg [place] Body Weight (kg) 67.27 BMI 16.9 Weight change and time frame 3-4 lb in 1.5 weeks Subjective/Other Information Screen for low BMI and Coumadin education. Pt ate 100 % of his breakfast this AM. Pt stated he lost 3-4 lb in 1.5 weeks. Pt stated his UBW is 114 lb. Noticed muscle wasting in wrists and legs. Burn Absent Trauma Absent Minimum of two criteria Yes Interpretation of Weight Loss (non- 1-2% in 1 week severe) Muscle Mass Mild Depletion (non-severe) #2 Nutrition Diagnosis Food and nutrition-related knowledge deficit Etiology No prior nutrition related coumadin/vitamin K education As Evidenced by Signs and Symptoms Pt statement of needing nutrition related coumadin/ vitamin K education #1 Nutrition Diagnosis Malnutrition Etiology CKD, chronic illness As Evidenced by Signs and Symptoms Muscle wasting of wrists, 3% weight loss in 1 week Is patient on ventilator? No Is Patient Ambulatory and/or Out of Bed No REE-([place] Jeor-confined to bed) 1468.296 Kcal/Kg value to use for calculation 40 Approximate Energy Requirements Using 1960 kcal/Kg Calculation Used for Recommendations Kcal/kg Additional Notes Protein: 59-74g (1.2-1.5g/kg) Fluids: 1 ml/kcal or per MD Nutrition Intervention Change Diet Order: Continue renal diet Add Supplement/Snack (indicate name/kcal Nepro vanilla BID /protein ) Provides kCal: 425 Provides Protein (gm) 19 Teaching Recipient Patient Learning Readiness Good Teaching Methods Discussion,Handout Response to Teaching Verbalize understanding Education Handouts Provided Vitamin K and medications Barriers to Learning No Barriers RD phone number provided Yes Patient aware of follow up options Yes Goal #1 Meet at least 80% of energy and protein needs Goal #2 Weight maintenance and/or gain Anticipated Discharge Needs: Renal diet Follow-Up By: 04/10/19 Additional Comments F/U for PO/ONS intakes
[2019-04-09 10:07] LABS: Calcium 9.6 mg/dL (8.4-10.2)
--- NOTE | 2019-04-09 10:25 | Consultation ---
History of Present Illness - Reason for Consult Consult date: 04/09/19 Bacteremia Requesting physician: JULIO MONTERO - History of Present Illness This patient is a 68-year old male with a past medical history of hypertension, A fib on anticoagulation, renal insufficiency, s/p kidney transplant in 2014, currently on immnosuppresent therapy (Celcept and Tacrolimus), left upper extremity fistula that presents to the ED on 04/05/19 for evaluation of worsening renal insufficiency as per primary care doctor and altered mental sta tus. On admission WBC 8.4, Creatinine 4.1, lactic Acid 0.8, Temperature 98.1, HR 60. UA with pyuria. WBC 28, large LE. Blood cultures grew E. Faecalis.. Head CT shows no acute hemorrhage or other acute interracial abnormality. Chronic microvasular angiopathic change. Chest xray shows severe bilateral cardiopulmonary edema with pleural effusions Renal ultrasound shows the renal transplant with no cystic or solid renal masses. No hydronephrosis or obstruction. The renal right kidney may be hydronephrotic. Review of Systems: General: no fever, no chills, nightsweats, unintentional weight change, or change in appetite Cutaneous: no rash, pruritus Head: no headaches or injury Eyes: no changes in vision, eye pain, double vision Ears: no ear pain, ear discharge, ringing or hearing loss Nose: no nose bleeding, stuffiness Mouth & throat: no bleeding gums, no horseness, no dental problems, or swollen glands Neck: no pain, node enlargement/lumps, tyroid enlargement or tenderness Respiratory: no cough, wheezing, sputum, hemoptysis, pleuritic chest pain Cardiovascular: no chest pain, leg edema, cyanosis, ROBISON, orthopnea Musculoskeletal:+ back pain., no decreased joint motion, bone or joint pain, joint swelling, Gastrointestinal: no nausea, vomiting, hematemesis, diarrhea, constipation, melena, bright red blood in stools, fecal incontinence, jaundice. +uterine contractions Genitourinary/Reproductive: no frequent urination, dysuria, hematuria, incontinence + condom cath Neurogical: no seizures, no headaches, no weakness, no paresthesias, no loss of speech or vision; no memory loss, no vertigo, no tremors, no numbness Psychiatric: stable mood; no excessive anxiety, sadness or moodiness Past History Past Medical History: atrial fib, hypertension, renal failure Medications and Allergies Allergies Allergy/AdvReac Type Severity Reaction Status Date / Time iodine Allergy Hives Verified 09/18/18 15:29 IVP DYE Allergy Hives Uncoded 08/31/13 09:00 Home Medications Medication Instructions Recorded Confirmed Last Taken Type Captopril (Nf) [Capoten (Nf)] 25 mg PO BID 05/25/18 04/06/19 04/04/19 08:00 Hist ory Cinacalcet HCl [Sensipar] 90 mg PO HS 05/25/18 04/06/19 04/04/19 21:00 History Furosemide [Lasix TAB] 80 mg PO QDAY 05/25/18 04/06/19 04/05/19 08:00 History Hydralazine HCl 50 mg PO Q8H 05/25/18 04/06/19 04/05/19 08:00 History Mycophenolate [Cellcept] 250 mg PO BID 05/25/18 04/06/19 04/05/19 08:00 History NIFEdipine [Nifedipine ER] 60 mg PO BID 05/25/18 04/06/19 04/05/19 08:00 History Pantoprazole [Protonix TAB] 40 mg PO QDAY 05/25/18 04/06/19 04/05/19 08:00 History Potassium Chloride [Klor-Con] 20 meq PO BID 05/25/18 04/06/19 04/05/19 08:00 History Tacrolimus [Prograf] 1 mg PO Q12H 05/25/18 04/06/19 04/05/19 08:00 History Warfarin [Coumadin] 7.5 mg PO QDAY 05/25/18 04/06/19 Unknown History predniSONE [Prednisone] 5 mg PO DAILY 05/25/18 04/06/19 04/05/19 08:00 History Docusate Sodium [Colace CAP] 100 mg PO DAILY 09/18/18 04/06/19 04/05/19 08:00 History Multivitamin [Multiple Vitamins] 1 tab PO DAILY 09/18/18 04/06/19 04/05/19 08:00 History Active Meds: Active Medications Acetaminophen (Tylenol) 650 mg PO Q4H PRN PRN Reason: Pain MILD(1-3)/Fever >100.5/NAVARRETE Bumetanide (Bumex) 1 mg IV DAILY [facility] Last Admin: 04/08/19 10:24 Dose: 1 mg Documented by: Carvedilol (Coreg) 3.125 mg PO BID [facility] Last Admin: 04/08/19 22:23 Dose: 3.125 mg Documented by: Cinacalcet (Sensipar) 90 mg PO HS [facility] Last Admin: 04/08/19 22:22 Dose: 90 mg Documented by: Docusate Sodium (Colace) 100 mg PO DAILY [facility] Last Admin: 04/08/19 10:24 Dose: 100 mg Documented by: Hydralazine HCl (Apresoline) 50 mg PO Q8H [facility] Last Admin: 04/09/19 05:00 Dose: 50 mg Documented by: Hydralazine HCl (Apresoline) 10 mg IV Q4HR PRN PRN Reason: Blood Pressure Last Admin: 04/09/19 02:56 Dose: 10 mg Documented by: Hydromorphone HCl (Dilaudid) 0.5 mg IV Q3H PRN PRN Reason: Pain , Severe (7-10) Ceftriaxone Sodium (Rocephin/Ns 1 Gm/50 Ml) 1 gm in 50 mls @ 100 mls/hr IV Q24HR [facility] Last Admin: 04/08/19 10:22 Dose: 100 mls/hr Documented by: Metoclopramide HCl (Reglan) 5 mg IV Q6H PRN PRN Reason: Nausea And Vomiting Miscellaneous Medication (Captopril (Nf)) 25 mg PO BID [facility] Multivitamins (Theragran Tab) 1 each PO DAILY [facility] Last Admin: 04/08/19 10:24 Dose: 1 each Documented by: Mycophenolate Mofetil (Cellcept) 750 mg PO BID [facility] Last Admin: 04/08/19 22:23 Dose: 750 mg Documented by: Nifedipine (Procardia Xl) 60 mg PO BID@0800,1700 [facility] Last Admin: 04/08/19 17:12 Dose: 60 mg Documented by: Ondansetron HCl (Zofran) 4 mg IV Q8H PRN PRN Reason: Nausea And Vomiting Pantoprazole Sodium (Protonix) 40 mg PO QDAY [facility] Last Admin: 04/08/19 10:24 Dose: 40 mg Documented by: Prednisone (Deltasone) 5 mg PO DAILY [facility] Last Admin: 04/08/19 10:24 Dose: 5 mg Documented by: Sodium Chloride (Sodium Chloride Flush Syringe 10 Ml) 10 ml IV BID [facility] Last Admin: 04/08/19 22:24 Dose: 10 ml Documented by: Sodium Chloride (Sodium Chloride Flush Syringe 10 Ml) 10 ml IV PRN PRN PRN Reason: LINE FLUSH Tacrolimus (Prograf) 1 mg PO Q12H [facility] Last Admin: 04/09/19 06:17 Dose: 1 mg Documented by: Physical Examination - Physical Exam Narrative exam: Constitutional: Alert, cooperative. No acute distress Head, Ears, Nose: Normocephalic, atraumatic. External ears, nose normal Eyes: Conjunctivae/corneas clear. No icterus. No ptosis. Neck: Supple, no meningeal signs Oral: dentition fair. No thrush Cardiovascular: S1, S2 normal. Respiratory: Good air entry, clear to auscultation bilaterally GI: Soft, non-tender; bowel sounds normal. No peritoneal signs Musculoskeletal: No pedal edema, no cyanosis., Left arm edematous. Skin: No rash or abscess. Hem/Lymphatic: No palpable cervical or supraclavicular nodes. No lymphangitis Psych: Mood ok. Affect normal Neurological: Awake, alert, oriented. Left AV fistula. +thrill - Constitutional Vitals: Vital Signs Temp Pulse Resp BP Pulse Ox 97.4 F L 54 L 18 126/59 98 04/09/19 07:26 04/09/19 07:26 04/09/19 07:26 04/09/19 07:26 04/09/19 07:26 Temperature -Last 24 Hours Temperature 97.4 F Temperature 97.6 F Temperature 97.5 F Temperature 98.0 F Results - Labs CBC & Chem 7: 04/06/19 04:49 04/09/19 09:30 Labs: Abnormal lab results 04/08/19 04/09/19 04/09/19 Range/Units 10:02 08:08 09:30 PT 34.1 H (12.2-14.9) Sec. INR 3.44 H (0.87-1.13) Potassium 3.4 L 3.1 L (3.6-5.0) mmol/L Chloride 107.8 H (98-107) mmol/L Carbon Dioxide 19 L 21 L (22-30) mmol/L BUN 79 H 77 H (9-20) mg/dL Creatinine 3.9 H 3.8 H (0.8-1.5) mg/dL Glucose 138 H 107 H (75-100) mg/dL - Imaging and Cardiology Chest x-ray: report reviewed ( severe bilateral cardiopulmonary edema with pl eural effusions ) CT Scan - head: report reviewed (no acute hemorrhage or other acute intracranial abnormality. Chronic microvasular angiopathic change. ) Assessment and Plan Renal ultrasound: The renal transplant measures 9 cm in length. It shows good cortical thickness of normal echogenicity. No cystic or solid renal masses. There is no hydronephrosis or obstruction. There is good arterial flow to the right kidney with no definite evidence for renal artery occlusion. The [place] right kidney measures 6.9 cm in length and may be hydronephrotic. Cultures: 04/05/19 Blood: Enterococcus faecalis, 4 out of 4 bottles, Hussein susceptible 04/05/19 Urine: 10-100 K of mixed culture > 2 organisms A/P: 68-year old male with a past medical history of hypertension, A fib on anticoagulation, renal insufficiency, s/p kidney transplant in 2014, (currently on immnosuppresent therapy Celcept and Tacrolimus), left upper extremity fistula that presents to the ED on 04/05/19 for evaluation of worsening renal insufficiency as per primary care doctor and altered mental status. Admitted with: 1. E. faecalis Bacteremia: 4 out of 4 bottles. Immunocompromised host,. Kidney transplant 2014..Source most likely UTI. UA with pyuria. Urine culture mixed. No fever . No leukocytosis. Left arm AVF. No central lines. No skin wounds TTE shows no valvular vegetation. Currently being treated with Ceftriaxone. 2. UTI: UA with pyuria.. WBC 28, large LE. Urine culture shows mixed culture of > 2 organisms. 3. Renal transplant failure and rejection: per nephrology unclear if there is evidence of rejection. Possible nephrosclerosis vs rejection. Possible transfer to [place] for further treatment . Nephrology following. 4. Acute on chronic Renal failure: Worsening creatinine over the past year. creatinine was 2.5 in May 2018 and then worsened to 3.1 in November of this year. Admission creatinine 4.0 ---> 3.8. 5. Acute Encephalopathy : Improved. Recommendations: -Repeat Blood cultures ordered to ensure clearance -Start Ampicillin 2 gm IV every 8 hours ( renally adjusted CrCl 17) - duration to be determined -Discontinue Ceftriaxone - If repeat BC are positive - will request [facility] M: [phone] O:[phone]
[2019-04-09] MEDS: CELLCEPT PO SCH ×2 (10:29→22:40)
[2019-04-09] MEDS: ROCEPHIN/NS 1 GM/50 ML 1 GM/50 ML BAG IV SCH (10:29)
[2019-04-09] MEDS: THERAGRAN Tab PO SCH (10:30)
[2019-04-09] MEDS: PROCARDIA XL PO SCH ×2 (10:30→17:53)
[2019-04-09] MEDS: DELTASONE PO SCH (10:30)
[2019-04-09] MEDS: BUMEX IV SCH (10:30)
[2019-04-09] MEDS: COREG PO SCH ×2 (10:30→22:40)
[2019-04-09] MEDS: PROTONIX PO SCH (10:30)
[2019-04-09] MEDS: COLACE PO SCH (10:30)
[2019-04-09] MEDS: SODIUM CHLORIDE FLUSH SYRINGE 10 ML IV SCH ×2 (10:31→22:40)
[2019-04-09] MEDS ORDERED: UNASYN/NS 3 GM/100 ML 3 GM/100 ML BAG IV SCH (14:00)
--- NOTE | 2019-04-09 14:05 | Progress Note ---
Assessment and Plan - Patient Problems (1) Fluid overload Current Visit: Yes Status: Acute Plan to address problem: Continue management as previously outlined. (2) Chronic atrial fibrillation Current Visit: Yes Status: Acute Plan to address problem: Chronic atrial fibrillation on a rate control strategy and oral anticoagulation with warfarin. Subjective Date of service: 04/09/19 Principal diagnosis: acute metabolic encephalopathy, acute on CKD, Interval history: Patient is on the medical floor, comfortable on bedrest, no new cardiac complaints. Objective Vital Signs Temp Pulse Resp BP Pulse Ox 04/09/19 07:26 97.4 F L 54 L 18 126/59 98 04/09/19 05:00 60 129/56 04/09/19 02:56 68 190/92 04/09/19 02:36 68 98 04/09/19 02:04 97.6 F 18 190/92 04/08/19 22:23 180/80 04/08/19 22:00 97 04/08/19 21:21 58 L 195/82 04/08/19 20:23 97.5 F L 58 L 18 195/82 97 - Physical Examination General: No Apparent Distress, Cachectic HEENT: Positive: PERRL Neck: Positive: neck supple Cardiac: Positive: Reg Rate and Rhythm Lungs: Positive: Decreased Breath Sounds Neuro: Positive: Grossly Intact, Weakness Abdomen: Positive: Soft Skin: Positive: Clear Extremities: Absent: edema - Labs and Meds Coagulation 04/09/19 Range/Units 08:08 PT 34.1 H (12.2-14.9) Sec. INR 3.44 H (0.87-1.13) Comprehensive Metabolic Panel 04/09/19 Range/Units 09:30 Sodium 145 (137-145) mmol/L Potassium 3.1 L (3.6-5.0) mmol/L Chloride 107.8 H (98-107) mmol/L Carbon Dioxide 21 L (22-30) mmol/L BUN 77 H (9-20) mg/dL Creatinine 3.8 H (0.8-1.5) mg/dL Glucose 107 H (75-100) mg/dL Calcium 9.6 (8.4-10.2) mg/dL - Imaging and Cardiology EKG: report reviewed (Afib LVH)
[2019-04-09] MEDS ORDERED: COUMADIN NO DOSE TODAY PO ONE (17:00)
--- NOTE | 2019-04-09 17:08 | Progress Note ---
Assessment and Plan - Patient Problems (1) Acute on chronic renal failure Current Visit: Yes Status: Acute Plan to address problem: Acute on chronic renal failure Creatinine has been worsening over the past year Apparently creatinine was 2.5 in May 2018 and then worsened to 3.1 in November of this year subsequently 3.8 early this month I reviewed urinalysis with isosthenuria possible tubular injury proteinuria noted with few red blood cells I reviewed renal ultrasound which showed normal kidney transplant allograft with good vascular supply received diuretics Bumex 1 mg daily Current creatinine : 3.8mg/dl Strict input and output Check tacrolimus level Current on vancomycin for Enterococcus. PLEASE AVOID SUPRATHERAPEUTIC LEVELS OF VANCOMYCIN VANCOMYCIN TROUGH OF 16 TODAY AND AN ADDITIONAL DOSE WAS ORDERED. We'll need outpatient follow-up initiation of dialysis likely out patient's only if patient has worsening shortness of breath or deterioration of his kidney function (2) CHF (congestive heart failure) Current Visit: No Status: Acute Qualifiers: Heart failure type: diastolic Heart failure chronicity: chronic Qualified Code(s): I50.32 - Chronic diastolic (congestive) heart failure Plan to address problem: Congestive heart failure Chest x-ray with evidence of pulmonary congestion does have ankle edema. Received Bumex 1 mg daily for now Low-salt diet reviewed echocardiogram severe pulmonary hypertension with preserved ejection fraction (3) Renal transplant failure and rejection Current Visit: Yes Status: Acute Plan to address problem: Renal transplant failure Unclear if there is evidence of rejection Also unclear if the kidney has been biopsy in the past by transplant nephrology We'll need to discuss with patient's primary transplant [facility] possible nephrosclerosis versus rejection We'll need to determine if he needs to be transferred to [place] for further measures and treatment of a transplant versus dialysis if his renal function worsens Check tacrolimus level I have called the kidney transplant clinic at [facility] Discussed with the goal for tacrolimus 3-5 (4) HTN (hypertension) Current Visit: Yes Status: Chronic Qualifiers: Hypertension type: essential hypertension Qualified Code(s): I10 - Essential (primary) hypertension Plan to address problem: Hypertension uncontrolled Resume home medications list obtained from clinic Subjective Principal diagnosis: acute metabolic encephalopathy, acute on CKD, Interval history: 68-year-old gentleman with medical history significant for hypertension,congestive heart failure , Previous ESRD with Left arm AVF follows at [facility] follows with Dr. dial, Kidney transplant january 2015 now with worsening renal function , per office records creatinine was 3. 8 on 03/14 , creatinine was 2. 49, 05/2018 , creatinine was 3.11 on December 01 2018. patient seen today He denies any orthopnea or pnd Denies any fevers or chills. Objective - Vital Signs Vital signs: Vital Signs - 12hr 04/09/19 04/09/19 07:26 14:04 Temperature 97.4 F L 98.2 F Pulse Rate 54 L 58 L Respiratory 18 18 Rate Blood Pressure 126/59 115/45 O2 Sat by Pulse 98 99 Oximetry - General Appearance General appearance: well-developed, well-nourished EENT: ATNC, PERRL Neck: no JVD Respiratory: Present: Clear to Ascultation Cardiology: regular, S1S2 Gastrointestinal: normal, normoactive bowel sounds Integumentary: no rash Neurologic: alert and oriented x3, CN 3-12 intact Musculoskeletal: deferred Psychiatric: mood/affect appropriate - Lab 04/06/19 04:49 04/09/19 09:30 Most recent lab results Calcium 9.6 mg/dL (8.4-10.2) 04/09/19 09:30 Magnesium 2.20 mg/dL (1.7-2.3) 04/05/19 15:20 - Imaging Chest x-ray: image reviewed (I reviewed CXR with patchy opacities perihilar are a. ) Medications & Allergies - Medications Allergies/Adverse Reactions: Allergies iodine Allergy (Verified 09/18/18 15:29) Hives IVP DYE Allergy (Uncoded 08/31/13 09:00) Hives Home Medications: Home Medications Medication Instructions Recorded Confirmed Last Taken Type Captopril (Nf) [Capoten (Nf)] 25 mg PO BID 05/25/18 04/06/19 04/04/19 08:00 History Cinacalcet HCl [Sensipar] 90 mg PO HS 05/25/18 04/06/19 04/04/19 21:00 History Furosemide [Lasix TAB] 80 mg PO QDAY 05/25/18 04/06/19 04/05/19 08:00 History Hydralazine HCl 50 mg PO Q8H 05/25/18 04/06/19 04/05/19 08:00 History Mycophenolate [Cellcept] 250 mg PO BID 05/25/18 04/06/19 04/05/19 08:00 History NIFEdipine [Nifedipine ER] 60 mg PO BID 05/25/18 04/06/19 04/05/19 08:00 History Pantoprazole [Protonix TAB] 40 mg PO QDAY 05/25/18 04/06/19 04/05/19 08:00 History Potassium Chloride [Klor-Con] 20 meq PO BID 05/25/18 04/06/19 04/05/19 08:00 History Tacrolimus [Prograf] 1 mg PO Q12H 05/25/18 04/06/19 04/05/19 08:00 History Warfarin [Coumadin] 7.5 mg PO QDAY 05/25/18 04/06/19 Unknown History predniSONE [Prednisone] 5 mg PO DAILY 05/25/18 04/06/19 04/05/19 08:00 History Docusate Sodium [Colace CAP] 100 mg PO DAILY 09/18/18 04/06/19 04/05/19 08:00 History Multivitamin [Multiple Vitamins] 1 tab PO DAILY 09/18/18 04/06/19 04/05/19 08:00 History Active Medications: Generic Name Dose Route Start Last Admin Trade Name Freq PRN Reason Stop Dose Admin Acetaminophen 650 mg 04/05/19 22:38 Tylenol PO Q4H PRN Pain MILD(1-3)/Fever >100.5/NAVARRETE Bumetanide 1 mg 04/07/19 10:00 04/09/19 10:30 Bumex IV 1 mg DAILY [facility] Administration Carvedilol 3.125 mg 04/06/19 13:00 04/09/19 10:30 Coreg PO 3.125 mg BID [facility] Administration Cinacalcet 90 mg 04/06/19 22:00 04/08/19 22:22 Sensipar PO 90 mg HS [facility] Administration Docusate Sodium 100 mg 04/06/19 10:00 04/09/19 10:30 Colace PO 100 mg DAILY [facility] Administration Hydralazine HCl 50 mg 04/06/19 12:00 04/09/19 13:29 Apresoline PO 50 mg Q8H [facility] Administration Hydralazine HCl 10 mg 04/09/19 02:41 04/09/19 02:56 Apresoline IV 10 mg Q4HR PRN Administration Blood Pressure Hydromorphone HCl 0.5 mg 04/05/19 22:38 Dilaudid IV Q3H PRN Pain , Severe (7-10) Ampicillin Sodium 2 gm in 100 mls @ 100 mls/hr 04/09/19 14:00 Ampicillin/Ns 2 Gm/100 Ml IV 04/11/19 22:59 Q8HR [facility] Metoclopramide HCl 5 mg 04/05/19 22:38 Reglan IV Q6H PRN Nausea And Vomiting Miscellaneous Medication 25 mg 04/05/19 22:30 Captopril (Nf) PO BID [facility] Multivitamins 1 each 04/06/19 10:00 04/09/19 10:30 Theragran Tab PO 1 each DAILY [facility] Administration Mycophenolate Mofetil 750 mg 04/06/19 22:00 04/09/19 10:29 Cellcept PO 750 mg BID [facility] Administration Nifedipine 60 mg 04/05/19 22:30 04/09/19 10:30 Procardia Xl PO 60 mg BID@0800,1700 [facility] Administration Ondansetron HCl 4 mg 04/05/19 22:38 Zofran IV Q8H PRN Nausea And Vomiting Pantoprazole Sodium 40 mg 04/06/19 10:00 04/09/19 10:30 Protonix PO 40 mg QDAY [facility] Administration Prednisone 5 mg 04/06/19 10:00 04/09/19 10:30 Deltasone PO 5 mg DAILY [facility] Administration Sodium Chloride 10 ml 04/06/19 10:00 04/09/19 10:31 Sodium Chloride Flush Syringe 10 Ml IV 10 ml BID [facility] Administration Sodium Chloride 10 ml 04/05/19 22:38 Sodium Chloride Flush Syringe 10 Ml IV PRN PRN LINE FLUSH Tacrolimus 1 mg 04/06/19 19:00 04/09/19 06:17 Prograf PO 1 mg Q12H [facility] Administration
[2019-04-09] MEDS: AMPICILLIN/NS 2 GM/100 ML 2 GM/100 ML BAG IV SCH ×2 (17:54→22:38)
[2019-04-09] MEDS: SENSIPAR PO SCH (22:40)
[2019-04-10] MEDS: APRESOLINE PO SCH ×3 (04:21→21:00)
[2019-04-10] MEDS: AMPICILLIN/NS 2 GM/100 ML 2 GM/100 ML BAG IV SCH ×3 (05:54→22:20)
[2019-04-10 08:27] LABS: INR 3.62 (0.87-1.13)
[2019-04-10] MEDS: PROGRAF PO SCH ×2 (08:28→22:21)
[2019-04-10] MEDS: PROCARDIA XL PO SCH ×2 (08:28→16:12)
[2019-04-10 09:15] LABS: Calcium 9.1 mg/dL (8.4-10.2)
[2019-04-10] MEDS: COLACE PO SCH (10:40)
[2019-04-10] MEDS: DELTASONE PO SCH (10:40)
[2019-04-10] MEDS: PROTONIX PO SCH (10:40)
[2019-04-10] MEDS: THERAGRAN Tab PO SCH (10:40)
[2019-04-10] MEDS: SODIUM CHLORIDE FLUSH SYRINGE 10 ML IV SCH ×2 (10:41→22:21)
[2019-04-10] MEDS: BUMEX IV SCH (10:41)
[2019-04-10] MEDS: COREG PO SCH ×2 (10:49→22:20)
[2019-04-10] MEDS: CELLCEPT PO SCH ×2 (12:18→22:19)
--- NOTE | 2019-04-10 13:00 | Progress Note ---
Assessment and Plan Cultures: 04/05/19 Blood: Enterococcus faecalis, 4 out of 4 bottles, Hussein susceptible 04/05/19 Urine: 10-100 K of mixed culture > 2 organisms 04/09/2019 Blood culture pending A/P: 68-year old male with a past medical history of hypertension, A fib on anticoagulation, renal insufficiency, s/p kidney transplant in 2014 (currently on immnosuppresent therapy Cellcept and Tacrolimus), left upper extremity fistula that presents to the ED on 04/05/19 for evaluation of worsening renal insufficiency as per primary care doctor and altered mental status. Admitted with: 1. E. faecalis Bacteremia: 4 out of 4 bottles. Immunocompromised host s/p Kidney transplant 2014. Source most likely UTI. UA with pyuria. Urine culture mixed. No central lines. No skin wounds. TTE shows no valvular vegetation. Cu rrently being treated with Ampicillin. 2. UTI: UA with pyuria.. WBC 28, large LE. Urine culture shows mixed culture of > 2 organisms. 3. Renal transplant failure and rejection: per nephrology unclear if there is evidence of rejection. Possible nephrosclerosis vs rejection. Possible transfer to [place] for further treatment . Nephrology following. 4. Acute on chronic Renal failure: Worsening creatinine over the past year. creatinine was 2.5 in May 2018 and then worsened to 3.1 in November of this year. Admission creatinine 4.0 ---> 3.8. 5. Acute Encephalopathy: Resolved. Recommendations: -F/u Repeat Blood cultures ordered to ensure clearance -Continue Ampicillin 2 gm IV every 8 hours ( renally adjusted) - duration to be determined -If repeat BC are positive - will request [facility] Will follow. Dr Johnson to round tomorrow Lida Vargas MD Subjective Date of service: 04/10/19 Principal diagnosis: acute metabolic encephalopathy, acute on CKD, Interval history: Patient feels better, sitting up on PT, no fever. Objective - Exam Narrative Exam: General: alert pleasant in NAD Head, Ears, Nose: Normocephalic, atraumatic. External ears, nose normal Eyes: Conjunctivae/corneas clear. No icterus. No ptosis. Neck: Supple, no meningeal signs Oral: dentition fair. No thrush Cardiovascular: S1, S2 normal. Respiratory: Good air entry, clear to auscultation bilaterally GI: Soft, non-tender; bowel sounds normal. No peritoneal signs Musculoskeletal: No pedal edema, no cyanosis., Left arm edematous. Skin: No rash or abscess. Hem/Lymphatic: No palpable cervical or supraclavicular nodes. No lymphangitis Psych: Mood ok. Affect normal Neurological: Awake, alert, oriented. Left AV fistula. +thrill - Constitutional Vitals: Vital Signs Temp Pulse Resp BP Pulse Ox 97.8 F 61 20 148/65 97 04/10/19 07:27 04/10/19 12:21 04/10/19 07:27 04/10/19 12:21 04/10/19 08:29 Temperature -Last 24 Hours Temperature 97.8 F Temperature 97.7 F Temperature 97.6 F Temperature 98.2 F - Labs CBC & Chem 7: 04/06/19 04:49 04/10/19 08:29 Labs: Abnormal lab results 04/10/19 04/10/19 Range/Units 07:51 08:29 PT 35.5 H (12.2-14.9) Sec. INR 3.62 H (0.87-1.13) Sodium 147 H (137-145) mmol/L Potassium 3.0 L (3.6-5.0) mmol/L Chloride 107.4 H (98-107) mmol/L BUN 77 H (9-20) mg/dL Creatinine 3.9 H (0.8-1.5) mg/dL
[2019-04-10] MEDS ORDERED: K-DUR PO ONE (15:00)
--- NOTE | 2019-04-10 16:00 | Progress Note ---
Assessment and Plan - Patient Problems (1) Acute on chronic renal failure Current Visit: Yes Status: Acute Plan to address problem: Acute on chronic renal failure Creatinine has been worsening over the past year Apparently creatinine was 2.5 in May 2018 and then worsened to 3.1 in November of this year subsequently 3.8 early this month I reviewed urinalysis with isosthenuria possible tubular injury proteinuria noted with few red blood cells I reviewed renal ultrasound which showed normal kidney transplant allograft with good vascular supply received diuretics Bumex 1 mg daily Will hold Bumex today. Current creatinine : 3.9mg/dl Strict input and output Check tacrolimus level Current on vancomycin for Enterococcus. PLEASE AVOID SUPRATHERAPEUTIC LEVELS OF VANCOMYCIN VANCOMYCIN TROUGH OF 16 TODAY AND AN ADDITIONAL DOSE WAS ORDERED. We'll need outpatient follow-up initiation of dialysis likely out patient's only if patient has worsening shortness of breath or deterioration of his kidney function (2) CHF (congestive heart failure) Current Visit: No Status: Acute Qualifiers: Heart failure type: diastolic Heart failure chronicity: chronic Qualified Code(s): I50.32 - Chronic diastolic (congestive) heart failure Plan to address problem: Congestive heart failure Chest x-ray with evidence of pulmonary congestion does have ankle edema. Received Bumex 1 mg daily for now Low-salt diet reviewed echocardiogram severe pulmonary hypertension with preserved ejection fraction (3) Renal transplant failure and rejection Current Visit: Yes Status: Acute Plan to address problem: Renal transplant failure Unclear if there is evidence of rejection Also unclear if the kidney has been biopsy in the past by transplant nephrology We'll need to discuss with patient's primary transplant [employer] Technologist at [facility] possible nephrosclerosis versus rejection We'll need to determine if he needs to be transferred to [place] for further measures and treatment of a transplant versus dialysis if his renal function worsens Check tacrolimus level I have called the kidney transplant clinic at [facility] Discussed with the goal for tacrolimus 3-5 (4) HTN (hypertension) Current Visit: Yes Status: Chronic Qualifiers: Hypertension type: essential hypertension Qualified Code(s): I10 - Essential (primary) hypertension Plan to address problem: Hypertension uncontrolled Resume home medications list obtained from clinic Subjective Principal diagnosis: acute metabolic encephalopathy, acute on CKD, Interval history: 68-year-old gentleman with medical history significant for hypertension,congestive heart failure , Previous ESRD with Left arm AVF follows at [facility] follows with Dr. dial, Kidney transplant january 2015 now with worsening renal function , per office records creatinine was 3. 8 on 03/14 , creatinine was 2. 49, 05/2018 , creatinine was 3.11 on December 01 2018. patient seen today He denies any orthopnea or pnd Denies any fevers or chills. Objective - Vital Signs Vital signs: Vital Signs - 12hr 04/10/19 04/10/19 04/10/19 07:27 08:29 10:00 Temperature 97.8 F Pulse Rate 57 L 74 Respiratory 20 Rate Blood Pressure 120/57 144/63 O2 Sat by Pulse 97 97 97 Oximetry 04/10/19 04/10/19 04/10/19 10:11 10:49 12:21 Temperature Pulse Rate 60 66 61 Respiratory Rate Blood Pressure 120/60 120/60 148/65 O2 Sat by Pulse 97 Oximetry 04/10/19 14:27 Temperature 98.4 F Pulse Rate 72 Respiratory 20 Rate Blood Pressure 175/81 O2 Sat by Pulse 98 Oximetry - General Appearance General appearance: well-developed, well-nourished EENT: ATNC, PERRL, mucous membranes moist Neck: no JVD Respiratory: Present: Clear to Ascultation Cardiology: regular, S1S2 Gastrointestinal: normal, normoactive bowel sounds Integumentary: no rash Neurologic: alert and oriented x3, CN 3-12 intact Psychiatric: mood/affect appropriate - Lab 04/06/19 04:49 04/10/19 08:29 Most recent lab results Calcium 9.1 mg/dL (8.4-10.2) 04/10/19 08:29 Magnesium 2.20 mg/dL (1.7-2.3) 04/05/19 15:20 - Imaging Chest x-ray: image reviewed (I reviewed CXR with hazy opacities. ) Medications & Allergies - Medications Allergies/Adverse Reactions: Allergies iodine Allergy (Verified 09/18/18 15:29) Hives IVP DYE Allergy (Uncoded 08/31/13 09:00) Hives Home Medications: Home Medications Medication Instructions Recorded Confirmed Last Taken Type Captopril (Nf) [Capoten (Nf)] 25 mg PO BID 05/25/18 04/06/19 04/04/19 08:00 History Cinacalcet HCl [Sensipar] 90 mg PO HS 05/25/18 04/06/19 04/04/19 21:00 History Furosemide [Lasix TAB] 80 mg PO QDAY 05/25/18 04/06/19 04/05/19 08:00 History Hydralazine HCl 50 mg PO Q8H 05/25/18 04/06/19 04/05/19 08:00 History Mycophenolate [Cellcept] 250 mg PO BID 05/25/18 04/06/19 04/05/19 08:00 History NIFEdipine [Nifedipine ER] 60 mg PO BID 05/25/18 04/06/19 04/05/19 08:00 History Pantoprazole [Protonix TAB] 40 mg PO QDAY 05/25/18 04/06/19 04/05/19 08:00 History Potassium Chloride [Klor-Con] 20 meq PO BID 05/25/18 04/06/19 04/05/19 08:00 History Tacrolimus [Prograf] 1 mg PO Q12H 05/25/18 04/06/19 04/05/19 08:00 History Warfarin [Coumadin] 7.5 mg PO QDAY 05/25/18 04/06/19 Unknown History predniSONE [Prednisone] 5 mg PO DAILY 05/25/18 04/06/19 04/05/19 08:00 History Docusate Sodium [Colace CAP] 100 mg PO DAILY 09/18/18 04/06/19 04/05/19 08:00 History Multivitamin [Multiple Vitamins] 1 tab PO DAILY 09/18/18 04/06/19 04/05/19 08:00 History Active Medications: Generic Name Dose Route Start Last Admin Trade Name Tomq PRN Reason Stop Dose Admin Acetaminophen 650 mg 04/05/19 22:38 Tylenol PO Q4H PRN Pain MILD(1-3)/Fever >100.5/NAVARRETE Bumetanide 1 mg 04/07/19 10:00 04/10/19 10:41 Bumex IV 1 mg DAILY MASON Administration Carvedilol 3.125 mg 04/06/19 13:00 04/10/19 10:49 Coreg PO Not Given BID MASON Cinacalcet 90 mg 04/06/19 22:00 04/09/19 22:40 Sensipar PO 90 mg HS MASON Administration Docusate Sodium 100 mg 04/06/19 10:00 09/02/19 10:40 Colace PO 100 mg DAILY MASON Administration Hydralazine HCl 50 mg 04/06/19 12:00 04/10/19 12:21 Apresoline PO 50 mg Q8H MASON Administration Hydralazine HCl 10 mg 04/09/19 02:41 04/09/19 02:56 Apresoline IV 10 mg Q4HR PRN Administration Blood Pressure Hydromorphone HCl 0.5 mg 04/05/19 22:38 Dilaudid IV Q3H PRN Pain , Severe (7-10) Ampicillin Sodium 2 gm in 100 mls @ 100 mls/hr 04/09/19 14:00 04/10/19 15:02 Ampicillin/Ns 2 Gm/100 Ml IV 04/11/19 22:59 100 mls/hr Q8HR MASON Administration Metoclopramide HCl 5 mg 04/05/19 22:38 Reglan IV Q6H PRN Nausea And Vomiting Miscellaneous Medication 25 mg 04/05/19 22:30 Captopril (Nf) PO BID MASON Multivitamins 1 each 04/06/19 10:00 04/10/19 10:40 Theragran Tab PO 1 each DAILY MASON Administration Mycophenolate Mofetil 750 mg 04/06/19 22:00 04/10/19 12:18 Cellcept PO 750 mg BID MASON Administration Nifedipine 60 mg 04/05/19 22:30 04/10/19 08:28 Procardia Xl PO 60 mg BID@0800,1700 MASON Administration Ondansetron HCl 4 mg 04/05/19 22:38 Zofran IV Q8H PRN Nausea And Vomiting Pantoprazole Sodium 40 mg 04/06/19 10:00 04/10/19 10:40 Protonix PO 40 mg QDAY MASON Administration Prednisone 5 mg 04/06/19 10:00 04/10/19 10:40 Deltasone PO 5 mg DAILY MASON Administration Sodium Chloride 10 ml 04/06/19 10:00 04/10/19 10:41 Sodium Chloride Flush Syringe 10 Ml IV 10 ml BID MASON Administration Sodium Chloride 10 ml 04/05/19 22:38 Sodium Chloride Flush Syringe 10 Ml IV PRN PRN LINE FLUSH Tacrolimus 1 mg 04/06/19 19:00 04/10/19 08:28 Prograf PO 1 mg Q12H MASON Administration
--- NOTE | 2019-04-10 16:31 | Progress Note ---
Assessment and Plan - Patient Problems (1) Fluid overload Current Visit: Yes Status: Acute Plan to address problem: Continue management as previously outlined. (2) Chronic atrial fibrillation Current Visit: Yes Status: Acute Plan to address problem: Chronic atrial fibrillation on a rate control strategy and oral anticoagulation with warfarin. Subjective Date of service: 04/10/19 Principal diagnosis: acute metabolic encephalopathy, acute on CKD, Interval history: Patient is on the medical floor, comfortable on bedrest, no new cardiac complaints. Objective Vital Signs Temp Pulse Resp BP Pulse Ox 04/10/19 16:11 148/67 04/10/19 14:27 98.4 F 72 20 175/81 98 04/10/19 12:21 61 148/65 04/10/19 10:49 66 120/60 04/10/19 10:11 60 120/60 97 04/10/19 10:00 97 04/10/19 08:29 74 144/63 97 04/10/19 07:27 97.8 F 57 L 20 120/57 97 04/10/19 01:45 97.7 F 60 20 116/52 92 04/09/19 22:00 98 04/09/19 20:39 70 129/66 04/09/19 19:44 97.6 F 70 16 129/66 97 - Physical Examination General: No Apparent Distress, Cachectic HEENT: Positive: PERRL Neck: Positive: neck supple Cardiac: Positive: Reg Rate and Rhythm Lungs: Positive: Decreased Breath Sounds Neuro: Positive: Grossly Intact, Weakness Abdomen: Positive: Soft Skin: Positive: Clear Extremities: Absent: edema - Labs and Meds Coagulation 04/10/19 Range/Units 07:51 PT 35.5 H (12.2-14.9) Sec. INR 3.62 H (0.87-1.13) Comprehensive Metabolic Panel 04/10/19 Range/Units 08:29 Sodium 147 H (137-145) mmol/L Potassium 3.0 L (3.6-5.0) mmol/L Chloride 107.4 H (98-107) mmol/L Carbon Dioxide 22 (22-30) mmol/L BUN 77 H (9-20) mg/dL Creatinine 3.9 H (0.8-1.5) mg/dL Glucose 99 (75-100) mg/dL Calcium 9.1 (8.4-10.2) mg/dL - Imaging and Cardiology EKG: report reviewed (Afib LVH)
[2019-04-10] MEDS ORDERED: COUMADIN NO DOSE TODAY PO ONE (17:00)
[2019-04-10] MEDS: SENSIPAR PO SCH (22:20)
[2019-04-11] MEDS: APRESOLINE PO SCH ×3 (03:40→21:30)
[2019-04-11] MEDS: AMPICILLIN/NS 2 GM/100 ML 2 GM/100 ML BAG IV SCH ×3 (05:30→21:27)
[2019-04-11] MEDS: PROGRAF PO SCH ×2 (06:10→18:04)
--- NOTE | 2019-04-11 06:41 | Progress Note ---
Assessment and Plan - Acute on chronic renal failure Status post renal transplant Discussed with [employer] house cook and who intimated that the transplant unit at [place] was aware that patient's was undergoing rejection High biopsy of the kidney that showed interstitial changes. Recommended proceeding with renal replacement therapy when appropriate - Acute metabolic encephalopathy Due to renal failure and other comorbid conditions Continue treatment of underlying factors factors - Atrial fibrillation Rate controlled Anticoagulated with Coumadin - UTI Urine culture obtained Blood cx yielded gram positive cocci in pairs for which pt was commence on Vanc and Rocephin vanc has been discontinued, marline considering renal transplant Discussed with Pharmacy, start renally dosed po augmenting till ID eval culture showed E Fecalis. -F/u Repeat Blood cultures ordered to ensure clearance -Continue Ampicillin 2 gm IV every 8 hours ( renally adjusted) - duration to be determined -If repeat BC are positive - will request MADDIE - GERD Continue PPI - Acute on chronic combined systolic and diastolic heart failure Diuresis, beta emily, we will hold ACEI because of acute on chronic renal failure DVT prophylaxis already on Coumadin CODE STATUS patient is full code Subjective Date of service: 04/10/19 Principal diagnosis: acute metabolic encephalopathy, acute on CKD, Interval history: 68-year-old AAM with pmh of hypertension, A. fib on anticoagulation, renal insufficiency, status post renal transplant, in the past has been on graft re jection therapy, uncertain if on antirejection meds at this time, malnutrition, left upper extremity fistula presents to ED for evaluation of worsening renal insufficiency as per primary care doctor. However, the patient is altered. He cannot tell why he is here. He cannot answer whether or not he is having any pain. He does not know what medications he is taking. We have attempted to contact the patient's or collateral information, and left a voicemail for call back, as nobody has answered. In the emergency room, the patient is sleepy but arousable, moving 4 extremities and protecting his airway. No additional history is available at this time. Objective - Constitutional Vitals: Vital Signs - 12hr 04/10/19 04/10/19 04/10/19 21:00 21:09 21:23 Temperature 97.7 F Pulse Rate 65 Respiratory 18 Rate Blood Pressure 165/83 176/75 O2 Sat by Pulse 98 Oximetry 04/10/19 04/11/19 04/11/19 22:20 02:59 03:40 Temperature 98.5 F Pulse Rate 65 59 L 59 L Respiratory 18 Rate Blood Pressure 165/83 137/60 137/60 O2 Sat by Pulse 94 Oximetry General appearance: Present: no acute distress, well-nourished - EENT Eyes: PERRL, EOM intact ENT: hearing intact, clear oral mucosa Ears: bilateral: normal - Neck Neck: supple, normal ROM - Respiratory Respiratory effort: normal Respiratory: bilateral: CTA - Breasts Breasts: normal - Cardiovascular Rhythm: regular Heart Sounds: Present: S1 & S2. Absent: gallop, rub Extremities: pulses intact, No edema, normal color, Full ROM - Gastrointestinal General gastrointestinal: Present: soft, non-tender, non-distended, normal bowel sounds - Genitourinary Male genitourinary: normal - Integumentary Integumentary: clear, warm, dry - Musculoskeletal Musculoskeletal: 1, strength equal bilaterally - Neurologic Neurologic: moves all extremities - Psychiatric Psychiatric: memory intact, appropriate mood/affect, intact judgment & insight - Labs CBC & Chem 7: 04/06/19 04:49 04/10/19 08:29 Labs: Abnormal lab results 04/10/19 04/10/19 Range/Units 07:51 08:29 PT 35.5 H (12.2-14.9) Sec. INR 3.62 H (0.87-1.13) Sodium 147 H (137-145) mmol/L Potassium 3.0 L (3.6-5.0) mmol/L Chloride 107.4 H (98-107) mmol/L BUN 77 H (9-20) mg/dL Creatinine 3.9 H (0.8-1.5) mg/dL
[2019-04-11 06:48] LABS: INR 3.59 (0.87-1.13)
[2019-04-11] MEDS: PROCARDIA XL PO SCH ×2 (08:02→17:55)
--- NOTE | 2019-04-11 08:39 | Progress Note ---
Assessment and Plan ultures: 04/05/19 Blood: Enterococcus faecalis, 4 out of 4 bottles, Hussein susceptible 04/05/19 Urine: 10-100 K of mixed culture > 2 organisms 04/09/2019 Blood culture: no growth to date A/P: 68-year old male with a past medical history of hypertension, A fib on anticoagulation, renal insufficiency, s/p kidney transplant in 2014 (currently on immnosuppresent therapy Cellcept and Tacrolimus), left upper extremity fistula that presents to the ED on 04/05/19 for evaluation of worsening renal insufficiency as per primary care doctor and altered mental status. Admitted with: 1. E. faecalis Bacteremia: 4 out of 4 bottles. Immunocompromised host s/p Kidney transplant 2014. Source most likely UTI. UA with pyuria. Urine culture mixed. No central lines. No skin wounds. TTE shows no valvular vegetation. Rpt blood cultures show no growth to date. Currently being treated with Ampicillin. 2. UTI: UA with pyuria.. WBC 28, large LE. Urine culture shows mixed culture of > 2 organisms. 3. Renal transplant failure and rejection: per nephrology unclear if there is evidence of rejection. Possible nephrosclerosis vs rejection. Possible transfer to [place] for further treatment . Nephrology following. 4. Acute on chronic Renal failure: Worsening creatinine over the past year. creatinine was 2.5 in May 2018 and then worsened to 3.1 in November of this year. Admission creatinine 4.0 ---> 3.8. 5. Acute Encephalopathy: Resolved. Recommendations: -F/u Repeat Blood cultures to ensure clearance -Continue Ampicillin 2 gm IV every 8 hours ( renally adjusted) - duration to be determined -If repeat BC are positive - will request MADDIE Nelson NP [facility] M: [phone] O:[phone] Subjective Date of service: 04/11/19 Principal diagnosis: acute metabolic encephalopathy, acute on CKD, Interval history: Patient seen and examined. Reports improved symptoms. No generalized pain or weakness reported. No fevers. Objective - Exam Narrative Exam: Constitutional: Alert, cooperative. No acute distress Head, Ears, Nose: Normocephalic, atraumatic. External ears, nose normal Eyes: Conjunctivae/corneas clear. No icterus. No ptosis. Neck: Supple, no meningeal signs Oral: dentition fair. No thrush Cardiovascular: S1, S2 normal. Respiratory: Good air entry, clear to auscultation bilaterally GI: Soft, non-tender; bowel sounds normal. No peritoneal signs Musculoskeletal: No pedal edema, no cyanosis., Skin: No rash or abscess. Hem/Lymphatic: No palpable cervical or supraclavicular nodes. No lymphangitis Psych: Mood ok. Affect normal Neurological: Awake, alert, oriented. Left AV fistula. +thrill - Constitutional Vitals: Vital Signs Temp Pulse Resp BP Pulse Ox 97.4 F L 68 20 126/61 96 04/11/19 07:38 04/11/19 07:38 04/11/19 07:38 04/11/19 07:38 04/11/19 07:38 Temperature -Last 24 Hours Temperature 97.4 F Temperature 98.5 F Temperature 97.7 F Temperature 98.4 F - Labs CBC & Chem 7: 04/06/19 04:49 04/11/19 11:29 Labs: Abnormal lab results 04/10/19 04/11/19 Range/Units 08:29 05:40 PT 35.3 H (12.2-14.9) Sec. INR 3.59 H (0.87-1.13) Sodium 147 H (137-145) mmol/L Potassium 3.0 L (3.6-5.0) mmol/L Chloride 107.4 H (98-107) mmol/L BUN 77 H (9-20) mg/dL Creatinine 3.9 H (0.8-1.5) mg/dL
[2019-04-11] MEDS ORDERED: K-DUR PO NR (08:59)
[2019-04-11] MEDS: COLACE PO SCH (09:29)
[2019-04-11] MEDS: SODIUM CHLORIDE FLUSH SYRINGE 10 ML IV SCH ×2 (09:31→21:28)
[2019-04-11] MEDS: PROTONIX PO SCH (09:31)
[2019-04-11] MEDS: DELTASONE PO SCH (09:31)
[2019-04-11] MEDS: CELLCEPT PO SCH ×2 (09:31→21:29)
[2019-04-11] MEDS: THERAGRAN Tab PO SCH (09:31)
[2019-04-11] MEDS: BUMEX IV SCH (09:32)
[2019-04-11] MEDS: COREG PO SCH ×2 (09:34→21:28)
--- NOTE | 2019-04-11 10:02 | Progress Note ---
Assessment and Plan Volume overload Chronic renal failure status post renal transplant Chronic anemia Permanent Afib on warfarin therapy as an outpatient Hx of Sick sinus syndrome status post leadless pacemaker implant. Hypertension Valvular heart disease An echocardiogram done this admission shows mild to moderate AI with severely dilated left. There is moderate left ventricular hypertrophy and moderate to severe pulmonary hypertension with a RVSP of 59. Normal left ventricular systolic function, ejection fraction 55-60% Conservative cardiac management. Subjective Date of service: 04/11/19 Principal diagnosis: acute metabolic encephalopathy, acute on CKD, Interval history: Patient denies chest pain, shortness of breath and palpitations. Warfarin held due to supra therapeutic INR of 3.59 today. Objective Vital Signs Temp Pulse Resp BP Pulse Ox 04/11/19 09:34 65 132/54 04/11/19 07:38 97.4 F L 68 20 126/61 96 04/11/19 03:40 59 L 137/60 04/11/19 02:59 98.5 F 59 L 18 137/60 94 04/10/19 22:20 65 165/83 04/10/19 21:23 98 04/10/19 21:09 97.7 F 18 176/75 04/10/19 21:00 65 165/83 04/10/19 16:11 148/67 04/10/19 14:27 98.4 F 72 20 175/81 98 04/10/19 12:21 61 148/65 04/10/19 10:49 66 120/60 04/10/19 10:11 60 120/60 97 - Physical Examination General: No Apparent Distress, Cachectic HEENT: Positive: PERRL Neck: Positive: neck supple Cardiac: Positive: irregularly irregular Neuro: Positive: Weakness Extremities: Absent: edema - Labs and Meds Coagulation 04/11/19 Range/Units 05:40 PT 35.3 H (12.2-14.9) Sec. INR 3.59 H (0.87-1.13)
--- NOTE | 2019-04-11 12:15 | Progress Note ---
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 However, patient w/ very little muscle mass. As such, eGFR may be overestimating patient's actual renal function. Outpatient nephrology notes reviewed. Discussion re: potential need for dialysis ongoing since Nov 2018. * Will obtain 24h urine CrCl * Continue current IS therapy * Diuresis prn - hold for now * Abx per ID/primary team * Replete lytes prn * Dose medications for renal function Subjective Date of service: 04/11/19 Principal diagnosis: acute metabolic encephalopathy, acute on CKD, Interval history: Patient denies SOB. Objective - Vital Signs Vital signs: Vital Signs - 12hr 04/11/19 04/11/19 04/11/19 02:59 03:40 07:38 Temperature 98.5 F 97.4 F L Pulse Rate 59 L 59 L 68 Respiratory 18 20 Rate Blood Pressure 137/60 137/60 126/61 O2 Sat by Pulse 94 96 Oximetry 04/11/19 04/11/19 04/11/19 09:34 11:48 11:58 Temperature Pulse Rate 65 52 L 52 L Respiratory Rate Blood Pressure 132/54 162/72 162/72 O2 Sat by Pulse 97 Oximetry - General Appearance General appearance: frail EENT: ATNC Respiratory: Present: Decreased Breath Sounds Cardiology: regular, S1S2 Gastrointestinal: normal, no tenderness, no distended Musculoskeletal: other (no edema) Psychiatric: cooperative - Lab 04/06/19 04:49 04/11/19 11:29 Most recent lab results Calcium 9.0 mg/dL (8.4-10.2) 04/11/19 11:29 Magnesium 2.20 mg/dL (1.7-2.3) 04/05/19 15:20 Medications & Allergies - Medications Allergies/Adverse Reactions: Allergies iodine Allergy (Verified 09/18/18 15:29) Hives IVP DYE Allergy (Uncoded 08/31/13 09:00) Hives Home Medications: Home Medications Medication Instructions Recorded Confirmed Last Taken Type Captopril (Nf) [Capoten (Nf)] 25 mg PO BID 1004/06/19 04/04/19 08:00 History Cinacalcet HCl [Sensipar] 90 mg PO HS 05/25/18 04/06/19 04/04/19 21:00 History Furosemide [Lasix TAB] 80 mg PO QDAY 05/25/18 04/06/19 04/05/19 08:00 History Hydralazine HCl 50 mg PO Q8H 05/25/18 04/06/19 04/05/19 08:00 History Mycophenolate [Cellcept] 250 mg PO BID 05/25/18 04/06/19 04/05/19 08:00 History NIFEdipine [Nifedipine ER] 60 mg PO BID 05/25/18 04/06/19 04/05/19 08:00 History Pantoprazole [Protonix TAB] 40 mg PO QDAY 05/25/18 04/06/19 04/05/19 08:00 History Potassium Chloride [Klor-Con] 20 meq PO BID 05/25/18 04/06/19 04/05/19 08:00 History Tacrolimus [Prograf] 1 mg PO Q12H 05/25/18 04/06/19 04/05/19 08:00 History Warfarin [Coumadin] 7.5 mg PO QDAY 05/25/18 04/06/19 Unknown History predniSONE [Prednisone] 5 mg PO DAILY 05/25/18 04/06/19 04/05/19 08:00 History Docusate Sodium [Colace CAP] 100 mg PO DAILY 09/18/18 04/06/19 04/05/19 08:00 History Multivitamin [Multiple Vitamins] 1 tab PO DAILY 09/18/18 04/06/19 04/05/19 08:00 History Active Medications: Generic Name Dose Route Start Last Admin Trade Name Freq PRN Reason Stop Dose Admin Acetaminophen 650 mg 04/05/19 22:38 Tylenol PO Q4H PRN Pain MILD(1-3)/Fever >100.5/NAVARRETE Bumetanide 1 mg 04/07/19 10:00 04/11/19 09:32 Bumex IV 1 mg DAILY MASON Administration Carvedilol 3.125 mg 04/06/19 13:00 04/11/19 09:34 Coreg PO 3.125 mg BID MASON Administration Cinacalcet 90 mg 04/06/19 22:00 04/10/19 22:20 Sensipar PO 90 mg HS MASON Administration Docusate Sodium 100 mg 04/06/19 10:00 04/11/19 09:29 Colace PO Not Given DAILY MASON Hydralazine HCl 50 mg 04/06/19 12:00 04/11/19 11:58 Apresoline PO 50 mg Q8H MASON Administration Hydralazine HCl 10 mg 04/09/19 02:41 04/09/19 02:56 Apresoline IV 10 mg Q4HR PRN Administration Blood Pressure Hydromorphone HCl 0.5 mg 04/05/19 22:38 Dilaudid IV Q3H PRN Pain , Severe (7-10) Ampicillin Sodium 2 gm in 100 mls @ 100 mls/hr 04/09/19 14:00 04/11/19 05:30 Ampicillin/Ns 2 Gm/100 Ml IV 100 mls/hr Q8HR MASON Administration Metoclopramide HCl 5 mg 04/05/19 22:38 Reglan IV Q6H PRN Nausea And Vomiting Miscellaneous Medication 25 mg 04/05/19 22:30 Captopril (Nf) PO BID PENDING SALE TO [facility] Multivitamins 1 each 04/06/19 10:00 04/11/19 09:31 Theragran Tab PO 1 each DAILY MASON Administration Mycophenolate Mofetil 750 mg 04/06/19 22:00 04/11/19 09:31 Cellcept PO 750 mg BID MASON Administration Nifedipine 60 mg 04/05/19 22:30 04/11/19 08:02 Procardia Xl PO Not Given BID@0800,1700 PENDING SALE TO [facility] Ondansetron HCl 4 mg 04/05/19 22:38 Zofran IV Q8H PRN Nausea And Vomiting Pantoprazole Sodium 40 mg 04/06/19 10:00 04/11/19 09:31 Protonix PO 40 mg QDAY MASON Administration Prednisone 5 mg 04/06/19 10:00 04/11/19 09:31 Deltasone PO 5 mg DAILY MASON Administration Sodium Chloride 10 ml 04/06/19 10:00 04/11/19 09:31 Sodium Chloride Flush Syringe 10 Ml IV 10 ml BID MASON Administration Sodium Chloride 10 ml 04/05/19 22:38 Sodium Chloride Flush Syringe 10 Ml IV PRN PRN LINE FLUSH Tacrolimus 1 mg 04/06/19 19:00 04/11/19 06:10 Prograf PO 1 mg Q12H MASON Administration
--- NOTE | 2019-04-11 16:54 | Progress Note ---
Assessment and Plan Hypernatremia Mild Gentle D5w at 75 cc/hr for 24 hrs - Acute on chronic renal failure Status post renal transplant Discussed with director park and who intimated that the transplant unit at [place] was aware that patient's was undergoing rejection High biopsy of the kidney that showed interstitial changes. Recommended proceeding with renal replacement therapy when appropriate - Acute metabolic encephalopathy Due to renal failure and other comorbid conditions Improved - Atrial fibrillation Rate controlled Anticoagulated with Coumadin Hypokalemia Supplemented - UTI Urine culture obtained Blood cx yielded gram positive cocci in pairs for which pt was commence on Vanc and Rocephin vanc has been discontinued, marline considering renal transplant culture showed E Fecalis. repeat cultures negative at 24 hrs If negative at 48 hrs patient to be discharged after discussing with ID D/w Ms Nelson ID -F/u Repeat Blood cultures ordered to ensure clearance -Continue Ampicillin 2 gm IV every 8 hours ( renally adjusted) - duration to be determined -If repeat BC are positive - will request MADDIE - GERD Continue PPI - Acute on chronic combined systolic and diastolic heart failure Diuresis, beta emily, we will hold ACEI because of acute on chronic renal failure DVT prophylaxis already on Coumadin CODE STATUS patient is full code Disposition Probable discharge tomorrow if elctrolytes are normal and cleared by ID Subjective Date of service: 04/11/19 Principal diagnosis: acute metabolic encephalopathy, acute on CKD, Interval history: 68-year-old AAM with pmh of hypertension, A. fib on anticoagulation, renal insufficiency, status post renal transplant, in the past has been on graft rejection therapy, uncertain if on antirejection meds at this time, malnutrition, left upper extremity fistula presents to ED for evaluation of worsening renal insufficiency as per primary care doctor. However, the patient is altered. He cannot tell why he is here. He cannot answer whether or not he is having any pain. He does not know what medications he is taking. We have attempted to contact the patient's or collateral information, and left a voicemail for call back, as nobody has answered. In the emergency room, the patient is sleepy but arousable, moving 4 extremities and protecting his airway. No additional history is available at this time. Objective - Constitutional Vitals: Vital Signs - 12hr 04/11/19 04/11/19 04/11/19 07:38 09:34 10:00 Temperature 97.4 F L Pulse Rate 68 65 Respiratory 20 Rate Blood Pressure 126/61 132/54 O2 Sat by Pulse 96 100 Oximetry 04/11/19 04/11/19 04/11/19 11:48 11:58 13:48 Temperature 97.5 F L Pulse Rate 52 L 52 L 65 Respiratory 18 Rate Blood Pressure 162/72 162/72 148/63 O2 Sat by Pulse 97 96 Oximetry General appearance: Present: no acute distress, well-nourished - EENT Eyes: PERRL, EOM intact ENT: hearing intact, clear oral mucosa Ears: bilateral: normal - Neck Neck: supple, normal ROM - Respiratory Respiratory effort: normal Respiratory: bilateral: CTA - Breasts Breasts: normal - Cardiovascular Heart rate: 78 Rhythm: regular Heart Sounds: Present: S1 & S2. Absent: gallop, rub Extremities: pulses intact, No edema, normal color, Full ROM - Gastrointestinal General gastrointestinal: Present: soft, non-tender, non-distended, normal bowel sounds - Genitourinary Male genitourinary: normal - Integumentary Integumentary: clear, warm, dry - Musculoskeletal Musculoskeletal: 1, strength equal bilaterally - Neurologic Neurologic: moves all extremities - Psychiatric Psychiatric: memory intact, appropriate mood/affect, intact judgment & insight - Labs CBC & Chem 7: 04/06/19 04:49 04/11/19 11:29 Labs: Abnormal lab results 04/11/19 04/11/19 Range/Units 05:40 11:29 PT 35.3 H (12.2-14.9) Sec. INR 3.59 H (0.87-1.13) Sodium 147 H (137-145) mmol/L Potassium 3.0 L (3.6-5.0) mmol/L Chloride 110.1 H (98-107) mmol/L Carbon Dioxide 21 L (22-30) mmol/L BUN 73 H (9-20) mg/dL Creatinine 3.7 H (0.8-1.5) mg/dL Glucose 144 H (75-100) mg/dL
[2019-04-11] MEDS ORDERED: K-DUR PO ONE (16:55)
[2019-04-11] MEDS ORDERED: D5W 1,000 ML IV SCH (17:00)
[2019-04-11] MEDS: SENSIPAR PO SCH (21:30)
[2019-04-12] MEDS: AMPICILLIN/NS 2 GM/100 ML 2 GM/100 ML BAG IV SCH ×3 (05:11→22:35)
[2019-04-12] MEDS: APRESOLINE PO SCH ×3 (05:13→20:34)
[2019-04-12] MEDS: PROGRAF PO SCH ×2 (06:01→18:27)
[2019-04-12 06:10] LABS: Basophils # (Auto) 0.1 K/mm3 (0.0-0.1); Basophils % (Auto) 1.1 % (0.0-1.8); Eosinophils # (Auto) 0.1 K/mm3 (0.0-0.4); Eosinophils % (Auto) 1.9 % (0.0-4.3); Hematocrit 23.3 % (35.5-45.6); Hemoglobin 7.5 gm/dl (11.8-15.2); Lymphocytes # (Auto) 0.6 K/mm3 (1.2-5.4); Lymphocytes % (Auto) 8.5 % (13.4-35.0); Mean Corpuscular HGB Conc 32 % (32-34); Mean Corpuscular Volume 90 fl (84-94); Monocytes # (Auto) 0.7 K/mm3 (0.0-0.8); Monocytes % (Auto) 9.7 % (0.0-7.3); Platelet Count 224 K/mm3 (140-440); Red Cell Distribution Width 16.7 % (13.2-15.2)
[2019-04-12 08:03] LABS: INR 2.62 (0.87-1.13)
[2019-04-12] MEDS: PROCARDIA XL PO SCH ×2 (08:29→17:23)
--- NOTE | 2019-04-12 08:55 | Progress Note ---
Assessment and Plan ultures: 04/05/19 Blood: Enterococcus faecalis, 4 out of 4 bottles, Hussein susceptible 04/05/19 Urine: 10-100 K of mixed culture > 2 organisms 04/09/2019 Blood culture: no growth to date A/P: 68-year old male with a past medical history of hypertension, A fib on anticoagulation, renal insufficiency, s/p kidney transplant in 2014 (currently on immnosuppresent therapy Cellcept and Tacrolimus), left upper extremity fistula that presents to the ED on 04/05/19 for evaluation of worsening renal insufficiency as per primary care doctor and altered mental status. Admitted with: 1. E. faecalis Bacteremia: 4 out of 4 bottles. Immunocompromised host s/p Kidney transplant 2014. Source most likely UTI. UA with pyuria. Urine culture mixed. No central lines. No skin wounds. TTE shows no valvular vegetation. Rpt blood cultures show no growth to date. Currently being treated with Ampicillin. 2. UTI: UA with pyuria.. WBC 28, large LE. Urine culture shows mixed culture of > 2 organisms. 3. Renal transplant failure and rejection: per nephrology unclear if there is evidence of rejection. Possible nephrosclerosis vs rejection. Possible transfer to [place] for further treatment . Nephrology following. 4. Acute on chronic Renal failure: Worsening creatinine over the past year. creatinine was 2.5 in May 2018 and then worsened to 3.1 in November of this year. Admission creatinine 4.0 ---> 3.8. 5. Acute Encephalopathy: Resolved. Recommendations: -Continue Ampicillin 2 gm IV every 8 hours ( renally adjusted) -Anticipate discharge on Ampicillin 2 gms IV every 8 hours for total 2 weeks ending 04-23-19 -Order placed with case management - IV team unable to place midlline- IR consult placed for tunneled PICC placement ID is signing off, please call for questions. Sherrell Nelson NP [facility] M: [id number] O:[phone] Subjective Date of service: 04/12/19 Principal diagnosis: acute metabolic encephalopathy, acute on CKD, Interval history: Patient seen and examined. No generalized pain or weakness reported. No fevers. Objective - Exam Narrative Exam: Constitutional: Alert, cooperative. No acute distress Head, Ears, Nose: Normocephalic, atraumatic. External ears, nose normal Eyes: Conjunctivae/corneas clear. No icterus. No ptosis. Neck: Supple, no meningeal signs Oral: dentition fair. No thrush Cardiovascular: S1, S2 normal. Respiratory: Good air entry, clear to auscultation bilaterally GI: Soft, non-tender; bowel sounds normal. No peritoneal signs Musculoskeletal: No pedal edema, no cyanosis., Skin: No rash or abscess. Hem/Lymphatic: No palpable cervical or supraclavicular nodes. No lymphangitis Psych: Mood ok. Affect normal Neurological: Awake, alert, oriented. Left AV fistula. +thrill - Constitutional Vitals: Vital Signs Temp Pulse Resp BP Pulse Ox 97.8 F 61 20 130/56 98 04/12/19 07:24 04/12/19 07:24 04/12/19 07:24 04/12/19 07:24 04/12/19 07:24 Temperature -Last 24 Hours Temperature 97.8 F Temperature 97.8 F Temperature 98.2 F Temperature 97.5 F - Labs CBC & Chem 7: 04/12/19 05:50 04/12/19 10:42 Labs: Abnormal lab results 04/11/19 04/12/19 04/12/19 Range/Units 11:29 05:50 05:50 RBC 2.60 L (3.65-5.03) M/mm3 Hgb 7.5 L (11.8-15.2) gm/dl Hct 23.3 L (35.5-45.6) % RDW 16.7 H (13.2-15.2) % Lymph % (Auto) 8.5 L (13.4-35.0) % Carlisle % (Auto) 9.7 H (0.0-7.3) % Lymph # 0.6 L (1.2-5.4) K/mm3 Seg Neutrophils % 78.8 H (40.0-70.0) % PT 27.5 H (12.2-14.9) Sec. INR 2.62 H (0.87-1.13) Sodium 147 H (137-145) mmol/L Potassium 3.0 L (3.6-5.0) mmol/L Chloride 110.1 H (98-107) mmol/L Carbon Dioxide 21 L (22-30) mmol/L BUN 73 H (9-20) mg/dL Creatinine 3.7 H (0.8-1.5) mg/dL Glucose 144 H (75-100) mg/dL
[2019-04-12] MEDS: PROTONIX PO SCH (09:25)
[2019-04-12] MEDS: THERAGRAN Tab PO SCH (09:25)
[2019-04-12] MEDS: COLACE PO SCH (09:25)
[2019-04-12] MEDS: CELLCEPT PO SCH ×2 (09:25→22:35)
[2019-04-12] MEDS: COREG PO SCH ×2 (09:26→22:36)
[2019-04-12] MEDS: BUMEX IV SCH (09:26)
[2019-04-12] MEDS: DELTASONE PO SCH (09:27)
[2019-04-12] MEDS: SODIUM CHLORIDE FLUSH SYRINGE 10 ML IV SCH ×2 (09:27→22:36)
--- NOTE | 2019-04-12 10:18 | Progress Note ---
<BRITTNEY AGUILLON - Last Filed: 04/12/19 10:17> Assessment and Plan Volume overload Chronic renal failure status post renal transplant Chronic anemia Permanent Afib on warfarin therapy as an outpatient Hx of Sick sinus syndrome status post leadless pacemaker implant. Hypertension Valvular heart disease An echocardiogram done this admission shows mild to moderate AI with severely dilated left. There is moderate left ventricular hypertrophy and moderate to severe pulmonary hypertension with a RVSP of 59. Normal left ventricular systolic function, ejection fraction 55-60% Conservative cardiac management. Subjective Date of service: 04/12/19 Principal diagnosis: acute metabolic encephalopathy, acute on CKD, Interval history: Patient denies chest pain, shortness of breath and palpitations. Objective Vital Signs Temp Pulse Resp BP Pulse Ox 04/12/19 09:26 61 130/56 04/12/19 07:24 97.8 F 61 20 130/56 98 04/12/19 05:13 72 165/73 04/12/19 01:54 97.8 F 72 18 165/73 93 04/11/19 22:00 97 04/11/19 21:30 62 149/61 04/11/19 21:28 62 149/61 04/11/19 19:12 98.2 F 62 18 149/61 97 04/11/19 18:03 55 L 206/94 96 04/11/19 13:48 97.5 F L 65 18 148/63 96 04/11/19 11:58 52 L 162/72 04/11/19 11:48 52 L 162/72 97 - Physical Examination General: No Apparent Distress, Cachectic HEENT: Positive: PERRL Neck: Positive: neck supple Cardiac: Positive: irregularly irregular Lungs: Positive: Decreased Breath Sounds Neuro: Positive: Weakness Abdomen: Positive: Soft Extremities: Absent: edema - Labs and Meds Coagulation 04/12/19 Range/Units 05:50 PT 27.5 H (12.2-14.9) Sec. INR 2.62 H (0.87-1.13) CBC 04/12/19 Range/Units 05:50 WBC 7.1 (4.5-11.0) K/mm3 RBC 2.60 L (3.65-5.03) M/mm3 Hgb 7.5 L (11.8-15.2) gm/dl Hct 23.3 L (35.5-45.6) % Plt Count 224 (140-440) K/mm3 Lymph # 0.6 L (1.2-5.4) K/mm3 Colbert # 0.7 (0.0-0.8) K/mm3 Eos # 0.1 (0.0-0.4) K/mm3 Baso # 0.1 (0.0-0.1) K/mm3 Comprehensive Metabolic Panel 04/11/19 Range/Units 11:29 Sodium 147 H (137-145) mmol/L Potassium 3.0 L (3.6-5.0) mmol/L Chloride 110.1 H (98-107) mmol/L Carbon Dioxide 21 L (22-30) mmol/L BUN 73 H (9-20) mg/dL Creatinine 3.7 H (0.8-1.5) mg/dL Glucose 144 H (75-100) mg/dL Calcium 9.0 (8.4-10.2) mg/dL <NEDA MANCERA - Last Filed: 04/13/19 22:17> Assessment and Plan i have seen and evaluated the patient and agree with the assessment and plan. continue conservative medical therapy. Objective Vital Signs Temp Pulse Resp BP Pulse Ox 04/13/19 13:13 98.0 F 150 H 22 168/80 87 04/13/19 07:36 98.0 F 65 20 151/63 96 04/13/19 04:34 58 L 174/67 04/13/19 02:44 98.9 F 57 L 18 176/64 97 - Labs and Meds Coagulation 04/13/19 Range/Units 05:00 PT 25.3 H (12.2-14.9) Sec. INR 2.35 H (0.87-1.13)
[2019-04-12 11:19] LABS: Calcium 8.9 mg/dL (8.4-10.2)
--- NOTE | 2019-04-12 11:27 | Progress Note ---
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 SCr is stable. However, patient w/ very little muscle mass. As such, eGFR may be overestimating patient's actual renal function. Outpatient nephrology notes reviewed. Discussion re: potential need for dialysis ongoing since Nov 2018, but patient expressed reluctance. Today, patient seems more agreeable. Attempted to contact patient's to discuss likelihood of resuming dialysis, but there was no answer. * Continue current IS therapy for now * Diuresis prn - hold for now * Abx per ID/primary team * Replete lytes prn * Dose medications for renal function Subjective Date of service: 04/12/19 Principal diagnosis: acute metabolic encephalopathy, acute on CKD, Interval history: Patient denies SOB today. Objective - Vital Signs Vital signs: Vital Signs - 12hr 04/12/19 04/12/19 04/12/19 01:54 05:13 07:24 Temperature 97.8 F 97.8 F Pulse Rate 72 72 61 Respiratory 18 20 Rate Blood Pressure 165/73 165/73 130/56 O2 Sat by Pulse 93 98 Oximetry 04/12/19 09:26 Temperature Pulse Rate 61 Respiratory Rate Blood Pressure 130/56 O2 Sat by Pulse Oximetry - General Appearance General appearance: frail EENT: ATNC Respiratory: Present: Decreased Breath Sounds Cardiology: regular, S1S2 Gastrointestinal: normal, no tenderness, no distended Integumentary: warm and dry Psychiatric: cooperative - Lab 04/12/19 05:50 04/12/19 10:42 Most recent lab results Calcium 8.9 mg/dL (8.4-10.2) 04/12/19 10:42 Magnesium 2.20 mg/dL (1.7-2.3) 04/05/19 15:20 Medications & Allergies - Medications Allergies/Adverse Reactions: Allergies iodine Allergy (Verified 09/18/18 15:29) Hives IVP DYE Allergy (Uncoded 08/31/13 09:00) Hives Home Medications: Home Medications Medication Instructions Recorded Confirmed Last Taken Type Captopril (Nf) [Capoten (Nf)] 25 mg PO BID 05/25/18 04/06/19 04/04/19 08:00 History Cinacalcet HCl [Sensipar] 90 mg PO HS 05/25/18 04/06/19 04/04/19 21:00 History Furosemide [Lasix TAB] 80 mg PO QDAY 05/25/18 04/06/19 04/05/19 08:00 History Hydralazine HCl 50 mg PO Q8H 05/25/18 04/06/19 04/05/19 08:00 History Mycophenolate [Cellcept] 250 mg PO BID 05/25/18 04/06/19 04/05/19 08:00 History NIFEdipine [Nifedipine ER] 60 mg PO BID 05/25/18 04/06/19 04/05/19 08:00 History Pantoprazole [Protonix TAB] 40 mg PO QDAY 05/25/18 04/06/19 04/05/19 08:00 History Potassium Chloride [Klor-Con] 20 meq PO BID 05/25/18 04/06/19 04/05/19 08:00 History Tacrolimus [Prograf] 1 mg PO Q12H 05/25/18 04/06/19 04/05/19 08:00 History Warfarin [Coumadin] 7.5 mg PO QDAY 05/25/18 04/06/19 Unknown History predniSONE [Prednisone] 5 mg PO DAILY 05/25/18 04/06/19 04/05/19 08:00 History Docusate Sodium [Colace CAP] 100 mg PO DAILY 09/18/18 04/06/19 04/05/19 08:00 History Multivitamin [Multiple Vitamins] 1 tab PO DAILY 09/18/18 04/06/19 04/05/19 08:00 History Active Medications: Generic Name Dose Route Start Last Admin Trade Name Freq PRN Reason Stop Dose Admin Acetaminophen 650 mg 04/05/19 22:38 Tylenol PO Q4H PRN Pain MILD(1-3)/Fever >100.5/NAVARREET Bumetanide 1 mg 04/07/19 10:00 04/11/19 09:32 Bumex IV 1 mg DAILY MASON Administration Carvedilol 3.125 mg 04/06/19 13:00 04/12/19 09:26 Coreg PO 3.125 mg BID MASON Administration Cinacalcet 90 mg 04/06/19 22:00 04/11/19 21:30 Sensipar PO 90 mg HS MASON Administration Docusate Sodium 100 mg 04/06/19 10:00 04/12/19 09:25 Colace PO Not Given DAILY MASON Hydralazine HCl 50 mg 04/06/19 12:00 04/12/19 05:13 Apresoline PO 50 mg Q8H MASON Administration Hydralazine HCl 10 mg 04/09/19 02:41 04/09/19 02:56 Apresoline IV 10 mg Q4HR PRN Administration Blood Pressure Hydromorphone HCl 0.5 mg 04/05/19 22:38 Dilaudid IV Q3H PRN Pain , Severe (7-10) Ampicillin Sodium 2 gm in 100 mls @ 100 mls/hr 04/09/19 14:00 04/12/19 05:11 Ampicillin/Ns 2 Gm/100 Ml IV 100 mls/hr Q8HR MASON Administration Dextrose 1,000 mls @ 75 mls/hr 04/11/19 17:00 D5w IV 04/12/19 17:00 DIRECT MASON Metoclopramide HCl 5 mg 04/05/19 22:38 Reglan IV Q6H PRN Nausea And Vomiting Miscellaneous Medication 25 mg 04/05/19 22:30 Captopril (Nf) PO BID [facility] Multivitamins 1 each 04/06/19 10:00 04/12/19 09:25 Theragran Tab PO 1 each DAILY MASON Administration Mycophenolate Mofetil 750 mg 04/06/19 22:00 04/12/19 09:25 Cellcept PO 750 mg BID MASON Administration Nifedipine 60 mg 04/05/19 22:30 04/12/19 08:29 Procardia Xl PO Not Given BID@0800,1700 [facility] Ondansetron HCl 4 mg 04/05/19 22:38 Zofran IV Q8H PRN Nausea And Vomiting Pantoprazole Sodium 40 mg 04/06/19 10:00 04/12/19 09:25 Protonix PO 40 mg QDAY [facility]ON Administration Prednisone 5 mg 04/06/19 10:00 04/12/19 09:27 Deltasone PO 5 mg DAILY [facility] Administration Sodium Chloride 10 ml 04/06/19 10:00 04/12/19 09:27 Sodium Chloride Flush Syringe 10 Ml IV Not Given BID MASON Sodium Chloride 10 ml 04/05/19 22:38 Sodium Chloride Flush Syringe 10 Ml IV PRN PRN LINE FLUSH Tacrolimus 1 mg 04/06/19 19:00 04/12/19 06:01 Prograf PO 1 mg Q12H [facility] Administration
--- NOTE | 2019-04-12 12:42 | Progress Note ---
Assessment and Plan Assessment and plan: 68M w pmh of htn, afib on coumadin, Sp renal transplant, hx of graft rejection, pw AMS and confusion. - UTI/E faecalis bacteremia Urine culture was contaminated, but culture grew E faecalis that was pansensitive. Repeat blood cultures negative --Anticipate discharge on Ampicillin 2 gms IV every 8 hours for total 2 weeks ending 04-23-19, -Awaiting placement of the line. PICC line team was unable to place a line, IR to place line Hypernatremia Improving with D5 - Acute metabolic encephalopathy Due to renal failure and other comorbid conditions Improved - Atrial fibrillation with hypercoagulable states Rate controlled Anticoagulated with Coumadin Hypokalemia Supplemented - GERD Continue PPI - Acute on chronic combined systolic and diastolic heart failure DVT prophylaxis already on Coumadin History Interval history: Review of systems Constitutional: No fevers, no malaise, no joint pains CVS: No chest pain, no orthopnea, no dyspnea on exertion, no pedal edema GI: No abdominal pain, no diarrhea, no vomiting, no constipation Respiratory: no wheezing, no coughing Hospitalist Physical - Physical exam Narrative exam: General.: Appears well, no distress, nontoxic HEENT: Moist mucous membranes, extraocular muscles intact, no lymphadenopathy Neck: supple Cardiac: S1-S2 heard Lungs: clear to auscultation bilaterally Abdomen: soft , nontender, nondistended, bowel sounds positive Extremities: Edematous Skin: no rash or lesions Neurologic: no gross focal deficits Psych: calm, and cooperative - Constitutional Vitals: Temp Pulse Resp BP Pulse Ox 97.8 F 58 L 20 125/57 98 04/12/19 07:24 04/12/19 12:33 04/12/19 07:24 04/12/19 12:33 04/12/19 10:00 General appearance: Present: no acute distress, well-nourished Results - Labs CBC & Chem 7: 04/12/19 05:50 04/12/19 10:42 Labs: Laboratory Last Values WBC 7.1 K/mm3 (4.5-11.0) 04/12/19 05:50 RBC 2.60 M/mm3 (3.65-5.03) L 04/12/19 05:50 Hgb 7.5 gm/dl (11.8-15.2) L 04/12/19 05:50 Hct 23.3 % (35.5-45.6) L 04/12/19 05:50 MCV 90 fl (84-94) 04/12/19 05:50 MCH 29 pg (28-32) 04/12/19 05:50 MCHC 32 % (32-34) 04/12/19 05:50 RDW 16.7 % (13.2-15.2) H 04/12/19 05:50 Plt Count 224 K/mm3 (140-440) 04/12/19 05:50 Lymph % (Auto) 8.5 % (13.4-35.0) L 04/12/19 05:50 Ross % (Auto) 9.7 % (0.0-7.3) H 04/12/19 05:50 Eos % (Auto) 1.9 % (0.0-4.3) 04/12/19 05:50 Baso % (Auto) 1.1 % (0.0-1.8) 04/12/19 05:50 Lymph # 0.6 K/mm3 (1.2-5.4) L 04/12/19 05:50 Ross # 0.7 K/mm3 (0.0-0.8) 04/12/19 05:50 Eos # 0.1 K/mm3 (0.0-0.4) 04/12/19 05:50 Baso # 0.1 K/mm3 (0.0-0.1) 04/12/19 05:50 Seg Neutrophils % 78.8 % (40.0-70.0) H 04/12/19 05:50 Seg Neutrophils # 5.6 K/mm3 (1.8-7.7) 04/12/19 05:50 PT 27.5 Sec. (12.2-14.9) H 04/12/19 05:50 INR 2.62 (0.87-1.13) H 04/12/19 05:50 APTT 65.1 Sec. (24.2-36.6) H* 04/05/19 15:20 Sodium 142 mmol/L (137-145) 04/12/19 10:42 Potassium 3.0 mmol/L (3.6-5.0) L 04/12/19 10:42 Chloride 107.3 mmol/L (98-107) H 04/12/19 10:42 Carbon Dioxide 20 mmol/L (22-30) L 04/12/19 10:42 18 mmol/L 04/12/19 10:42 BUN 69 mg/dL (9-20) H 04/12/19 10:42 3.7 mg/dL (0.8-1.5) H 04/12/19 10:42 Estimated GFR 20 ml/min 04/12/19 10:42 19 % 04/12/19 10:42 Glucose 159 mg/dL (75-100) H 04/12/19 10:42 5.6 % (4-6) 04/05/19 13:40 Lactic Acid 0.80 mmol/L (0.7-2.0) 04/05/19 15:20 Calcium 8.9 mg/dL (8.4-10.2) 04/12/19 10:42 Magnesium 2.20 mg/dL (1.7-2.3) 04/05/19 15:20 0.40 mg/dL (0.1-1.2) 04/06/19 04:49 AST 31 units/L (5-40) 04/06/19 04:49 ALT 12 units/L (7-56) 04/06/19 04:49 87 units/L (35-129) 04/06/19 04:49 18.0 umol/L (25-60) L 04/05/19 15:20 22 units/L (55-170) L 04/05/19 15:20 NT-Pro-B Natriuret Pep > 48757 pg/mL (0-900) H 04/05/19 15:38 6.3 g/dL (6.3-8.2) 04/06/19 04:49 2.9 g/dL (3.9-5) L 04/06/19 04:49 0.9 % 04/06/19 04:49 TSH 3.670 mlU/mL (0.270-4.200) 04/05/19 15:20 Yellow (Yellow) 04/05/19 19:58 Slightly cloudy (Clear) 04/05/19 19:58 6.0 (5.0-7.0) 04/05/19 19:58 Ur Specific [place] 1.010 (1.003-1.030) 04/05/19 19:58 100 mg/dl mg/dL (Negative) 04/05/19 19:58 Negative mg/dL (Negative) 04/05/19 19:58 Negative mg/dL (Negative) 04/05/19 19:58 Small (Negative) A 04/05/19 19:58 Negative (Negative) 04/05/19 19:58 Negative (Negative) 04/05/19 19:58 < 2.0 mg/dL (<2.0) 04/05/19 19:58 Ur Leukocyte Esterase Large (Negative) 04/05/19 19:58 28.0 /HPF (0.0-6.0) H 04/05/19 19:58 5.0 /HPF (0.0-6.0) 04/05/19 19:58 U Epithel Cells (Auto) < 1.0 /HPF (0-13.0) 04/05/19 19:58 Few /HPF 04/05/19 19:58 Random Vancomycin 16.2 ug/mL (0-40.0) 04/08/19 13:27 Salicylates < 0.3 mg/dL (2.8-20.0) L 04/05/19 15:20 Acetaminophen < 5.0 ug/mL (10.0-30.0) L 04/05/19 15:20 Tacrolimus (Send Out) 5.4 mcg/L 04/05/19 15:20 Plasma/Serum Alcohol < 0.01 % (0-0.07) 04/05/19 15:20 Immunofix Electrophor see below 04/05/19 17:17 Active Medications - Current Medications Current Medications: Generic Name Dose Route Start Last Admin Trade Name Freq PRN Reason Stop Dose Admin Acetaminophen 650 mg 04/05/19 22:38 Tylenol PO Q4H PRN Pain MILD(1-3)/Fever >100.5/NAVARRETE Bumetanide 1 mg 04/07/19 10:00 04/11/19 09:32 Bumex IV 1 mg DAILY [facility] Administration Carvedilol 3.125 mg 04/06/19 13:00 04/12/19 09:26 Coreg PO 3.125 mg BID [facility] Administration Cinacalcet 90 mg 04/06/19 22:00 04/11/19 21:30 Sensipar PO 90 mg HS [facility]ON Administration Docusate Sodium 100 mg 04/06/19 10:00 04/12/19 09:25 Colace PO Not Given DAILY [facility] Hydralazine HCl 50 mg 04/06/19 12:00 04/12/19 12:33 Apresoline PO Not Given Q8H [facility]ON Hydralazine HCl 10 mg 04/09/19 02:41 04/09/19 02:56 Apresoline IV 10 mg Q4HR PRN Administration Blood Pressure Hydromorphone HCl 0.5 mg 04/05/19 22:38 Dilaudid IV Q3H PRN Pain , Severe (7-10) Ampicillin Sodium 2 gm in 100 mls @ 100 mls/hr 04/09/19 14:00 04/12/19 05:11 Ampicillin/Ns 2 Gm/100 Ml IV 100 mls/hr Q8HR [facility]ON Administration Dextrose 1,000 mls @ 75 mls/hr 04/11/19 17:00 D5w IV 04/12/19 17:00 DIRECT [facility]ON Metoclopramide HCl 5 mg 04/05/19 22:38 Reglan IV Q6H PRN Nausea And Vomiting Miscellaneous Medication 25 mg 04/05/19 22:30 Captopril (Nf) PO BID [facility] Multivitamins 1 each 04/06/19 10:00 04/12/19 09:25 Theragran Tab PO 1 each DAILY [facility] Administration Mycophenolate Mofetil 750 mg 04/06/19 22:00 04/12/19 09:25 Cellcept PO 750 mg BID [facility] Administration Nifedipine 60 mg 04/05/19 22:30 04/12/19 08:29 Procardia Xl PO Not Given BID@0800,1700 [facility] Ondansetron HCl 4 mg 04/05/19 22:38 Zofran IV Q8H PRN Nausea And Vomiting Pantoprazole Sodium 40 mg 04/06/19 10:00 04/12/19 09:25 Protonix PO 40 mg QDAY [facility] Administration Prednisone 5 mg 04/06/19 10:00 04/12/19 09:27 Deltasone PO 5 mg DAILY [facility] Administration Sodium Chloride 10 ml 04/06/19 10:00 04/12/19 09:27 Sodium Chloride Flush Syringe 10 Ml IV Not Given BID [facility]ON Sodium Chloride 10 ml 04/05/19 22:38 Sodium Chloride Flush Syringe 10 Ml IV PRN PRN LINE FLUSH Tacrolimus 1 mg 04/06/19 19:00 04/12/19 06:01 Prograf PO 1 mg Q12H [facility]ON Administration Nutrition/Malnutrition Assess - Dietary Evaluation Nutrition/Malnutrition Findings: Nutrition Notes Start: 04/06/19 11:57 Freq: Status: Active Protocol: Document 04/10/19 11:42 LM (Rec: 04/10/19 11:51 LM -[id number]) Nutrition Notes Initial or Follow up Reassessment Current Diagnosis Acute Kidney Injury,CKD(stage I-IV),Hypertension,Heart Failure Other Pertinent Diagnosis renal transplant failure Current Diet Renal diet Labs/Tests K 3.1 Cr 3.8 BUN 77 BG 107 Pertinent Medications Reviewed Height 5 ft 7 in Weight 49.3 kg [place] Body Weight (kg) 67.27 BMI 17.0 Subjective/Other Information Pt ate 75% of his breakfast this AM. Pt stated he likes Nepro. Percent of energy/protein needs met: 81%/99% #2 Nutrition Diagnosis Food and nutrition-related knowledge deficit Diagnosis Progress(for reassessment Continues documentation) #1 Nutrition Diagnosis Malnutrition Diagnosis Progress(for reassessment Continues documentation) Is patient on ventilator? No Is Patient Ambulatory and/or Out of Bed No REE-([facility]-confined to bed) 1471.884 Kcal/Kg value to use for calculation 40 Approximate Energy Requirements Using 1972 kcal/Kg Calculation Used for Recommendations Kcal/kg Additional Notes Protein: 59-74g (1.2-1.5g/kg) Fluids: 1 ml/kcal or per MD Nutrition Intervention Change Diet Order: Continue renal diet Add Supplement/Snack (indicate name/kcal Nepro vanilla BID /protein ) Provides kCal: 850 Provides Protein (gm) 38 Goal #1 Meet at least 80% of energy and protein needs Goal #2 Weight maintenance and/or gain Anticipated Discharge Needs: Renal diet Follow-Up By: 04/13/19 Additional Comments F/U for PO/ONS intakes
[2019-04-12] MEDS ORDERED: HEPARIN/NS 5000 UNIT/500ML(CATH LAB) 500 ML IR ONE (14:53)
[2019-04-12] MEDS ORDERED: XYLOCAINE 2% INFILTRATI ONE (14:53)
[2019-04-12] MEDS ORDERED: NACL 0.9% 250ML 250 ML ONE (15:27)
--- NOTE | 2019-04-12 16:48 | Operative Report ---
Operative Report Operative Report: Date of Procedure: 04/12/2019 Pre-operative Diagnosis: Need for Long-Term Antibiotics Post-operative Diagnosis: Same Procedure(s): 1. Ultrasound-Guided Access Right Basilic Vein 2. Placement of 5 Persian Cuffed PICC Line in the Right Subclavian Vein 3. Radiologic Supervision with Interpretation Surgeon: Leonardo Thakur M.D. 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 The PICC line easily aspirated and flushed one placed in the subclavian vein. Specimen: None Indication: The patient is a 68-year-old male who is in need of 2 weeks of antibiotics upon discharge and requires long-term IV access. He needs a PICC line for access. He was given the risk, benefits, and alternative procedures and consented to the procedure. Description of Procedure: The patient was brought to the Bottom [facility] and laid in supine position. After timeout was performed his right arm was prepped and draped in normal sterile fashion. Ultrasound was used to identify the basilic vein and confirmed patency. Once patency was confirmed the overlying skin and soft tissue was anesthetized with lidocaine. Micropuncture technique was used with ultrasound guidance to enter the basilic vein towards the outflow and a 0.018 wire was advanced. The needle was removed and a micropuncture sheath was advanced by Seldinger technique. A 0.018 V18 wire was advanced towards the central venous system and at that time I encountered a previously placed stent within the innominate vein. I was unable to cannulate the stent indicating that the stent was likely occluded however given the patient's history of contrast allergy I did not perform a venogram. I remove the micropuncture sheath and advanced a 0.018 crossing catheter over the wire and remove the wire. I was able to easily aspirate blood from the subclavian vein and easily flush the catheter indicating that the vein was patent. I readvanced the wire into position and marked the length of the wire. I advanced the peel-away sheath into position. I cut the PICC line to the length of the measured wire and then after reinserting the V 18 wire, advanced the PICC line into position over the wire with the tip in the subclavian vein. I peeled the sheath away ensuring that the cuff was buried under the skin. I was able to easily aspirate and flush both ports of the PICC line. I secured the catheter in position with a 2-0 Ethilon in interrupted fashion and then a Biopatch and sterile dressing were placed around the catheter. The patient tolerated the procedure well. All sponge, needle, and instrument counts were correct. The patient was transported back to his room in stable condition.
[2019-04-12] MEDS ORDERED: COUMADIN PO SCH (17:00)
[2019-04-12] MEDS: SENSIPAR PO SCH (22:36)
[2019-04-13] MEDS: APRESOLINE PO SCH ×2 (04:34→13:41)
[2019-04-13 05:49] LABS: INR 2.35 (0.87-1.13)
[2019-04-13] MEDS: AMPICILLIN/NS 2 GM/100 ML 2 GM/100 ML BAG IV SCH ×2 (06:17→13:41)
[2019-04-13] MEDS: PROGRAF PO SCH (06:18)
[2019-04-13 06:25] LABS: Creatinine,Urine 79.3 mg/dL (0.1-20.0)
[2019-04-13 06:37] LABS: Creatinine 24 Hour,Urine 0.4 (0.8-2.8)
--- NOTE | 2019-04-13 07:33 | Discharge Summary ---
Providers - Providers Date of Admission: 04/05/19 18:06 Attending physician: OLESYA SANDERS MD 04/05/19 14:56 Consult to Physician [CONS] Urgent Comment: DR JOHNS SPK W/DR JOHNS @1454 Consulting Provider: KRISTIAN KELLY Physician Instructions: Reason For Exam: saturnino 04/06/19 08:11 Consult to Physician [CONS] Routine Comment: Consulting Provider: ERIN PLASCENCIA Physician Instructions: Reason For Exam: CHF 04/06/19 13:45 Physical Therapy Evaluation and Treat [CONS] Routine Comment: Reason For Exam: Debility 04/08/19 21:01 Consult to Physician [CONS] Urgent Comment: called ans. serv,/eva Consulting Provider: RANI MITCHELL Physician Instructions: Reason For Exam: Gram + bacterimea in a pt with metab. encephalp. 04/12/19 08:59 Consult to PICC Line RN [CONS] Routine Reason For Exam: OPAT Type Line:: Midline 04/12/19 09:00 Consult to Case Management [CONS] Routine Services Needed at Discharge: Home Health Services Notified:: Case Management Phone number called:: [phone] Was contact made?: Yes If yes, spoke with:: Heydi Time called:: 09:00 Additional Physician Instructions: [facility] M [phone] O [phone] F [phone] OUTPATIENT PARENTERAL ANTIBIOTIC THERAPY ORDERS Diagnoses: E. Faecalis Bacteremia/UTI Antimicrobial administration: Anticipate discharge on Ampicillin 2 gms IV every 8 hours for total 2 weeks ending 04-23-19. Upon completion tunnled PICC to be removed by IR . Lines: Tunneled PICC Lab monitoring: CBC, ALT, AST, once a week preferly on Wednesday morning. Please fax results to [phone] and call [phone] for critical lab results. Sherrell Nelson NP/Sasha Johnson MD Date: 04/12/19 04/12/19 11:40 Consult to Interventional Radiology [CONS] Routine Consulting Provider: XIOMARA GUERRERO Reason For Exam: tunneled catheter for OPAT Place consult to:: Xiomara Neves Notified:: XIOMARA GUERRERO Phone number called:: [phone] Was contact made?: Yes If yes, spoke with:: GARDENIA Time called:: 11:52 Comment:: CARLOS MANUEL Primary care physician: [facility] MD KAYLYNN Hospitalization Condition: Fair Hospital course: 68M w pmh of htn, afib on coumadin, Sp renal transplant, hx of graft rejection, pw AMS and confusion. - UTI/E faecalis bacteremia Urine culture was contaminated, but culture grew E faecalis that was pansensitive. Repeat blood cultures negative --Anticipate discharge on Ampicillin 2 gms IV every 8 hours for total 2 weeks ending 04-23-19, -Awaiting placement of the line. PICC line team was unable to place a line, IR to place line Hypernatremia Improving with D5 - Acute metabolic encephalopathy Due to renal failure and other comorbid conditions Improved - Atrial fibrillation with hypercoagulable states Rate controlled Anticoagulated with Coumadin Hypokalemia Supplemented - GERD Continue PPI - Acute on chronic combined systolic and diastolic heart failure DVT prophylaxis already on Coumadin Disposition: DC/TX-06 HOME UNDER HOME [facility] Time spent for discharge: 33 mins Core Measure Documentation - Palliative Care Palliative Care/ Comfort Measures: Not Applicable - Core Measures Any of the following diagnoses?: none Exam - Physical Exam Narrative exam: General.: Appears well, no distress, nontoxic HEENT: Moist mucous membranes, extraocular muscles intact, no lymphadenopathy Neck: supple Cardiac: S1-S2 heard Lungs: clear to auscultation bilaterally Abdomen: soft , nontender, nondistended, bowel sounds positive Extremities: Edematous Skin: no rash or lesions Neurologic: no gross focal deficits Psych: calm, and cooperative - Constitutional Vitals: Temp Pulse Resp BP Pulse Ox 98.9 F 58 L 18 174/67 97 04/13/19 02:44 04/13/19 04:34 04/13/19 02:44 04/13/19 04:34 04/13/19 02:44 Plan Follow up with: MADHU FLOYD MD [Primary Care Provider] - 3-5 Days Prescriptions: hydrALAZINE [Apresoline TAB] 50 mg PO Q8H 30 Days tablet Warfarin [Coumadin] 2.5 mg PO DAILY@1700 #30 tablet
--- NOTE | 2019-04-13 08:27 | Progress Note ---
Subjective Principal diagnosis: acute metabolic encephalopathy, acute on CKD, Interval history: Patient was seen today for follow-up, on many renal related issues he is resting comfortably in bed does complain of shortness of breath patient appears to be thin cachectic, deconditioned, and weak appearing Interdisciplinary notes were reviewed Vitals labs intake and output medications were reviewed from today Allergies: Reviewed Social history: Reviewed Family history: Reviewed Physical examination HEENT: Oral mucosa moist no pharyngeal erythema Neck: Supple some JVD Chest:lateral basilar crackles Heart: Regular rate and rhythm S1-S2 heard no S3-S4 Abdomen: Soft nontender no renal bruit no CVA tenderness no suprapubic fullness Extremity: Mild edema dry skin no peripheral cyanosis pulses palpable left arm fistula appears to be working okay Neurological: Alert awake Musculoskeletal: No joint effusion noted Significant loss of muscle mass Dean catheter Assessment and plan Patient has advanced renal failure is symptomatic with uremia, appears to be cachectic losing muscle mass has congestive heart failure, had a long discussion of patient at the bedside he does have a functioning fistula in his left arm I believe he'll benefit from initiation of renal replacement therapy patient however refuses to do so and wants to wait for 2 more days I had discussed with him already about possible initiation of renal replacement therapy during this hospitalization when I met with him along with his at the clinic and they were in agreement to start dialysis, We need to discuss with patient along with his to see what they would like to do, patient appears to be very noncompliant He has been clearly educated that dialysis is required , he does not give me a straight answer At this time dialysis may bring some good as far as health and quality outcome is concerned, but only time can tell, without dialysis his prognosis is very poor in general time-limited trial can be given however Also his overall health status is very poor, his prognosis is very poor, his mortality risk is very high, he is very noncompliant as far as his health is concerned and this has been discussed with patient's is well I discussed with patient's nurse that she needs to let us know when his is available so that we can talk to her and, per the treatment plan Patient alternatively can be considered for hospice if he is agreeable Labs were discussed with patient explained and simple Uzbek does have good understanding off renal related issues, Will continue to follow and make recommendation from renal standpoint Objective - Vital Signs Vital signs: Vital Signs - 12hr 04/12/19 04/12/19 04/13/19 20:34 22:00 02:44 Temperature 98.9 F Pulse Rate 61 57 L Respiratory 18 Rate Blood Pressure 154/50 176/64 O2 Sat by Pulse 99 97 Oximetry 04/13/19 04/13/19 04:34 07:36 Temperature 98.0 F Pulse Rate 58 L 65 Respiratory 20 Rate Blood Pressure 174/67 151/63 O2 Sat by Pulse 96 Oximetry - Lab 04/12/19 05:50 04/12/19 10:42 Most recent lab results Calcium 8.9 mg/dL (8.4-10.2) 04/12/19 10:42 Magnesium 2.20 mg/dL (1.7-2.3) 04/05/19 15:20 79.3 mg/dL (0.1-20.0) H 04/13/19 Unknown Medications & Allergies - Medications Allergies/Adverse Reactions: Allergies iodine Allergy (Verified 09/18/18 15:29) Hives IVP DYE Allergy (Uncoded 08/31/13 09:00) Hives Home Medications: Home Medications Medication Instructions Recorded Confirmed Last Taken Type Captopril (Nf) [Capoten (Nf)] 25 mg PO BID 05/25/18 04/06/19 04/04/19 08:00 History Cinacalcet HCl [Sensipar] 90 mg PO HS 05/25/18 04/06/19 04/04/19 21:00 History Furosemide [Lasix TAB] 80 mg PO QDAY 05/25/18 04/06/19 04/05/19 08:00 History Hydralazine HCl 50 mg PO Q8H 05/25/18 04/06/19 04/05/19 08:00 History Mycophenolate [Cellcept] 250 mg PO BID 05/25/18 04/06/19 04/05/19 08:00 History NIFEdipine [Nifedipine ER] 60 mg PO BID 05/25/18 04/06/19 04/05/19 08:00 History Pantoprazole [Protonix TAB] 40 mg PO QDAY 05/25/18 04/06/19 04/05/19 08:00 History Potassium Chloride [Klor-Con] 20 meq PO BID 05/25/18 04/06/19 04/05/19 08:00 History Tacrolimus [Prograf] 1 mg PO Q12H 05/25/18 04/06/19 04/05/19 08:00 History predniSONE [Prednisone] 5 mg PO DAILY 05/25/18 04/06/19 04/05/19 08:00 History Docusate Sodium [Colace CAP] 100 mg PO DAILY 09/18/18 04/06/19 04/05/19 08:00 History Multivitamin [Multiple Vitamins] 1 tab PO DAILY 09/18/18 04/06/19 04/05/19 08:00 History Carvedilol [Coreg] 3.125 mg PO BID tablet 04/13/19 Unknown Rx Warfarin [Coumadin] 2.5 mg PO DAILY@1700 #30 tablet 04/13/19 Unknown Rx hydrALAZINE [Apresoline TAB] 50 mg PO Q8H 30 Days tablet 04/13/19 Unknown Rx Active Medications: Generic Name Dose Route Start Last Admin Trade Name Freq PRN Reason Stop Dose Admin Acetaminophen 650 mg 04/05/19 22:38 Tylenol PO Q4H PRN Pain MILD(1-3)/Fever >100.5/NAVARRETE Bumetanide 1 mg 04/07/19 10:00 04/12/19 09:26 Bumex IV 1 mg DAILY [facility] Administration Carvedilol 3.125 mg 04/06/19 13:00 04/12/19 22:36 Coreg PO 3.125 mg BID [facility]ON Administration Cinacalcet 90 mg 04/06/19 22:00 04/12/19 22:36 Sensipar PO 90 mg HS [facility]ON Administration Docusate Sodium 100 mg 04/06/19 10:00 04/12/19 09:25 Colace PO Not Given DAILY [facility] Hydralazine HCl 50 mg 04/06/19 12:00 04/13/19 04:34 Apresoline PO 50 mg Q8H [facility]ON Administration Hydralazine HCl 10 mg 04/09/19 02:41 04/09/19 02:56 Apresoline IV 10 mg Q4HR PRN Administration Blood Pressure Hydromorphone HCl 0.5 mg 04/05/19 22:38 Dilaudid IV Q3H PRN Pain , Severe (7-10) Ampicillin Sodium 2 gm in 100 mls @ 100 mls/hr 04/09/19 14:00 04/13/19 06:17 Ampicillin/Ns 2 Gm/100 Ml IV 04/23/19 22:59 100 mls/hr Q8HR [facility]ON Administration Metoclopramide HCl 5 mg 04/05/19 22:38 Reglan IV Q6H PRN Nausea And Vomiting Miscellaneous Medication 25 mg 04/05/19 22:30 Captopril (Nf) PO BID [facility] Multivitamins 1 each 04/06/19 10:00 04/12/19 09:25 Theragran Tab PO [address] [facility] Administration Mycophenolate Mofetil 750 mg 04/06/19 22:00 04/12/19 22:35 Cellcept PO [address] [facility] Administration Nifedipine 60 mg 04/05/19 22:30 04/12/19 17:23 Procardia Xl PO Not Given BID@0800,1700 [facility] Ondansetron HCl 4 mg 04/05/19 22:38 Zofran IV Q8H PRN Nausea And Vomiting Pantoprazole Sodium 40 mg 04/06/19 10:00 04/12/19 09:25 Protonix PO 40 mg QDAY [facility] Administration Prednisone 5 mg 04/06/19 10:00 04/12/19 09:27 Deltasone PO 5 mg DAILY [facility] Administration Sodium Chloride 10 ml 04/06/19 10:00 04/12/19 22:36 Sodium Chloride Flush Syringe 10 Ml IV 10 ml BID [facility] Administration Sodium Chloride 10 ml 04/05/19 22:38 Sodium Chloride Flush Syringe 10 Ml IV PRN PRN LINE FLUSH Tacrolimus 1 mg 04/06/19 19:00 04/13/19 06:18 Prograf PO 1 mg Q12H [facility] Administration Warfarin Sodium 2.5 mg 04/12/19 17:00 04/12/19 17:26 Coumadin PO 2.5 mg DAILY@1700 [facility] Administration
[2019-04-13] MEDS: CELLCEPT PO SCH (10:01)
[2019-04-13] MEDS: PROCARDIA XL PO SCH (10:01)
[2019-04-13] MEDS: COREG PO SCH (10:01)
[2019-04-13] MEDS: DELTASONE PO SCH (10:01)
[2019-04-13] MEDS: COLACE PO SCH (10:02)
[2019-04-13] MEDS: SODIUM CHLORIDE FLUSH SYRINGE 10 ML IV SCH (10:02)
[2019-04-13] MEDS: THERAGRAN Tab PO SCH (10:02)
[2019-04-13] MEDS: PROTONIX PO SCH (10:02)
[2019-04-13] MEDS: BUMEX IV SCH (10:02)
--- NOTE | 2019-04-13 11:08 | Progress Note ---
Assessment and Plan Volume overload E. Faecalis Bacteremia Chronic renal failure status post renal transplant Chronic anemia Permanent Afib on warfarin therapy as an outpatient Hx of Sick sinus syndrome status post leadless pacemaker implant. Hypertension Valvular heart disease An echocardiogram done this admission shows mild to moderate AI with severely dilated left. There is moderate left ventricular hypertrophy and moderate to severe pulmonary hypertension with a RVSP of 59. Normal left ventricular systolic function, ejection fraction 55-60% Conservative cardiac management. Subjective Date of service: 04/13/19 Principal diagnosis: acute metabolic encephalopathy, acute on CKD, Interval history: No cardiac complaints. Objective Vital Signs Temp Pulse Resp BP BP Pulse Ox 04/13/19 07:36 98.0 F 65 20 151/63 96 04/13/19 04:34 58 L 174/67 04/13/19 02:44 98.9 F 57 L 18 176/64 97 04/12/19 22:00 99 04/12/19 20:34 61 154/50 04/12/19 20:24 98.3 F 56 L 18 100 04/12/19 19:00 98.3 F 61 18 156/48 95 04/12/19 17:13 56 L 125/51 99 04/12/19 13:56 97.9 F 109 H 20 124/64 97 04/12/19 12:33 58 L 125/57 04/12/19 11:38 58 L 125/57 96 - Physical Examination General: No Apparent Distress, Cachectic HEENT: Positive: PERRL Neck: Positive: neck supple Cardiac: Positive: irregularly irregular Lungs: Positive: Decreased Breath Sounds Neuro: Positive: Weakness Abdomen: Positive: Soft Skin: Positive: Clear Extremities: Absent: edema - Labs and Meds Coagulation 04/13/19 Range/Units 05:00 PT 25.3 H (12.2-14.9) Sec. INR 2.35 H (0.87-1.13) Comprehensive Metabolic Panel 04/12/19 Range/Units 10:42 Sodium 142 (137-145) mmol/L Potassium 3.0 L (3.6-5.0) mmol/L Chloride 107.3 H (98-107) mmol/L Carbon Dioxide 20 L (22-30) mmol/L BUN 69 H (9-20) mg/dL Creatinine 3.7 H (0.8-1.5) mg/dL Glucose 159 H (75-100) mg/dL Calcium 8.9 (8.4-10.2) mg/dL - Imaging and Cardiology EKG: report reviewed (Afib LVH)
--- NOTE | 2019-04-13 11:11 | Progress Note ---
Assessment and Plan Assessment and plan: 68M w pmh of htn, afib on coumadin, Sp renal transplant, hx of graft rejection, pw AMS and confusion. - UTI/E faecalis bacteremia Urine culture was contaminated, but culture grew E faecalis that was pansensitive. Repeat blood cultures negative --Anticipate discharge on Ampicillin 2 gms IV every 8 hours for total 2 weeks ending 04-23-19, - PIcc line placed by IR Hypernatremia Improving with D5 - Acute metabolic encephalopathy Due to renal failure and other comorbid conditions Improved - Atrial fibrillation with hypercoagulable states Rate controlled Anticoagulated with Coumadin Hypokalemia Supplemented - GERD Continue PPI - Acute on chronic combined systolic and diastolic heart failure DVT prophylaxis already on Coumadin Dispo; awaiting [facility]ARDO placement Hospitalist Physical - Constitutional Vitals: Temp Pulse Resp BP Pulse Ox 98.0 F 65 20 151/63 96 04/13/19 07:36 04/13/19 07:36 04/13/19 07:36 04/13/19 07:36 04/13/19 07:36 General appearance: Present: no acute distress, well-nourished Results - Labs CBC & Chem 7: 04/12/19 05:50 04/12/19 10:42 Labs: Laboratory Last Values WBC 7.1 K/mm3 (4.5-11.0) 04/12/19 05:50 RBC 2.60 M/mm3 (3.65-5.03) L 04/12/19 05:50 Hgb 7.5 gm/dl (11.8-15.2) L 04/12/19 05:50 Hct 23.3 % (35.5-45.6) L 04/12/19 05:50 MCV 90 fl (84-94) 04/12/19 05:50 MCH 29 pg (28-32) 04/12/19 05:50 MCHC 32 % (32-34) 04/12/19 05:50 RDW 16.7 % (13.2-15.2) H 04/12/19 05:50 Plt Count 224 K/mm3 (140-440) 04/12/19 05:50 Lymph % (Auto) 8.5 % (13.4-35.0) L 04/12/19 05:50 [place] % (Auto) 9.7 % (0.0-7.3) H 04/12/19 05:50 Eos % (Auto) 1.9 % (0.0-4.3) 04/12/19 05:50 Baso % (Auto) 1.1 % (0.0-1.8) 04/12/19 05:50 Lymph # 0.6 K/mm3 (1.2-5.4) L 04/12/19 05:50 [place] # 0.7 K/mm3 (0.0-0.8) 04/12/19 05:50 Eos # 0.1 K/mm3 (0.0-0.4) 04/12/19 05:50 Baso # 0.1 K/mm3 (0.0-0.1) 04/12/19 05:50 Seg Neutrophils % 78.8 % (40.0-70.0) H 04/12/19 05:50 Seg Neutrophils # 5.6 K/mm3 (1.8-7.7) 04/12/19 05:50 PT 25.3 Sec. (12.2-14.9) H 04/13/19 05:00 INR 2.35 (0.87-1.13) H 04/13/19 05:00 APTT 65.1 Sec. (24.2-36.6) H* 04/05/19 15:20 Sodium 142 mmol/L (137-145) 04/12/19 10:42 Potassium 3.0 mmol/L (3.6-5.0) L 04/12/19 10:42 Chloride 107.3 mmol/L (98-107) H 04/12/19 10:42 Carbon Dioxide 20 mmol/L (22-30) L 04/12/19 10:42 18 mmol/L 04/12/19 10:42 BUN 69 mg/dL (9-20) H 04/12/19 10:42 3.7 mg/dL (0.8-1.5) H 04/12/19 10:42 Estimated GFR 20 ml/min 04/12/19 10:42 19 % 04/12/19 10:42 Glucose 159 mg/dL (75-100) H 04/12/19 10:42 5.6 % (4-6) 04/05/19 13:40 Lactic Acid 0.80 mmol/L (0.7-2.0) 04/05/19 15:20 Calcium 8.9 mg/dL (8.4-10.2) 04/12/19 10:42 Magnesium 2.20 mg/dL (1.7-2.3) 04/05/19 15:20 0.40 mg/dL (0.1-1.2) 04/06/19 04:49 AST 31 units/L (5-40) 04/06/19 04:49 ALT 12 units/L (7-56) 04/06/19 04:49 87 units/L (35-129) 04/06/19 04:49 18.0 umol/L (25-60) L 04/05/19 15:20 22 units/L (55-170) L 04/05/19 15:20 NT-Pro-B Natriuret Pep > 01963 pg/mL (0-900) H 04/05/19 15:38 6.3 g/dL (6.3-8.2) 04/06/19 04:49 2.9 g/dL (3.9-5) L 04/06/19 04:49 0.9 % 04/06/19 04:49 TSH 3.670 mlU/mL (0.270-4.200) 04/05/19 15:20 Yellow (Yellow) 04/05/19 19:58 Slightly cloudy (Clear) 04/05/19 19:58 6.0 (5.0-7.0) 04/05/19 19:58 Ur Specific [place] 1.010 (1.003-1.030) 04/05/19 19:58 100 mg/dl mg/dL (Negative) 04/05/19 19:58 Negative mg/dL (Negative) 04/05/19 19:58 Negative mg/dL (Negative) 04/05/19 19:58 Small (Negative) A 04/05/19 19:58 Negative (Negative) 04/05/19 19:58 Negative (Negative) 04/05/19 19:58 < 2.0 mg/dL (<2.0) 04/05/19 19:58 Ur Leukocyte Esterase Large (Negative) 04/05/19 19:58 28.0 /HPF (0.0-6.0) H 04/05/19 19:58 5.0 /HPF (0.0-6.0) 04/05/19 19:58 U Epithel Cells (Auto) < 1.0 /HPF (0-13.0) 04/05/19 19:58 Few /HPF 04/05/19 19:58 500 ml 04/13/19 Unknown 79.3 mg/dL (0.1-20.0) H 04/13/19 Unknown Ur Creatinine 24 Hour 0.4 (0.8-2.8) L 04/13/19 Unknown Random Vancomycin 16.2 ug/mL (0-40.0) 04/08/19 13:27 Salicylates < 0.3 mg/dL (2.8-20.0) L 04/05/19 15:20 Acetaminophen < 5.0 ug/mL (10.0-30.0) L 04/05/19 15:20 Tacrolimus (Send Out) 5.4 mcg/L 04/05/19 15:20 Plasma/Serum Alcohol < 0.01 % (0-0.07) 04/05/19 15:20 Immunofix Electrophor see below 04/05/19 17:17 Active Medications - Current Medications Current Medications: Generic Name Dose Route Start Last Admin Trade Name Freq PRN Reason Stop Dose Admin Acetaminophen 650 mg 04/05/19 22:38 Tylenol PO Q4H PRN Pain MILD(1-3)/Fever >100.5/NAVARRETE Bumetanide 1 mg 04/07/19 10:00 04/13/19 10:02 Bumex IV 1 mg DAILY [facility]ON Administration Carvedilol 3.125 mg 04/06/19 13:00 04/13/19 10:01 Coreg PO 3.125 mg BID MASON Administration Cinacalcet 90 mg 04/06/19 22:00 04/12/19 22:36 Sensipar PO 90 mg HS MASON Administration Docusate Sodium 100 mg 04/06/19 10:00 04/13/19 10:02 Colace PO 100 mg DAILY [facility]ON Administration Hydralazine HCl 50 mg 04/06/19 12:00 04/13/19 04:34 Apresoline PO 50 mg Q8H MASON Administration Hydralazine HCl 10 mg 04/09/19 02:41 04/09/19 02:56 Apresoline IV 10 mg Q4HR PRN Administration Blood Pressure Hydromorphone HCl 0.5 mg 04/05/19 22:38 Dilaudid IV Q3H PRN Pain , Severe (7-10) Ampicillin Sodium 2 gm in 100 mls @ 100 mls/hr 04/09/19 14:00 04/13/19 06:17 Ampicillin/Ns 2 Gm/100 Ml IV 04/23/19 22:59 100 mls/hr Q8HR MASON Administration Metoclopramide HCl 5 mg 04/05/19 22:38 Reglan IV Q6H PRN Nausea And Vomiting Miscellaneous Medication 25 mg 04/05/19 22:30 Captopril (Nf) PO BID MASON Multivitamins 1 each 04/06/19 10:00 04/13/19 10:02 Theragran Tab PO 1 each DAILY [facility]ON Administration Mycophenolate Mofetil 750 mg 04/06/19 22:00 04/13/19 10:01 Cellcept PO 750 mg BID [facility]ON Administration Nifedipine 60 mg 04/05/19 22:30 04/13/19 10:01 Procardia Xl PO 60 mg BID@0800,1700 [facility]ON Administration Ondansetron HCl 4 mg 04/05/19 22:38 Zofran IV Q8H PRN Nausea And Vomiting Pantoprazole Sodium 40 mg 04/06/19 10:00 04/13/19 10:02 Protonix PO 40 mg QDAY MASON Administration Prednisone 5 mg 04/06/19 10:00 04/13/19 10:01 Deltasone PO 5 mg DAILY [facility] Administration Sodium Chloride 10 ml 04/06/19 10:00 04/13/19 10:02 Sodium Chloride Flush Syringe 10 Ml IV 10 ml BID [facility]ON Administration Sodium Chloride 10 ml 04/05/19 22:38 Sodium Chloride Flush Syringe 10 Ml IV PRN PRN LINE FLUSH Tacrolimus 1 mg 04/06/19 19:00 04/13/19 06:18 Prograf PO 1 mg Q12H MASON Administration Warfarin Sodium 2.5 mg 04/12/19 17:00 04/12/19 17:26 Coumadin PO 2.5 mg DAILY@1700 MASON Administration Nutrition/Malnutrition Assess - Dietary Evaluation Nutrition/Malnutrition Findings: Nutrition Notes Start: 04/06/19 11:57 Freq: Status: Active Protocol: Document 04/10/19 11:42 LM (Rec: 04/10/19 11:51 LM [id number]) Nutrition Notes Initial or Follow up Reassessment Current Diagnosis Acute Kidney Injury,CKD(stage I-IV),Hypertension,Heart Failure Other Pertinent Diagnosis renal transplant failure Current Diet Renal diet Labs/Tests K 3.1 Cr 3.8 BUN 77 BG 107 Pertinent Medications Reviewed Height 5 ft 7 in Weight 49.3 kg [place] Body Weight (kg) 67.27 BMI 17.0 Subjective/Other Information Pt ate 75% of his breakfast this AM. Pt stated he likes Nepro. Percent of energy/protein needs met: 81%/99% #2 Nutrition Diagnosis Food and nutrition-related knowledge deficit Diagnosis Progress(for reassessment Continues documentation) #1 Nutrition Diagnosis Malnutrition Diagnosis Progress(for reassessment Continues documentation) Is patient on ventilator? No Is Patient Ambulatory and/or Out of Bed No REE-([facility]-confined to bed) 1471.884 Kcal/Kg value to use for calculation 40 Approximate Energy Requirements Using 1972 kcal/Kg Calculation Used for Recommendations Kcal/kg Additional Notes Protein: 59-74g (1.2-1.5g/kg) Fluids: 1 ml/kcal or per Nutrition Intervention Change Diet Order: Continue renal diet Add Supplement/Snack (indicate name/kcal Nepro vanilla BID /protein ) Provides kCal: 850 Provides Protein (gm) 38 Goal #1 Meet at least 80% of energy and protein needs Goal #2 Weight maintenance and/or gain Anticipated Discharge Needs: Renal diet Follow-Up By: 04/13/19 Additional Comments F/U for PO/ONS intakes
[2019-04-13 14:26] VITALS: BP 168/80
== END 2019-04-13 16:35 | DRG 698 ==
LOC: ED 12:19 → 2B-ACE 18:06
PROVIDERS: ADMIT Internal Medicine; ATTEND Internal Medicine
PROC: B546ZZA Ultrasonography of Right Subclavian Vein, Guidance (ICD-10-PCS; principal; 2019-04-12)
PROC: 05H533Z Insertion of Infusion Device into Right Subclavian Vein, Percutaneous Approach (ICD-10-PCS; 2019-04-12)
DX: T86.12 Kidney transplant failure (principal); G93.41 Metabolic encephalopathy; I50.43 Acute on chronic combined systolic (congestive) and diastolic (congestive) heart failure; N17.9 Acute kidney failure, unspecified; R78.81 Bacteremia; N39.0 Urinary tract infection, site not specified; E87.0 Hyperosmolality and hypernatremia; D68.59 Other primary thrombophilia; I13.2 Hypertensive heart and chronic kidney disease with heart failure and with stage 5 chronic kidney disease, or end stage renal disease; E46 Unspecified protein-calorie malnutrition; D68.8 Other specified coagulation defects; N18.5 Chronic kidney disease, stage 5; Y83.8 Other surgical procedures as the cause of abnormal reaction of the patient, or of later complication, without mention of misadventure at the time of the procedure; T86.11 Kidney transplant rejection; I48.2 Chronic atrial fibrillation; E87.70 Fluid overload, unspecified; B95.2 Enterococcus as the cause of diseases classified elsewhere; E87.6 Hypokalemia; K21.9 Gastro-esophageal reflux disease without esophagitis; D50.0 Iron deficiency anemia secondary to blood loss (chronic); I49.5 Sick sinus syndrome; D63.1 Anemia in chronic kidney disease; I27.20 Pulmonary hypertension, unspecified; Z95.0 Presence of cardiac pacemaker; Z79.01 Long term (current) use of anticoagulants; Z91.041 Radiographic dye allergy status; Z79.899 Other long term (current) drug therapy; Z68.20 Body mass index [BMI] 20.0-20.9, adult; Z82.49 Family history of ischemic heart disease and other diseases of the circulatory system
CPT/HCPCS: 36415; 36558; 70450; 71045; 74176; 76775; 77001; 80048; 80053; 80197; 80202; 80320; 81001; 82140; 82550; 82570; 83036; 83735; 83880; 84443; 85025; 85610; 85730; 86334; 87040; 87076; 87086; 87186; 93005; 93010; 93306; 96374; G0378; C1725; C1751; C1769; G0480; J0290; J0295; J0360; J0696; J0885; J1644; J3370; J7030; J7050; J7070; J7507; J7512; J7517